=== PATIENT | female | born 2000 | race Caucasian/White ===

== ENCOUNTER 2020-07-29 02:04 | Emergency (ER) | payer SELFPAY ==
--- OUTSIDE RECORDS SUMMARY | 2020-07-29 02:06 | XMS REPORT ---
:2000 Author Organization [facility] Address [address] [place] [address] Care Team Providers Name Role Phone Martha Hooper Unavailable [phone] PROBLEMS Type Condition ICD9-CM [id number] Onset Condition SNOMED Code Notes Code Code Dates Status Problem Irregular N92.6 Active 26415709 menstrual cycle Problem Palpitations R00.2 Active 60628896 ALLERGIES No Known Allergies ENCOUNTERS from 2000 to 2020-07-05 Encounter Location Date Provider Diagnosis [facility] [address] Jun, Martha Hooper BCP ( control Family [facility] [place], [place] pills) i nitiation [id number] Z30.011 and Irregular menst rual cycle N92.6 IMMUNIZATIONS Vaccine Route Administration Date Status medroxyprogesterone ac IM Intramuscular January 05, 2018 Administ ered medroxyprogesterone ac Unknown December 30, 2017 Pending SOCIAL HISTORY Tobacco Use: Social History Observation Description Date Details (start date - stop date) Never Smoker Sex Assigned At : Social History Observation Description Sex Assigned At Unknown Tobacco Use/Smoking Question Answer Notes Are you a never smoker REASON FOR REFERRAL No Information VITAL SIGNS Height 66 in Jun, Weight 108 lbs Jun, Temperature 97.0 degrees Fahrenheit Jun, BMI 17.43 kg/m2 Jun, Oximetry 96 % Jun, Respiratory Rate 16 /min Jun, Blood pressure systolic 110 mm Hg Jun, Blood pressure diastolic 63 mm Hg Jun, MEDICATIONS Medication SIG (Take, Route, Notes Start Date End Date Status Frequency, Duration) Sprintec 28 0.25-35 MG-MCG 1 tablet Orally Once a Mar, Active day for 30 days Multivitamin Active PROCEDURES No Information RESULTS Component Value Reference Range Test, Urine Reviewed date:07/05/2020 18:05:33 Interpretation:Negative Performing Lab: Test, Urine Request Problem REASON FOR VISIT 2 week follow up [id number]) MEDICAL (GENERAL) HISTORY Type Description Date Surgical History No Surgical history information Goals Section No Information Health Concerns No Information MEDICAL EQUIPMENT No Information MENTAL STATUS No Information FUNCTIONAL STATUS No Information ASSESSMENTS Encounter Date Diagnosis Assessment Notes Treatment Notes Treatm ent Clinical Notes Jun, BCP ( control start as drie cted pills) initiation take daily (ICD-10 - Z30.011) continue to use condoms for sex BCP takes 2 weeks to get into system. Jun, Irregular menstrual cycle (ICD-10 - N92.6) PLAN OF TREATMENT Medication Medication Name Sig Start Date Stop Date Sprintec 28 0.25-35 MG-MCG 1 tablet Orally Once a day for 30 Mar, days Treatment Notes Assessment Notes Clinical Notes BCP ( control pills) start as driectedtake dailycontinu e initiation to use condoms for sex BCP takes 2 weeks to get into system. Next Appt Details 1 Year Reason: Provider Name:Martha Hooper, 2021-07-05 10 :20:00 AM, [address] [facility], [address], [place], [address],
--- OUTSIDE RECORDS SUMMARY | 2020-07-29 02:06 | XMS REPORT | Summary of Care ---
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 Palpitations; [address] [phone] Allergies No Known Allergiesdocumented as of this encounter (statuses as of 05/05/2020) Medications No known medicationsdocumented as of this encounter (statuses as of 05/05/2020) Active Problems No known active problemsdocumented as of this encounter (statuses as of 05/05/2020) Social History Tobacco Use Types Packs/Day Years Used Date Never Assessed Sex Assigned at Date Recorded Not on file COVID-19 Exposure Response Date Recorded In the last month, have you been in contact with No / Unsure 05/04/2020 11:18 PM CDT someone who was confirmed or suspected to have Coronavirus / COVID-19? documented as of this encounter Last Filed Vital Signs Vital Sign Reading Time Taken Comments Blood Pressure 113/71 05/05/2020 12:44 AM CDT Pulse 88 05/05/2020 12:44 AM CDT Temperature 37.2 C (99 F) 05/04/2020 11:21 PM CDT Respiratory Rate 22 05/05/2020 12:44 AM CDT Oxygen Saturation 98% 05/05/2020 12:44 AM CDT Inhaled Oxygen Concentration - - Weight 50.8 kg (112 lb) 05/04/2020 11:21 PM CDT Height 165.1 cm (5' 5") 05/04/2020 11:21 PM CDT Body Mass Index 18.64 05/04/2020 11:21 PM CDT documented in this encounter Discharge Instructions SisiWarren franceDREW - 05/05/2020DIAGNOSIS 1. Palpitations 2. Dehydration NO LIFE-THREATENING FINDINGS ON TODAY'S EXAM. RECOMMEND FOLLOW-UP WITH A PRIMARY CARE PROVIDER OR SPECIALIST IN 2-5 DAYS, ESPECIALLY IF NO IMPROVEMENT IN SYMPTOMS. MAY FOLLOW-UP WITH A PROVIDER OF YOUR CHOICE, SUCH : 1. A PHYSICIAN OF YOUR CHOICE 2. [address] [place] [address]; [phone] 3. [facility], [address] [place] [address]; [phone] OR, IF YOU WISH TO FOLLOW-UP WITHIN THE [facility], MAY TRY THESE OPTIONS (CLINIC APPOINTMENTS AVAILABLE ON [id number] BASIS): 1. SCHEDULE AN APPOINTMENT ONLINE AT [email or web address] 2. OR CALL THE [facility] AT OR 3. OR CALL YOUR [facility] PHYSICIAN'S OFFICE DIRECTLY IF YOU ARE ALREADY AN ESTABLISHED [facility] PATIENT. RETURN TO ER FOR WORSENING OF SYMPTOMS. AttachmentsThe following attachments cannot be sent through Care Everywhere. Palpitations (Mongolian)Dehydration (Adult) (Mongolian)documented in this encounter ED Notes Kaylee Alejandra RN - 05/04/2020 11:18 PM CDTCC: "My blood sugar and my heart rate has been up and down off and on all day." Pt denies diabetes and hasn't checked her heart rate." PMHx: none PSH:none MEDS: none daily; no OTC today; drank coffee in the morning for the first time in "a while" LMP: 03/01/20 Tetanus: Over 5 yrs Awake, alert, oriented, resp reg unlabored, skin warm, color appropriate for race, moves all ext without difficulty, amb with steady gait Appears in no distress documented in this encounter Miscellaneous Notes ED Nurse Note - Kaylee Alejandra RN - 05/04/2020 11:27 PM CDTDuring 1 min walk test, patient's HR went up to 130s and O2 sat remained upper 90s documented in this encounter Plan of Treatment Health Maintenance Due Date Last Done Comments VARICELLA VACCINES (1 of 2 - 2-dose 2001 childhood series) MENINGOCOCCAL B VACCINES (1 of 2 - 2010 Risk Bexsero 2-dose series) HPV VACCINES (1 - 2-dose series) 2011 Depression Screening 2012 WELL CARE VISIT: 12-21 YEARS 2012 (yearly) CHLAMYDIA SCREENING 2016 DTaP,Tdap,and Td Vaccines (1 - 2019 Tdap) INFLUENZA VACCINE (#1) 2020 MENINGOCOCCAL VACCINE Aged Out No longer eligible based on patient's age to complete this topic PNEUMOCOCCAL 0-64 YEARS COMBINED Aged Out No longer eligible based on SERIES patient's age to complete this topic documented as of this encounter Procedures Procedure Name Priority Date/Time Associated Diagnosis Comme nts CBC WITH DIFF STAT 05/05/2020 12:18 Tachycardia Results fo r this AM CDT procedure are i n the results section. COMP. METABOLIC STAT 05/05/2020 12:18 Tachycardia Results for this PANEL (47302) AM CDT procedure are in the results section. THYROID STIMULATING STAT 05/05/2020 12:18 Tachycardia Resu lts for this HORMONE AM CDT procedure are i n the results section. COVID-19 (ID NOW STAT 05/04/2020 11:43 Tachycardia Results for this RAPID TESTING) PM CDT procedure are in the results section. URINALYSIS STAT 05/04/2020 11:43 Tachycardia Results for this PM CDT procedure are i n the results section. POCT TEST ROLAND 05/04/2020 11:42 Tachycardia Resu lts for this PM CDT procedure are i n the results section. EKG-12 LEAD Routine 05/04/2020 11:26 PM CDT NOTICE OF PRIVACY Routine 05/04/2020 11:14 PRACTICES PM CDT CONSENT/REFUSAL FOR Routine 05/04/2020 11:13 DIAGNOSIS AND PM CDT TREATMENT documented in this encounter Results COMP. METABOLIC PANEL (30499) (05/05/2020 12:18 AM CDT) NA 138 135 - 145 [facility] mmol/L [facility] K 4.0 3.5 - 5.0 [facility] mmol/L [facility] CL 101 98 - 108 mmol/L [facility] CO2 TOTAL 26 23 - 31 mmol/L [facility] AGAP 11 2 - 16 [facility] BUN 15 7 - 23 mg/dL [facility] GLUCOSE 145 (H) 70 - 110 mg/dL [facility] CREATININE 1.40 (H) 0.50 - 1.04 [facility] mg/dL [facility] TOTAL BILI 0.6 0.1 - 1.1 mg/dL [facility] CALCIUM 9.9 8.6 - 10.6 [facility] mg/dL [facility] T PROTEIN 8.0 6.3 - 8.2 g/dL [facility] ALBUMIN 4.6 3.5 - 5.0 g/dL [facility] ALK PHOS 42 34 - 122 U/L [facility] ALTv 13 5 - 35 U/L [facility] AST(SGOT) 22 13 - 40 U/L [facility] eGFR Calculation 48.4 mL/min/1.73m2 [facility] [place]) eGFR Calculation 58.7 mL/min/1.73m2 [facility] () [facility] Specimen Blood - VENOUS Narrative Performed At Association of Glomerular Filtration Rate (GFR) [facility] and Staging of Kidney Disease* + + +- + | GFR (mL/min/1.73 m2) | With Kidney Damage | Without Kidney Damage + + +- + | >90 | Stage one | Normal + + +- + | 60-89 | Stage two | Decreased GFR + + +- + | 30-59 | Stage three | Stage three + + +- + | 15-29 | Stage four | Stage four + + +- + | <15 (or dialysis) | Stage five | Stage five + + +- + *Each stage assumes the associated GFR level has been in effect for at least three months. Stages 1 to 5, with or without kidney disease, indicate chronic kidney disease. Notes: Determination of stages one and two (with eGFR >59mL/min/1.73 m2) requires estimation of kidney damage for at least three months as defined by structural or functional abnormalities of the kidney, manifested by either: Pathological abnormalities or Markers of kidney damage (including abnormalities in the composition of the blood or urine or abnormalities in imaging tests). Performing Organization Address City/[facility] Phone Number [facility] CLIA: [id number] [place] [address] THYROID STIMULATING HORMONE (05/05/2020 12:18 AM CDT) Pathologist Sig [facility] TSH 2.30 0.45 - 4.70 mIU/L [facility] Specimen Blood - VENOUS Performing Organization Address [facility] Phone Number [facility] CLIA: [id number] [place] [address] LABORATORY [address] [facility] CBC with Differential (05/05/2020 12:18 AM CDT) Pathologist [facility] WBC 9.15 4.30 - 11.10 [facility] 10*3/L [facility] RBC 4.87 3.93 - 5.25 [facility] 10*6/L [facility] HGB 14.4 11.6 - 15.0 [facility] g/dL [facility] HCT 41.8 35.7 - 45.2 % [facility] MCV 85.8 80.6 - 95.5 fL [facility] MCH 29.6 25.9 - 32.8 pg [facility] MCHC 34.4 31.6 - 35.1 [facility] g/dL [facility] RDW-SD 38.2 (L) 39.0 - 49.9 fL [facility] RDW-CV 12.3 12.0 - 15.5 % [facility] PLT 271 166 - 358 [facility] 10*3/L [facility] MPV 10.1 9.5 - 12.9 fL [facility] NRBC/100 WBC 0.0 0.0 - 10.0 /100 [facility] WBCs [facility] NRBC x10^3 <0.01 10*3/L [facility] GRAN MAT (NEUT) % 57.8 % [facility] IMM GRAN % 0.30 % [facility] LYMPH % 31.5 % [facility] MONO % 9.7 % [facility] EOS % 0.3 % [facility] BASO % 0.4 % [facility] GRAN MAT x10^3(ANC) 5.28 1.88 - 7.09 [facility] 10*3/uL HOSPITAL LABORATORY IMM GRAN x10^3 0.03 0.00 - 0.06 [facility] 10*3/uL HOSPITAL LABORATORY LYMPH x10^3 2.88 1.32 - 3.29 [facility] 10*3/uL [facility] MONO x10^3 0.89 0.33 - 0.92 [facility] 10*3/uL [facility] EOS x10^3 0.03 0.03 - 0.39 [facility] 10*3/uL [facility] BASO x10^3 0.04 0.01 - 0.07 [facility] 10*3/uL [facility] Specimen Blood - VENOUS Performing Organization Address City/State/Zipcode Phone Number [facility] CLIA: [id number] [place] [address] COVID-19 (ID NOW RAPID TESTING) (05/04/2020 11:43 PM CDT) SARS-CoV-2 Rapid ID Not Detected Not Detected [facility] Specimen Swab - NASOPHARYNGEAL SWAB Narrative Performed At [facility] NOW COVID-19 Assay is an isothermal nucleic [facility] acid amplification test intended for the qualitative detection of nucleic acid from SARS-CoV-2 viral RNA in nasopharyngeal (RAILROAD CRANE OPERATOR) specimens. It is used under Emergency Use Authorization (EUA) by FDA. The limit of detection (LOD) of the assay is 125 Genome Equivalents/mL. A positive result is indicative of the presence of SARS-CoV-2 RNA. Clinical correlation with patient history and other diagnostic information is necessary to determine patient infection status. A negative (Not Detected) result does not preclude SARS-CoV-2 infection. In patients with clinical symptoms and other tests that are consistent with SARS-CoV-2 infection, negative results should be treated as presumptive negative and a new specimen should be tested with alternative PCR molecular test. Invalid: Please collect a new specimen for repeat patient testing if clinically indicated. Performing Organization Address [facility]code Phone Number [facility] CLIA: [id number] [place] [address] [place] [address] URINALYSIS (05/04/2020 11:43 PM CDT) Pathologist Sig nature APPEARANCE Cloudy (A) Clear [facility] COLOR Yellow Yellow [facility] PH 6.0 4.8 - 8.0 [facility] SP GRAVITY 1.003 1.003 - 1.030 [facility] GLU U QUAL Normal Normal [facility] BLOOD 1+ (A) Negative [facility] KETONES Negative Negative [facility] PROTEIN Negative Negative [facility] UROBILIN Normal Normal [facility] BILIRUBIN Negative Negative [facility] NITRITE Negative Negative [facility] LEUK ERROL 500/uL (A) Negative [facility] RBC/HPF 10 (H) 0 - 3 HPF [facility] WBC/HPF 20 (H) 0 - 5 HPF [facility] BACTERIA Few (A) Negative [facility] SQ EPITH 19 HPF [facility] Specimen Urine - URINE, CLEAN CATCH Performing Organization Address City/[facility] Phone Number [facility] CLIA: [id number] [place] [address] [place] [address] POCT TEST (05/04/2020 11:42 PM CDT) Pathologist Sig nature POCT PREG negative On board controls acceptable present with C Line POCT PREG LOT # [id number] POCT PREG TEST DATE 03/27/2021 Specimen Urine - URINE, CLEAN CATCH documented in this encounter Visit Diagnoses Diagnosis Tachycardia - Primary Tachycardia, unspecified Palpitations Dehydration documented in this encounter Administered Medications Medication Order MAR Action Action Date Dose Rate Site NaCl 0.9% (NS) bolus New Bag 05/05/2020 12:18 AM CDT 1,000 mL 99 9 mL/hr infusion 1,000 mL at 999 mL/hr, 1,000 mL, IV Infusion, ONCE, 1 dose, Edidre 05/04/20 at 2345, ROLAND documented in this encounter Additional Health Concerns Infection Onset Date Last Indicated Resolved Time COVID-19 Rule Out 05/04/2020 05/04/2020 05/05/2020 12: 43 AM CDT documented as of this encounter
--- OUTSIDE RECORDS SUMMARY | 2020-07-29 02:06 | XMS REPORT | Continuity of Care Document ---
:2000 Author Organization [facility] t Address [address] [place] [address] Care Team Providers Name Role Phone PotterSeun Santana Attending Clinician Problems This patient has no known problems. Allergies, Adverse Reactions, Alerts This patient has no known allergies or adverse reactions. Medications Ordered Filled Start Stop Current Ordering Indication Dosage Frequency Signature Comments Components Source Medication Medication Date Date Medication? Clinician (SIG) Name Name Sprintec 28 Sprintec 28 Yes Christina [address] [facility] 03-31 [facility] Procedures This patient has no known procedures. Encounters Start End Encounter Admission Attending Care Care Encounter Source Date/Time Date/Time Type Type Clinicians Facility Department ID 2020-07-05 2020-07-05 Outpatient [facility] [id number] [facility] 2020-06-21 2020-06-21 Outpatient [facility] [id number] [facility] 2020-05-04 2020-05-05 Emergency [facility] [id number] 23:28:00 02:26:00 Warren Viera [id number] [place] [id number] [place] [id number] 2018-03-31 2018-03-31 [facility] [id number] [facility] 10:30[facility]00 10:30:00 [facility] 2018-01-05 2018-01-05 [facility] [id number] 10:[facility]00 10:[facility]:00 [facility] 2017-12-30 2017-12-30 [facility] [id number] [facility] 09:30:00 09:30:00 [facility] 2017-12-04 2017-12-04 [facility] [id number] 14:37:00 14:37:00 [facility] 2017-10-23 2017-10-23 Out[facility] [id number] 10:15:00 10:15:00 [facility] Results This patient has no known results.
--- OUTSIDE RECORDS SUMMARY | 2020-07-29 02:06 | XMS REPORT ---
:2000 Author Organization [facility] Address [address] [facility] [place] [address] Care Team Providers Name Role Phone Martha Hooper Unavailable [phone] PROBLEMS Type Condition ICD9-CM [id number] Onset Condition SNOMED Code Notes Code Code Dates Status Problem Irregular N92.6 Active 35172285 menstrual cycle Problem Palpitations R00.2 Active 72729433 ALLERGIES No Known Allergies ENCOUNTERS from 2000 to 2020-06-26 Encounter Location Date Provider Diagnosis [facility] [address] [facility] [address] May, Martha Hooper Mayra gular menstrual Family Medicine [address], cycle N 92.6 ; [place] [phone] Palpitations R 00.2 and Dizziness R42 IMMUNIZATIONS Vaccine Route Administration Date Status medroxyprogesterone [...] No Information VITAL SIGNS Height 66 in May, Weight 107.4 lbs May, Temperature 97.1 degrees Fahrenheit May, BMI 17.33 kg/m2 May, Oximetry 98 % May, Respiratory Rate 16 /min May, Blood pressure systolic 108 mm Hg May, Blood pressure diastolic 61 mm Hg May, MEDICATIONS Medication SIG (Take, Route, Notes Start Date End Date Status Frequency, Duration) Multivitamin Active Sprintec 28 0.25-35 1 tablet Orally Once a 04 Mar, 2018 Not-Taking MG-MCG day for 28 day(s) PROCEDURES No Information RESULTS No Results 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 - To Establish Care/Possible Blood sugar issue MEDICAL (GENERAL) HISTORY Type Description Date Surgical History No know Surgical history Goals Section No Information Health Concerns No Information MEDICAL EQUIPMENT No Information MENTAL STATUS No Information FUNCTIONAL STATUS No Information ASSESSMENTS Encounter Date Diagnosis Assessment Notes Treatment Notes Treatm ent Clinical Notes May, Irregular menstrual will continue cycle (ICD-10 - condoms for now N92.6) May, Palpitations (ICD-10 monigtor if - R00.2) return will send to cardiology May, Dizziness (ICD-10 - monitor R42) PLAN OF TREATMENT Treatment Notes Assessment Notes Clinical Notes Irregular menstrual cycle will continue condoms for now Palpitations monigtor if return will send to cardiolo gy Dizziness monitor Treatment Notes Test Name Order Date Comp. Metabolic Panel (14) (CMP) 2020-06-26 TSH 2020-06-26 CBC With Differential/Platelet 2020-06-26 Next Appt Details 2 Weeks Reason:lab reviews Provider Name:Martha Hooper 2020-06-28 08 :30:00 AM, [address], [address], [place], [address], Provider Name:Martha Hooper 2020-07-05 11 :20:00 AM, [address], [address], [place], [address], Follow Up:2 Weekslab reviews
[2020-07-29] MEDS ORDERED: TRAMADOL HCL 50 MG TAB ONE (02:42)
[2020-07-29 02:51] LABS: Urine Blood TRACE (NEG); Urine Glucose NEGATIVE (NEG); Urine Protein NEGATIVE (NEG)
--- NOTE | 2020-07-29 03:34 | EDPHYS ---
Physician Documentation [facility] Name: Yasmin Velez Age: 20 yrs Sex: Female : 2000 Arrival Date: 07/29/2020 Time: 02:05 Bed 8 Private MD: ED Physician Sumeet Haines HPI: 07/29 02:24 This 20 yrs old Female presents to ER via Ambulatory with complaints of pkl Headache. 02:24 The patient complains of pain to the top of head and forehead. The patient describes pkl the headache as intermittent. Onset: The symptoms/episode began/occurred just prior to arrival, 2 month(s) ago, and became worse. Associated signs and symptoms: Pertinent positives: dizziness. 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 - Social history:: Smoking status: Patient denies any tobacco usage or history of. ROS: 02:24 Eyes: Negative for injury, pain, redness, and discharge, ENT: Negative for injury, pkl pain, and discharge, Neck: Negative for injury, pain, and swelling, Cardiovascular: Negative for chest pain, palpitations, and edema, Respiratory: Negative for shortness of breath, cough, wheezing, and pleuritic chest pain, Abdomen/GI: Negative for abdominal pain, nausea, vomiting, diarrhea, and constipation, Back: Negative for injury and pain, : Negative for injury, bleeding, discharge, and swelling, MS/Extremity: Negative for injury and deformity, Skin: Negative for injury, rash, and discoloration. 02:24 Neuro: Positive for dizziness, headache. Exam: 02:24 Head/Face: Normocephalic, atraumatic. Eyes: Pupils equal round and reactive to light, pkl extra-ocular motions intact. Lids and lashes normal. Conjunctiva and sclera are non-icteric and not injected. Cornea within normal limits. Periorbital areas with no swelling, redness, or edema. ENT: Nares patent. No nasal discharge, no septal abnormalities noted. Tympanic membranes are normal and external auditory canals are clear. Oropharynx with no redness, swelling, or masses, exudates, or evidence of obstruction, uvula midline. Mucous membranes moist. Neck: Trachea midline, no thyromegaly or masses palpated, and no cervical lymphadenopathy. Supple, full range of motion without nuchal rigidity, or vertebral point tenderness. No Meningismus. Chest/axilla: Normal chest wall appearance and motion. Nontender with no deformity. No lesions are appreciated. Cardiovascular: Regular rate and rhythm with a normal S1 and S2. No gallops, murmurs, or rubs. Normal PMI, no JVD. No pulse deficits. Respiratory: Lungs have equal breath sounds bilaterally, clear to auscultation and percussion. No rales, rhonchi or wheezes noted. No increased work of breathing, no retractions or nasal flaring. Abdomen/GI: Soft, non-tender, with normal bowel sounds. No distension or tympany. No guarding or rebound. No evidence of tenderness throughout. Back: No spinal tenderness. No costovertebral tenderness. Full range of motion. Skin: Warm, dry with normal turgor. Normal color with no rashes, no lesions, and no evidence of cellulitis. MS/ Extremity: Pulses equal, no cyanosis. Neurovascular intact. Full, normal range of motion. Neuro: Awake and alert, GCS 15, oriented to person, place, time, and situation. Cranial nerves II-XII grossly intact. Motor strength 5/5 in all extremities. Sensory grossly intact. Cerebellar exam normal. Normal gait. Vital Signs: 02:14 BP 119 / 93; Pulse 105; Resp 16; Temp 99(TE); Pulse Ox 100% on R/A; Weight 48.53 kg lp1 (R); Height 5 ft. 6 in. (167.64 cm); Pain 5/10; 03:26 BP 130 / 85; Pulse 75; Resp 19; Pulse Ox 99% ; rr5 02:14 Body Mass Index 17.27 (48.53 kg, 167.64 cm) lp1 MDM: 02:17 Patient medically screened. pk 03:31 Data reviewed: vital signs, nurses notes, radiologic studies, CT scan. ED course: pk Patient feeling better. Discussed CT Scan results with patient. Advised to follow up with PCP next week. Patient understood instructions. 07/29 02:43 Order name: Urine --Ancillary (enter results); Complete Time: 03:35 tt3 07/29 02:43 Order name: Urine Dipstick--Ancillary (enter results); Complete Time: 03:35 tt3 07/29 02:23 Order name: CT Head Brain wo Cont pkl 07/29 02:43 Order name: Urine Test (obtain specimen); Complete Time: 02:43 tt3 07/29 02:43 Order name: Urine Dipstick-Ancillary (obtain specimen); Complete Time: 02:43 tt3 Administered Medications: 02:31 Drug: UltRAM 50 mg {Note: rass 0.} Route: PO; rr5 03:35 Follow up: Response: No adverse reaction; Marked relief of symptoms mg2 Disposition: 07/29/20 03:33 Discharged to Home. Impression: Acute headache. - Condition is Stable. - Prescriptions for Ultram 50 mg Oral Tablet - take 1 tablet by ORAL route 2 times per day As needed; 12 tablet. - Medication Reconciliation Form, Thank You Letter, Antibiotic Education, Prescription Opioid Use form. - Follow up: Private Physician; When: 2 - 3 days; Reason: Re-evaluation by your physician. - Problem is new. - Symptoms have improved. Signatures: Dispatcher [employer] EDMS Sumeet Haines MD MD pkl Kristin Ortez RN RN lp1 Finn Soto RN RN rr5 Broderick Phan tt3 Ashish Coughlin RN mg2 Corrections: (The following items were deleted from the chart) 03:38 03:33 07/29/2020 03:33 Discharged to Home. Impression: Acute headache. Condition is rr5 Stable. Forms are Medication Reconciliation Form, Thank You Letter, Antibiotic Education, Prescription Opioid Use. Follow up: Private Physician; When: 2 - 3 days; Reason: Re-evaluation by your physician. Problem is new. Symptoms have improved. pkl
--- NOTE | 2020-07-29 03:34 | ER ---
Nurse's Notes [facility] Name: Yasmin Velez Age: 20 yrs Sex: Female : 2000 Arrival Date: 07/29/2020 Time: 02:05 Bed 8 Private MD: Diagnosis: Acute headache Presentation: 07/29 02:14 Chief complaint: Patient states: Reports hx of tension headaches for the last 2 months, lp1 states feeling a bump on her head tonight that concerned her; States some dizziness with tension headaches. Coronavirus screen: Client denies travel out of the [place] in the last 14 days. At this time, the client does not indicate any symptoms associated with coronavirus-19. Ebola Screen: No symptoms or risks identified at this time. Initial Sepsis Screen: Does the patient meet any 2 criteria? No. Patient's initial sepsis screen is negative. Does the patient have a suspected source of infection? No. Patient's initial sepsis screen is negative. Risk Assessment: Do you want to hurt yourself or someone else? Patient reports no desire to harm self or others. Onset of symptoms was July 29, 2020. 02:14 Method Of Arrival: Ambulatory lp1 02:14 Acuity: JIL 3 lp1 Triage Assessment: 02:20 Headache History: The patient has had previous headaches and this one is similar to rr5 previous episodes. Pain: Also complains of no other associated symptoms. 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 - Social history:: Smoking status: Patient denies any tobacco usage or history of. Screenin:17 Abuse screen: Denies threats or abuse. Denies injuries from another. Nutritional lp1 screening: No deficits noted. Tuberculosis screening: No symptoms or risk factors identified. Fall Risk None identified. Assessment: 02:15 General: Appears in no apparent distress. comfortable, Behavior is calm, cooperative, rr5 appropriate for age. Pain: Complains of pain in head Pain currently is 5 out of 10 on a pain scale. Quality of pain is described as aching, Pain began gradually, Is intermittent. Neuro: Level of Consciousness is awake, alert, obeys commands, Oriented to person, place, time, situation, Reports headache. Cardiovascular: Capillary refill < 3 seconds Patient's skin is warm and dry. Respiratory: Airway is patent Respiratory effort is even, unlabored, Respiratory pattern is regular, symmetrical. GI: No signs and/or symptoms were reported involving the gastrointestinal system. : No signs and/or symptoms were reported regarding the genitourinary system. EENT: No signs and/or symptoms were reported regarding the EENT system. Derm: Skin is intact, is healthy with good turgor, Skin temperature is warm. Musculoskeletal: Circulation, motion, and sensation intact. Capillary refill < 3 seconds. 03:24 Reassessment: Patient appears in no apparent distress at this time. Patient is alert, rr5 oriented x 3, equal unlabored respirations, skin warm/dry/pink. awaiting for results. 03:37 Reassessment: Patient appears in no apparent distress at this time. Patient is alert, rr5 oriented x 3, equal unlabored respirations, skin warm/dry/pink. discharge instruction given and explained without complaints made Patient denies pain at this time. Patient states feeling better. Patient states symptoms have improved. Vital Signs: 02:14 BP 119 / 93; Pulse 105; Resp 16; Temp 99(TE); Pulse Ox 100% on R/A; Weight 48.53 kg lp1 (R); Height 5 ft. 6 in. (167.64 cm); Pain 5/10; 03:26 BP 130 / 85; Pulse 75; Resp 19; Pulse Ox 99% ; rr5 02:14 Body Mass Index 17.27 (48.53 kg, 167.64 cm) lp1 ED Course: 02:05 Patient arrived in ED. ag3 02:12 Ashish Coughlin, ERICA is Primary Nurse. mg2 02:16 Triage completed. lp1 02:16 Arm band placed on. lp1 02:16 Patient has correct armband on for positive identification. Side rails up X 1. Pulse ox rr5 on. NIBP on. 02:16 No provider procedures requiring assistance completed. rr5 02:17 Sumeet Haines MD is Attending Physician. pkl 02:52 CT Head Brain wo Cont In Process Unspecified. EDMS 03:37 Patient did not have IV access during this emergency room visit. rr5 Administered Medications: 02:31 Drug: UltRAM 50 mg {Note: rass 0.} Route: PO; rr5 03:35 Follow up: Response: No adverse reaction; Marked relief of symptoms mg2 Outcome: 03:33 Discharge ordered by . alexsandra 03:37 Discharged to home ambulatory. rr5 03:37 Condition: stable 03:37 Discharge instructions given to patient, Instructed on discharge instructions, follow up and referral plans. medication usage, Demonstrated understanding of instructions, follow-up care, medications, Prescriptions given X 1. 03:38 Patient left the ED. rr5 Signatures: Dispatcher [employer] EDNC Sumeet Haines MD MD pkl Pena, Laura RN RN lp1 Ashish Coughlin RN RN mg2 Jodee Hallman Raymond RN RN rr5
[2020-07-29 03:42] VITALS: TEMP 99
[2020-07-29 03:44] VITALS: BP 130/85; O2SAT 99
--- NOTE | 2020-07-30 14:04 | RAD REPORT ---
EXAM DESCRIPTION: CT - Head Brain Wo Marly - 07/29/2020 6:43 am CLINICAL HISTORY: The patient is 20 years old and is Female; Dizziness;Headache TECHNIQUE: Axial computed tomography images of the head/brain without intravenous contrast. Sagitt al and coronal reformatted images were created and reviewed. This CT exam was performed using one o r more of the following dose reduction techniques: automated exposure control, adjustment of the mA and/or kV according to patient size, and/or use of iterative reconstruction technique. COMPARISON: No relevant prior studies available. FINDINGS: BRAIN: Unremarkable. The herr-white matter differentiation is preserved . No hemorrhag e. No significant white matter disease. No edema. No extra-axial fluid collections. VENTRICLES: Unremarkable. No ventriculomegaly. BONES/JOINTS: No acute fracture. SOFT TISSUES: Unremarkable. SINUSES: Unremarkable as visualized. No acute sinusitis. MASTOID AIR CELLS: Unremarkable as visualized. No mastoid effusion. ORBITS: Unremarkable as visualized. IMPRESSION: No acute intracranial findings. 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 The interpreting radiologist is fully responsible for the content of the report.
== END 2020-07-29 03:38 | disposition home or self-care (01) ==
LOC: ER 02:04
DX: R51.9 Headache, unspecified (principal)
CPT/HCPCS: 70450; 81003; 81025; 99284

== ENCOUNTER 2021-10-18 23:31 | Emergency (ER) | payer SELFPAY ==
--- OUTSIDE RECORDS SUMMARY | 2021-10-18 23:34 | XMS REPORT | Continuity of Care Document ---
:2000 Author Organization [facility] t Address [address] [place] [address] Care Team Providers Name Role Phone PCP, DOES NOT HAVE A Primary Care Physician Unavailable Rufus Attending Clinician Unavailable Jeremías LR Attending Clinician Unavailable Corey GUERRERO S Attending Clinician Izabella MALDONADO Attending Clinician Unavailable Seun Bloom Attending Clinician Seun SMITH Attending Clinician Unavailable Problems Condition Condition Condition Status Onset Resolution Last Treating Co mments Source Name Details Category Date Date Treatment Clinician Date No known No known Disease Unive rs active active ity of problems problems [facility] Allergies, Adverse Reactions, Alerts Allergy Allergy Status Severity Reaction(s) Onset Inactive Treating Comm ents Source Name Type Date Date Clinician NO KNOWN Drug Active Univers ALLERGIE Class ity of S [facility] Social History Social Habit Start Date Stop Date Quantity Comments Source Exposure to Not sure [facility] SARS-CoV-2 (event) Medica l Branch Sex Assigned At 2000 2000 [facility] 00:00:00 00:00:00 [facility] Smoking Status Start Date Stop Date Source Unknown if ever smoked [facility] Medications Ordered Filled Start Stop Current Ordering Indication Dosage Frequency Signature Comments Components Source Medication Medication Date Date Medication? Clinician (SIG) Name Name amoxicillin 2021- No 500mg 500 mg, U nivers (TRIMOX) 08-15 Oral, ity of capsule 500 09:00: 07:51 [place] 00 :00 dose, On Medical Wed Branch 08/15/21 at 0300, ROLAND
Re ason for Anti-Infec tive: Documented Infection< br>Documen iván Infection Site: HEENT
D uration of Therapy: Other (see Comments) amoxicillin Yes [id number] 500mg Take 1 Univers 500 mg 1-19 capsule by ity of capsule 00:00: mouth 3 [place] (three) Medical times Branch daily. ibuprofen Yes [id number] 800mg Take 1 U nivers 800 mg 1-19 tablet by ity of tablet 00:00: mouth [place] 00 every 8 Medical (eight) Branch hours as needed for Pain (scale 4-6) or Temp > 38.5 C. amoxicillin Yes [id number] 500mg Take 1 Univers 500 mg 1-19 capsule by ity of capsule 00:00: mouth 3 [place] (three) Medical times Branch daily. ibuprofen Yes [id number] 800mg Take 1 U nivers 800 mg 1-19 tablet by ity of tablet 00:00: mouth [place] 00 every 8 Medical (eight) Branch hours as needed for Pain (scale 4-6) or Temp > 38.5 C. NaCl 0.9% 2019-07 No 1000mL at 999 Uni vers (NS) bolus 0-09 10-09 mL/hr, ity of infusion 04:45: 06:50 1,000 mL, Ryne as 1,000 mL 00 :00 IV Medical Infusion, Branch ONCE, 1 dose, [facility] 05/04/20 at 2345, ROLAND Sprintec 28 Sprintec 28 2018-0 Yes Christina [address] [facility] 9-04 [facility] No known No [facility] Vital Signs Vital Name Observation Time Observation Value Comments Source Systolic blood 2021-08-15 06:21:00 116 mm[Hg] Univer sity [facility] Diastolic blood 2021-08-15 06:21:00 69 mm[Hg] [facility] 2021-08-15 06:21:00 99 /min Universi ty [facility] Body temperature 2021-08-15 06:21:00 37.33 Jigna [facility] [place] [facility] Respiratory rate 2021-08-15 06:21:00 18 /min [facility] [place] [facility] Body height 2021-08-15 06:21:00 167.6 cm [facility] [place] [facility] Body weight 2021-08-15 06:21:00 54.432 kg [facility] [place] [facility] BMI 2021-08-15 06:21:00 19.37 kg/m2 [facility] [place] [facility] Oxygen saturation in 2021-08-15 06:21:00 98 /min University of Arterial blood by [place] Medi calvin Pulse oximetry Branch Systolic blood 2020-05-05 05:44:00 113 mm[Hg] Univer sity of pressure [place] [facility] Diastolic blood 2020-05-05 05:44:00 71 mm[Hg] Unive rsity of pressure [place] [facility] Heart rate 2020-05-05 05:44:00 88 /min [facility] [place] [facility] Respiratory rate 2020-05-05 05:44:00 22 /min [facility] [place] [facility] Oxygen saturation in 2020-05-05 05:44:00 98 /min University of Arterial blood by [place] [employer] calvin Pulse oximetry Branch Body temperature 2020-05-05 04:21:00 37.22 Jigna [facility] [place] [facility] Body height 2020-05-05 04:21:00 165.1 cm [facility] [place] [facility] Body weight 2020-05-05 04:21:00 50.803 kg [facility] [place] [facility] BMI 2020-05-05 04:21:00 18.64 kg/m2 [facility] [place] [facility] Systolic blood 2020-05-05 05:44:00 113 mm[Hg] Univer sity of pressure [place] [facility] Diastolic blood 2020-05-05 05:44:00 71 mm[Hg] Unive rsity of pressure [place] [facility] Heart rate 2020-05-05 05:44:00 88 /min [facility] [place] [facility] Respiratory rate 2020-05-05 05:44:00 22 /min [facility] [place] [facility] Oxygen saturation in 2020-05-05 05:44:00 98 /min University of Arterial blood by [place] [employer] calvin Pulse oximetry Branch Body temperature 2020-05-05 04:21:00 37.22 Jigna [facility] Body height 2020-05-05 04:21:00 165.1 cm [facility] Body weight 2020-05-05 04:21:00 50.803 kg [facility] BMI 2020-05-05 04:21:00 18.64 kg/m2 [facility] Procedures Procedure Date / Time Performing Clinician Source Performed RAPID STREP SCREEN FOR 2021-08-15 06:27:00 Mega Lr [facility] GROUP A Medical Branch NOTICE OF PRIVACY 2021-08-15 06:12:48 Doctor Unassigned, No [facility] PRACTICES Name Medical Branch CONSENT/REFUSAL FOR 2021-08-15 06:11:53 Doctor Unassigned, No Un iversity [facility] DIAGNOSIS AND TREATMENT Name Medical Branch CONSENT/REFUSAL FOR 2021-08-15 06:11:52 [facility] THYROID STIMULATING 2020-05-05 05:18:00 Warren Smith [facility] HORMONE [facility] Branch COMP. METABOLIC PANEL 2020-05-05 05:18:00 Warren Smith [facility] ([id number]) Medical Branch CBC WITH DIFF 2020-05-05 05:18:00 Warren Smith [facility] URINALYSIS 2020-05-05 04:43:00 Lenard Hamlin [facility] COVID-19 (ID NOW RAPID 2020-05-05 04:43:00 Warren Smith [facility] TESTING) Medical Kimberly POCT TEST 2020-05-05 04:42:00 Lenard Hamlin [facility] EKG-12 LEAD 2020-05-05 04:26:59 Lenard Hamlin [facility] NOTICE OF PRIVACY 2020-05-05 04:14:09 Doctor Unassigned, No [facility] PRACTICES Name Medical Branch CONSENT/REFUSAL FOR 2020-05-05 04:13:39 Doctor Unassigned, No [facility] Name Medical Kimberly Encounters Start End Encounter Admission Attending Care Care Encounter Source Date/Time Date/Time Type Type Clinicians Facility Department ID 2021-08-22 Outpatient SJ Hooper [facility] [id number] 12:08:19 Martha [id number] [facility] 2021-08-22 Outpatient S[facility] Hooper [facility] [id number] 12:04:46 Martha [id number] [facility] 2021-08-15 2021-08-15 Emergency [facility] [id number] Univers 00:29:00 01:56:00 RANDYKILI ity [facility] 2021-08-15 2021-08-15 Emergency [facility] [id number] Univers 00:29:00 01:56:00 Mega Veronica [place] [id number] ity [facility] [id number] [facility] [place] [id number] [address] 2021-08-15 2021-08-15 Skylar Taveras [id number] Univers 00:00:00 00:00:00 (Out) KALLIE [id number] it [facility] [id number] [facility] [id number] [place] [address] Branch 2020-07-05 2020-07-05 Outpatient [facility] [id number] [facility] 00:[facility]00 [facility] 2020-06-21 2020-06-21 Outpatient [facility] [id number] [facility] 2020-05-04 2020-05-05 Emergency [facility] [id number] 23:28:00 02:26:00 Warren B [place] [id number] [place] 4.2.7.2.686 [place] [id number] [facility] 2020-05-04 2020-05-05 Emergency [facility] [id number] Univers 23:28:00 02:26:00 Warren B [place] [id number] i ty of [place] 4.2.7.2.686 [facility] [id number] [address] 2020-05-04 2020-05-04 Emergency X [facility] ERT [id number] Univers 23:28:00 23:28:00 WARREN ity [facility] 2018-03-31 2018-03-31 [facility] [id number] 10:30:00 10:30:00 [facility] 2018-01-05 2018-01-05 [facility] [id number] 10:00:00 10:00:00 [facility] Bryan juan david [facility] 2017-12-30 2017-12-30 [facility] [id number] 09:30:00 09:30:00 [facility] Bryan juan david [facility] 2017-12-04 2017-12-04 [facility] [id number] 14:37:00 14:37:00 [facility] Bryan juan david [facility] 2017-10-23 2017-10-23 [facility] [id number] 10:15:00 10:15:00 [facility] Bryan juan david [facility] Results Test Description Test Time Test Comments Results Result Comments Source THYROID STIMULATING HORMONE 2020-05-05 06:28:00 Test Item Value Reference Range Interpretation Comme nts TSH (test code = 7359465770) See_Comment [Automated message] The system which generated this result transmitted ref erence range: 0.45 - 4.70 mIU/L. T he reference range was not used to interpret this result as angelic l/abnormal. Lab Interpretation (test code = Normal 59581-2) [facility] ([id number])2020-05-05 06:00:00 Test Item Value Reference Range Interpretation Comments NA (test code = 138 mmol/L 135-145 0370593122) K (test code = 4.0 mmol/L 3.5-5 0016512914) CL (test code = 101 mmol/L 98-108 2226407548) CO2 TOTAL (test code = 26 mmol/L 23-31 3529953258) AGAP (test code = 2-16 7397206148) BUN (test code = 15 mg/dL 7-23 6476386277) GLUCOSE (test code = 145 mg/dL 70-110 H 9955895033) CREATININE (test code = 1.40 mg/dL 0.5-1.04 H 8554278296) TOTAL BILI (test code = 0.6 mg/dL 0.1-1.6 0297822588) CALCIUM (test code = 9.9 mg/dL 8.6-10.6 3062852588) T PROTEIN (test code = 8.0 g/dL 6.3-8.2 0617986133) ALBUMIN (test code = 4.6 g/dL 3.5-5 0917956281) ALK PHOS (test code = 42 U/L 34-122 7005165056) ALTv (test code = 13 U/L 5-35 1742-6) AST(SGOT) (test code = 22 U/L 13-40 0670786707) eGFR Calculation mL/min/1.73m2 (Non-) (test code = 3310058776) eGFR Calculation mL/min/1.73m2 () (test code = 4166063286) SAE (test code = SAE) Association of Glomerular Filtration Rate (GFR) and Staging of Kidney Disease* + --+ --+ ------+| GFR (mL/min/1.73 m2) ?| With Kidney Damage ?| ?Without Kidney Damage+ --------+ --------+ +| ?>90 ?| ?Stage one ?| ? Normal ?+ ---+ ---+ -------+| ?60-89 ?| ?Stage two ?| ? Decreased GFR ? + --+ --+ ------+| ?30-59 ?| ?Stage three ?| ? Stage three ? + --+ --+ ------+| ?15-29 ?| ?Stage four ? | ? Stage four ?+ ---+ ---+ -------+| ?<15 (or dialysis) ? ?| ?Stage five ? | ? Stage five ?+ ---+ ---+ -------+ *Each stage assumes the associated GFR level has been in effect for at least three months. ?Stages 1 to 5, with or without kidney disease, indicate chronic kidney disease. Notes: Determination of stages one and two (with eGFR >59mL/min/1.73 m2) requires estimation of kidney damage for at least three months as defined by structural or functional abnormalities of the kidney, manifested by either:Pathological abnormalities or Markers of kidney damage (including abnormalities in the composition of the blood or urine or abnormalities in imaging tests). 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 It is used under Emergency Use Authorization (EUA) by FDA. The limit of detection (LOD) of the assay is 125 Genome Equivalents/mL. A positive result is indicative of the presence of SARS-CoV-2 RNA. ?Clinical correlation with patient history and other diagnostic [...] for repeat patient testing if clinically indicated. Lab Interpretation Normal (test code = 67880-1) [facility]2020-10-09 05:36:00 Test Item Value Reference Range Interpretation Comments APPEARANCE (test code = Cloudy Clear A 3364396061) COLOR (test code = Yellow Yellow 5613339361) PH (test code = 4.8-8.0 9257651504) SP GRAVITY (test code = 1.003-1.030 6958911888) GLU U QUAL (test code = Normal Normal 0491731140) BLOOD (test code = 1+ Negative A 3871122994) KETONES (test code = Negative Negative 0064900398) PROTEIN (test code = Negative Negative 2887-8) UROBILIN (test code = Normal Normal 4893754266) BILIRUBIN (test code = Negative Negative 3075629045) NITRITE (test code = Negative Negative 3880429685) LEUK ERROL (test code = 500/uL Negative A 1460029064) RBC/HPF (test code = See_Comment H [Autom ated message] 2357258141) The system [employer] generated this result transmitted ref erence range: 0 - 3 HP F. The reference range was not used to int erpret this result as normal/abnormal . WBC/HPF (test code = See_Comment H [Autom ated message] 0485437096) The system [employer] generated this result transmitted ref erence range: 0 - 5 HP F. The reference range was not used to int erpret this result as normal/abnormal . BACTERIA (test code = Few Negative A 8598418948) SQ EPITH (test code = HPF 3480441103) Lab Interpretation (test Abnormal code = 02810-8) [facility] with [id number] 05:35:00 Test Item Value Reference Range Interpretation Comments WBC (test code = See_Comment [Automated 0690-2) message] The sy stem which generated this result transmitted reference range : 4.30 - 11.10 10*3/?L. The reference range was not used to interpret this result as normal/abnormal . RBC (test code = See_Comment [Automated 499-8) message] The sy stem which generated this result transmitted reference range : 3.93 - 5.25 10*6/?L. The reference range was not used to interpret this result as normal/abnormal . HGB (test code = 14.4 g/dL 11.6-15 718-7) HCT (test code = 41.8 % 35.7-45.2 4544-3) MCV (test code = 85.8 fL 80.6-95.5 787-2) MCH (test code = 29.6 pg 25.9-32.8 785-6) MCHC (test code = 34.4 g/dL 31.6-35.1 786-4) RDW-SD (test code = 38.2 fL 39-49.9 L 99799-8) RDW-CV (test code = 12.3 % 12-15.5 788-0) PLT (test code = See_Comment [Automated 777-3) message] The sy stem which generated this result transmitted reference range : 166 - 358 10*3/ ?L. The reference r joleen was not used to interpret this result as normal/abnormal . MPV (test code = 10.1 fL 9.5-12.9 57715-0) NRBC/100 WBC (test See_Comment [Automat ed code = 2108706001) message] The system which generated this result transmitted reference range : 0.0 - 10.0 /100 WBCs. The refer ence range was not u sed to interpret th is result as normal/abnormal . NRBC x10^3 (test code <0.01 See_Comment [Auto mated = 8312884417) message] The s ystem which generated this result transmitted reference range : 10*3/?L. The reference range was not used to interpret this result as normal/abnormal . GRAN MAT (NEUT) % 57.8 % (test code = 770-8) IMM GRAN % (test code 0.30 % = 5966278720) LYMPH % (test code = 31.5 % 736-9) MONO % (test code = 9.7 % 5905-5) EOS % (test code = 0.3 % 713-8) BASO % (test code = 0.4 % 706-2) GRAN MAT x10^3(ANC) 5.28 10*3/uL 1.88-7.09 (test code = 9168390431) IMM GRAN x10^3 (test 0.03 10*3/uL 0-0.06 code = 9572164593) LYMPH x10^3 (test code 2.88 10*3/uL 1.32-3.29 = 731-0) MONO x10^3 (test code 0.89 10*3/uL 0.33-0.92 = 742-7) EOS x10^3 (test code = 0.03 10*3/uL 0.03-0.39 711-2) BASO x10^3 (test code 0.04 10*3/uL 0.01-0.07 = 704-7) Lab Interpretation Abnormal (test code = 57444-3) [facility] [id number] 04:42:00 Test Item Value Reference Range Interpretation Comments POCT PREG (test code = 1605) negative On board controls acceptable with present C Line (test code = 3574) POCT PREG LOT # (test code = 3575) [id number] POCT PREG TEST DATE (test 03/27/2021 code = 3576) Lab Interpretation (test code = Normal 82531-2) [facility]"
[2021-10-19] MEDS ORDERED: NA CHLORIDE 0.9% 1,000 ML ONE (00:33)
[2021-10-19] MEDS ORDERED: ONDANSETRON 4 MG/2 ML VIAL ONE (00:33)
[2021-10-19 00:42] LABS: Absolute Lymphocytes (CBC) 1.3 K/uL (0.7-4.9); Hematocrit 44.2 % (36.0-45.0); Lymphocytes % 15.3 % (15.3-44.8); MPV 9.4 fL (7.6-11.3); RBC Red Blood Cell Count 4.98 M/uL (3.86-4.86)
[2021-10-19 00:50] LABS: Potassium 3.5 mmol/L (3.5-5.1)
--- NOTE | 2021-10-19 01:20 | ER ---
Nurse's Notes [facility] Name: aYsmin Velez Age: 21 yrs Sex: Female : 2000 Arrival Date: 10/18/2021 Time: 23:34 Bed 23 Private MD: Diagnosis: Acute gastroenteritis Presentation: 10/18 23:42 Chief complaint: Patient states: Vomiting that began at 0200 after eating Canes. + ss7 diarrhea with chills. Denies fever. Coronavirus screen: Vaccine status: Patient reports being unvaccinated. Ebola Screen: No symptoms or risks identified at this time. Initial Sepsis Screen: Does the patient meet any 2 criteria? No. Patient's initial sepsis screen is negative. Does the patient have a suspected source of infection? No. Patient's initial sepsis screen is negative. Risk Assessment: Do you want to hurt yourself or someone else? Patient reports no desire to harm self or others. Onset of symptoms was October 18, 2021 at 02:00. 23:42 Method Of Arrival: Ambulatory ss7 23:42 Acuity: JIL 3 ss7 Triage Assessment: 23:43 General: Appears in no apparent distress. Behavior is calm, cooperative, appropriate ss7 for age. Pain: Denies pain. 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 - Social history:: Smoking status: Patient denies any tobacco usage or history of. Screenin/25 00:13 Abuse screen: Denies threats or abuse. Denies injuries from another. Nutritional tk1 screening: No deficits noted. Tuberculosis screening: No symptoms or risk factors identified. Fall Risk None identified. Assessment: 00:13 General: Appears in no apparent distress. comfortable, slender, well groomed, well tk1 developed, well nourished, Behavior is calm, cooperative, appropriate for age. Pain: Complains of pain in abdomen. Neuro: Level of Consciousness is awake, alert, obeys commands, Oriented to place, time, situation, Gymnastics Coach are equal bilaterally Moves all extremities. Gait is steady, Speech is slurred, Facial symmetry appears normal. Cardiovascular: Capillary refill < 3 seconds is brisk in bilateral fingers. Respiratory: Airway is patent Respiratory effort is even, unlabored, Respiratory pattern is regular, symmetrical. GI: Abdomen is flat, non-distended, Bowel sounds present X 4 quads. Abd is soft X 4 quads Reports lower abdominal pain. : No deficits noted. No signs and/or symptoms were reported regarding the genitourinary system. EENT: No deficits noted. No signs and/or symptoms were reported regarding the EENT system. EENT: No deficits noted. No signs and/or symptoms were reported regarding the EENT system. Derm: No deficits noted. No signs and/or symptoms reported regarding the dermatologic system. Musculoskeletal: No deficits noted. No signs and/or symptoms reported regarding the musculoskeletal system. 01:00 Reassessment: Patient and/or family updated on plan of care and expected duration. Pain tk1 level reassessed. Patient is alert, oriented x 3, equal unlabored respirations, skin warm/dry/pink. Patient denies pain at this time. 01:45 Reassessment: D/C per MD order. Discharge/Prescription instructions given to patient tk1 and family member. Verbalized understanding. Vital Signs: 10/18 23:43 BP 116 / 78; Pulse 90; Resp 18; Temp 97.1(TE); Pulse Ox 100% ; Weight 51.71 kg; Height ss7 5 ft. 6 in. (167.64 cm); Pain 0/10; 10/19 00:30 BP 109 / 79 RA Supine (auto/reg); Pulse 82 MON; Resp 18 S; Temp 97.6(O); Pulse Ox 100% tk1 on R/A; Pain 0/10; 01:30 BP 103 / 72 RA Supine (auto/reg); Pulse 72 MON; Resp 16 S; Pulse Ox 100% on R/A; Pain tk1 0/10; 10/18 23:43 Body Mass Index 18.40 (51.71 kg, 167.64 cm) 7 ED Course: 10/18 23:34 Patient arrived in ED. ag3 23:43 Triage completed. ss7 23:43 Arm band placed on right wrist. ss7 23:56 Jesus Beatty PA is PHCP. jr8 23:56 Derrell Coronado MD is Attending Physician. jr8 10/19 00:13 Lalitha Collins is Primary Nurse. tk1 00:13 Placed in gown. Bed in low position. Call light in reach. Adult w/ patient. Pulse ox tk1 on. NIBP on. 00:13 No provider procedures requiring assistance completed. Inserted saline lock: 20 gauge tk1 in left antecubital area, using aseptic technique. Blood collected. 00:23 CBC with Diff Sent. tk1 00:23 Basic Metabolic Panel Sent. tk1 00:24 Flu Sent. tk1 01:48 IV discontinued, intact, bleeding controlled, No redness/swelling at site. Pressure tk1 dressing applied. Administered Medications: 00:37 Drug: NS 0.9% 1000 ml Route: IV; Rate: 1000 ml; Infused Over: 1 hrs; Site: left tk1 antecubital; Delivery: Primary tubing; 01:30 Follow up: Response: No adverse reaction; IV Status: Completed infusion; IV Intake: tk1 1000ml 00:37 Drug: Zofran (Ondansetron) 4 mg Route: IVP; Rate: 2 mg/min; Infused Over: 2 mins; Site: tk1 left antecubital; 01:00 Follow up: Response: Nausea is decreased tk1 Intake: 01:30 IV: 1000ml; Total: 1000ml. tk1 Outcome: 01:19 Discharge ordered by . jr8 01:48 Discharged to home ambulatory, with family. tk1 01:48 Condition: stable 01:48 Discharge instructions given to patient, family, Instructed on discharge instructions, follow up and referral plans. medication usage, Demonstrated understanding of instructions, follow-up care, medications, Prescriptions given X 2. 01:49 Patient left the ED. tk1 Signatures: Jesus Beatty PA PA jr8 Jodee Hallman ag3 Lalitha Collins tk1 Miriam Willson, RN RN ss7
--- NOTE | 2021-10-19 01:20 | EDPHYS ---
Physician Documentation [facility] Name: Yasmin Velez Age: 21 yrs Sex: Female : 2000 Arrival Date: 10/18/2021 Time: 23:34 Bed 23 Private MD: ED Physician Derrell Coronado HPI: 10/19 00:28 This 21 yrs old Female presents to ER via Ambulatory with complaints of Vomiting. jr8 00:28 The patient presents to the emergency department with nausea, vomiting, diarrhea. jr8 Onset: The symptoms/episode began/occurred acutely, yesterday. Possible causes: bad food exposure, chicken. The symptoms are aggravated by nothing. The symptoms are alleviated by nothing. Associated signs and symptoms: The patient has no apparent associated signs or symptoms. Severity of symptoms: At their worst the symptoms were moderate in the emergency department the symptoms are unchanged. The patient has not experienced similar symptoms in the past. The patient has not recently seen a physician. Patient stated that she had raisin canes last night for dinner. About 2:00 in the morning started to have vomiting followed by diarrhea. Since then has had several bouts of both has not been able to keep food or water down. 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 - Social history:: Smoking status: Patient denies any tobacco usage or history of. ROS: 10/19 00:28 Eyes: Negative for injury, pain, redness, and discharge, ENT: Negative for injury, jr8 pain, and discharge, Neck: Negative for injury, pain, and swelling, Cardiovascular: Negative for chest pain, palpitations, and edema, Respiratory: Negative for shortness of breath, cough, wheezing, and pleuritic chest pain, Back: Negative for injury and pain, MS/Extremity: Negative for injury and deformity, Skin: Negative for injury, rash, and discoloration, Neuro: Negative for headache, weakness, numbness, tingling, and seizure. Abdomen/GI: Positive for nausea, vomiting, and diarrhea, Negative for abdominal pain. Exam: 00:28 Constitutional: This is a well developed, well nourished patient who is awake, alert, jr8 and in no acute distress. ENT: Nares patent. No nasal discharge, no septal abnormalities noted. Tympanic membranes are normal and external auditory canals are clear. Oropharynx with no redness, swelling, or masses, exudates, or evidence of obstruction, uvula midline. Mucous membranes moist. Cardiovascular: Regular rate and rhythm with a normal S1 and S2. No gallops, murmurs, or rubs. Normal PMI, no JVD. No pulse deficits. Respiratory: Lungs have equal breath sounds bilaterally, clear to auscultation and percussion. No rales, rhonchi or wheezes noted. No increased work of breathing, no retractions or nasal flaring. Abdomen/GI: Soft, non-tender, with normal bowel sounds. No distension or tympany. No guarding or rebound. No evidence of tenderness throughout. Back: No spinal tenderness. No costovertebral tenderness. Full range of motion. Skin: Warm, dry with normal turgor. Normal color with no rashes, no lesions, and no evidence of cellulitis. MS/ Extremity: Pulses equal, no cyanosis. Neurovascular intact. Full, normal range of motion. Neuro: Awake and alert, GCS 15, oriented to person, place, time, and situation. Cranial nerves II-XII grossly intact. Motor strength 5/5 in all extremities. Sensory grossly intact. Vital Signs: 10/18 23:43 BP 116 / 78; Pulse 90; Resp 18; Temp 97.1(TE); Pulse Ox 100% ; Weight 51.71 kg; Height ss7 5 ft. 6 in. (167.64 cm); Pain 0/10; 10/19 00:30 BP 109 / 79 RA Supine (auto/reg); Pulse 82 MON; Resp 18 S; Temp 97.6(O); Pulse Ox 100% tk1 on R/A; Pain 0/10; 01:30 BP 103 / 72 RA Supine (auto/reg); Pulse 72 MON; Resp 16 S; Pulse Ox 100% on R/A; Pain tk1 0/10; 10/18 23:43 Body Mass Index 18.40 (51.71 kg, 167.64 cm) ss7 MDM: 10/18 23:56 Patient medically screened. [facility] 10/19 01:18 Data reviewed: vital signs, nurses notes, lab test result(s), and as a result, I will jr8 discharge patient. Data interpreted: Pulse oximetry: on room air is 100 %. Interpretation: normal. Counseling: I had a detailed discussion with the patient and/or guardian regarding: the historical points, exam findings, and any diagnostic results supporting the discharge/admit diagnosis, lab results, the need for outpatient follow up, a family practitioner, to return to the emergency department if symptoms worsen or persist or if there are any questions or concerns that arise at home. Response to treatment: the patient's symptoms have markedly improved after treatment, patient is well hydrated. ED course: Discussed with patient there was no acute findings on labs. Patient without vomiting at this time and hemodynamically stable. Will send patient home with antiemetics. He is to follow-up with primary care in the next few days if she were to worsen any point time to come back for further evaluation. Patient complaints time.. 10/19 00:21 Order name: CBC with Diff; Complete Time: 01: 10/19 00:21 Order name: Basic Metabolic Panel; Complete Time: 01: [facility] 10/19 00:21 Order name: IV; Complete Time: 00: [facility] 10/19 00:21 Order name: Flu; Complete Time: 01:18 10/19 00:21 Order name: Urine Test (obtain specimen) [facility] Administered Medications: 00:37 Drug: NS 0.9% 1000 ml Route: IV; Rate: 1000 ml; Infused Over: 1 hrs; Site: left tk1 antecubital; Delivery: Primary tubing; 01:30 Follow up: Response: No adverse reaction; IV Status: Completed infusion; IV Intake: tk1 1000ml 00:37 Drug: Zofran (Ondansetron) 4 mg Route: IVP; Rate: 2 mg/min; Infused Over: 2 mins; Site: tk1 left antecubital; 01:00 Follow up: Response: Nausea is decreased tk1 Disposition: 05:40 Co-signature as Attending Physician, Derrell Coronado MD I agree with the assessment and [facility] plan of care. Disposition Summary: 10/19/21 01:19 Discharge Ordered Location: Home [facility] Problem: new jr8 Symptoms: have improved jr8 Condition: Stable jr8 Diagnosis - Acute gastroenteritis jr8 Followup: jr8 - With: Private Physician - When: 5 - 6 days - Reason: Recheck today's complaints, Continuance of care, Re-evaluation by your physician Discharge Instructions: - Discharge Summary Sheet jr8 - Viral Gastroenteritis, Adult jr8 Forms: - Medication Reconciliation Form jr8 - Thank You Letter jr8 - Antibiotic Education jr8 - Prescription Opioid Use jr8 Prescriptions: - promethazine 25 mg Oral Tablet - take 1 tablet by ORAL route every 6 hours As needed; 20 tablet; Refills: 0, jr8 Product Selection Permitted - dicyclomine 20 mg Oral Tablet - take 1 tablet by ORAL route 3 times per day As needed; 21 tablet; Refills: 0, jr8 Product Selection Permitted Signatures: Dispatcher [employer] EDDerrell Gonzalez MD MD cha Roszak, Josh, PA PA jr8 Lalitha Collins tk1 Miriam Willson RN RN ss7 Corrections: (The following items were deleted from the chart) 01:44 00:21 Urine Dipstick-Ancillary ordered. jr8 tk1
[2021-10-19 02:13] VITALS: O2SAT 100
[2021-10-19 02:14] VITALS: TEMP 97.6
[2021-10-19 02:16] VITALS: BP 103/72
== END 2021-10-19 01:49 | disposition home or self-care (01) ==
LOC: ER 23:31
DX: R11.2 Nausea with vomiting, unspecified (principal); K52.9 Noninfective gastroenteritis and colitis, unspecified
CPT/HCPCS: 36415; 80048; 85025; 87804; 96361; 96374; 99284; J2405; J7030

== ENCOUNTER 2022-04-08 16:40 | Emergency (ER) | payer SELFPAY ==
--- OUTSIDE RECORDS SUMMARY | 2022-04-08 16:43 | XMS REPORT | Continuity of Care Document ---
:2000 Author Organization [facility] t Address [address] [place] [address] Care Team Providers Name Role Phone PCP, PATIENT DOES NOT HAVE A Primary Care Physician UnavailMartha Allen Attending Clinician Unavailable DEVANG LR Attending Clinician Unavailable Devang Lr MD Attending Clinician Skylar Parekh RN Attending Clinician Unavailable Warren Bloom Attending Clinician WARREN SMITH Attending Clinician Unavailable Problems Condition Condition Condition Status Onset Resolution Last Treating Co mments Source Name Details Category Date Date Treatment Clinician Date No known No known Disease Unive rs active active ity of problems problems [facility] Allergies, Adverse Reactions, Alerts Allergy Allergy Status Severity Reaction(s) Onset Inactive Treating Comm ents Source Name Type Date Date Clinician NO KNOWN Drug Active Univers ALLERGIE Class ity of S [facility] Social History Social Habit Start Date Stop Date Quantity Comments Source Exposure to Not sure [facility] SARS-CoV-2 (event) Medica l Branch Sex Assigned At 2000 2000 [facility] 00:00:00 00:00:00 [facility] Smoking Status Start Date Stop Date Source Unknown if ever smoked [facility] Medications Ordered Filled Start Stop Current Ordering Indication Dosage Frequency Signature Comments Components Source Medication Medication Date Date Medication? Clinician (SIG) Name Name amoxicillin No 500mg 500 mg, U nivers (TRIMOX) 08-15 Oral, ity of capsule 500 09:00: 07:51 [place]CE, 1 [place] mg 00 :00 dose, On Medical Wed Branch 08/15/21 at 0300, ROLAND
Re ason for Anti-Infec tive: Documented Infection< br>Documen iván Infection Site: HEENT
D uration of Therapy: Other (see Comments) amoxicillin Yes [id number] 500mg Take 1 Univers 500 mg -19 capsule by ity of capsule 00:00: mouth 3 00 (three) Medical times Branch daily. ibuprofen Yes [id number] 800mg Take 1 U nivers 800 mg -19 tablet by ity of tablet 00:00: mouth [place] 00 every 8 Medical (eight) Branch hours as needed for Pain (scale 4-6) or Temp > 38.5 C. amoxicillin Yes [id number] 500mg Take 1 Univers 500 mg -19 capsule by ity of capsule 00:00: mouth 3 (three) Medical times Branch daily. ibuprofen Yes [id number] 800mg Take 1 U nivers 800 mg -19 tablet by ity of tablet 00:00: mouth [place] 00 every 8 Medical (eight) Branch hours as needed for Pain (scale 4-6) or Temp > 38.5 C. NaCl 0.9% 2019-07 No 1000mL at 999 Uni vers (NS) bolus 0-09 10-09 mL/hr, ity of infusion 04:45: 06:50 1,000 mL, Ryne as 1,000 mL 00 :00 IV Medical Infusion, Branch ONCE, 1 dose, Deidre 05/04/20 at 2345, ROLAND Sprintec 28 Sprintec 28 2018-0 Yes Christina 1 tablet Common 03-31 [facility] 00:00: - [facility] 00 [facility] No known No [facility] Vital Sign[facility] Vital Name Observation Time Observation Value Comments Source Systolic blood 2021-08-15 06:21:00 116 mm[Hg] Univer sity of pressure [facility] Diastolic blood 2021-08-15 06:21:00 69 mm[facility]Hg] [facility] rate 2021-08-15 06:21:00 99 /min [facility] Body temperature 2021-08-15 06:21:00 37.33 Jigna [facility] Respiratory rate 2021-08-15 06:21:00 18 /min [facility] Body height 2021-08-15 06:21:00 167.6 cm [facility] Body weight 2021-08-15 06:21:00 54.432 kg [facility] BMI 2021-08-15 06:21:00 19.37 kg/m2 [facility] Oxygen saturation in 2021-08-15 06:21:00 98 /min University of Arterial blood by [place] [facility]vin Pulse oximetry Branch Systolic blood 2020-05-05 05:44:00 113 mm[Hg] Univer sity of pressure [facility] Diastolic blood 2020-05-05 05:44:00 71 mm[Hg] Unive rsity of pressure [facility] Heart rate 2020-05-05 05:44:00 88 /min [facility] Respiratory rate 2020-05-05 05:44:00 22 /min [facility] Oxygen saturation in 2020-05-05 05:44:00 98 /min University of Arterial blood by [facility] Pulse oximetry Branch Body temperature 2020-05-05 04:21:00 37.22 Jigna [facility] Body height 2020-05-05 04:21:00 165.1 cm [facility] Body weight 2020-05-05 04:21:00 50.803 kg [facility] BMI 2020-05-05 04:21:00 18.64 kg/m2 [facility] Systolic blood 2020-05-05 05:44:00 113 mm[Hg] Univer sity of pressure [facility] Diastolic blood 2020-05-05 05:44:00 71 mm[Hg] Unive rsity of pressure [facility] Heart rate 2020-05-05 05:44:00 88 /min [facility] Respiratory rate 2020-05-05 05:44:00 22 /min [facility] Oxygen saturation in 2020-05-05 05:44:00 98 /min [facility] of Arterial blood by [facility] [place] [facility] Pulse oximetry Branch Body temperature 2020-05-05 04:21:00 37.22 Jigna [facility] Body height 2020-05-05 04:21:00 165.1 cm [facility] Body weight 2020-05-05 04:21:00 50.803 kg [facility] BMI 2020-05-05 04:21:00 18.64 kg/m2 [facility] Procedures Procedure Date / Time Performing Clinician Source Performed RAPID STREP SCREEN FOR 2021-08-15 06:27:00 Devang Lr [facility] GROUP A [facility] [place] NOTICE OF PRIVACY 2021-08-15 06:12:48 Doctor Unassigned, No [facility] PRACTICES Name [facility] [place] CONSENT/REFUSAL FOR 2021-08-15 06:11:53 Doctor Unassigned, No Un iversity [facility] DIAGNOSIS AND TREATMENT Name Medical Branch CONSENT/REFUSAL FOR 2021-08-15 06:11:52 [facility]igned, No [facility] Name [facility] THYROID STIMULATING 2020-05-05 05:18:00 Warren Smith [facility] HORMONE [facility] Branch COMP. METABOLIC PANEL 2020-05-05 05:18:00 Warren Smith [facility] ([id number]) [facility] CBC WITH DIFF 2020-05-05 05:18:00 Warren Smith [facility] URINALYSIS 2020-05-05 04:43:00 Lenard Hamlin [facility] COVID-19 (ID NOW RAPID 2020-05-05 04:43:00 Warren Smith [facility] TESTING) [facility] POCT TEST 2020-05-05 04:42:00 Lenard Hamlin [facility] EKG-12 LEAD 2020-05-05 04:26:59 Lenard Hamlin [facility] NOTICE OF PRIVACY 2020-05-05 04:14:09 Doctor Unassigned, No [facility] PRACTICES Name Medical Branch CONSENT/REFUSAL FOR 2020-05-05 04:13:39 Doctor [facility]assigned, No [facility] [place] [facility] Name Medical Branch Encounters Start End Encounter Admission Attending Care Care Encounter Source Date/Time Date/Time Type Type Clinicians Facility Department ID 2021-08-22 [facility] [id number] Common 12:08:19 Martha [id number] [facility] 2021-08-22 [facility] [id number] Common 12:04:46 Martha [id number] [facility] 2021-08-15 2021-08-15 Emergency X [facility] [id number] Univers 00:29:00 01:56:00 UTYAIMA ity [facility] 2021-08-15 2021-08-15 Emergency [facility] [id number] Univers 00:29:00 01:56:00 Devang MESA [id number] ity [facility] [id number] [facility] [id number] [place] [id number] Branch 2021-08-15 2021-08-15 Skylar Taveras [id number] Univers 00:00:00 00:00:00 (Out) KALLIE [id number] it y [facility] [id number] [facility] [id number] [facility] 019 Branch 2020-07-05 2020-07-05 [facility] [id number] Common 00:00:00 00:00:00 [facility] 2020-06-21 2020-06-21 Outpatient [facility]LC [facility] [id number] Common 00:00:00 00:00:00 [facility] 2020-05-04 2020-05-05 Emergency [facility] [id number] 23:28:00 02:26:00 Warren B [place] [id number] [place] [id number] [place] [id number] 2020-05-04 2020-05-05 Emergency [facility] [id number] [facility] 23:28:00 02:26:00 Warren B [place] [id number] che[place]ly [place] [id number] [facility] [id number] [address] 2020-05-04 2020-05-04 Emergency X [facility] [id number] Univers 23:28:00 23:28:00 WARREN ity of [facility] 2018-03-31 2018-03-31 [facility] [id number] Common 10:30:00 10:30:00 [facility] 2018-01-05 2018-01-05 [facility] [id number] Common 10:00:00 10:00:00 [facility] 2017-12-30 2017-12-30 [facility] [id number] Common 09:30:00 09:30:00 [facility] 2017-12-04 2017-12-04 [facility] [id number] Common 14:37:00 14:37:00 [facility] 2017-10-23 2017-10-23 [facility] [id number] Common 10:15:00 10:15:00 [facility] Results Test Description Test Time Test Comments Results Result Comments Source THYROID STIMULATING HORMONE 2020-05-05 06:28:00 Test Item Value Reference Range Interpretation Comme nts TSH (test code = 8266708985) See_Comment [Automated message] The system which generated this result transmitted ref erence range: 0.45 - 4.70 mIU/L. T he reference range was not used to interpret this result as angelic l/abnormal. Lab Interpretation (test code = Normal 18989-3) [facility]14[facility]2020-05-05 06:00:00 Test Item Value Reference Range Interpretation Comments NA (test code = 138 mmol/L 135-145 8238471815) K (test code = 4.0 mmol/L 3.5-5 0485496653) CL (test code = 101 mmol/L 98-108 6339486747) CO2 TOTAL (test code = 26 mmol/L 23-31 9469982585) AGAP (test code = 2-16 5407541135) BUN (test code = 15 mg/dL 7-23 1119071906) GLUCOSE (test code = 145 mg/dL 70-110 H 1350166739) CREATININE (test code = 1.40 mg/dL 0.5-1.04 H 9633863139) TOTAL BILI (test code = 0.6 mg/dL 0.1-1.6 7871158480) CALCIUM (test code = 9.9 mg/dL 8.6-10.6 7303953135) T PROTEIN (test code = 8.0 g/dL 6.3-8.2 4582826355) ALBUMIN (test code = 4.6 g/dL 3.5-5 9522394866) ALK PHOS (test code = 42 U/L 34-122 4319230699) ALTv (test code = 13 U/L 5-35 1742-6) AST(SGOT) (test code = 22 U/L 13-40 6041167439) eGFR Calculation mL/min/1.73m2 (Non-) (test code = 8870763423) eGFR Calculation mL/min/1.73m2 () (test code = 3858666692) SAE (test code = SAE) Association of [...] tests). Lab Interpretation Abnormal (test code = 58202-0) [facility] (ID NOW RAPID TESTING)2020-05-05 05:43:00 Test Item Value Reference Range Interpretation Comments SARS-CoV-2 Rapid ID NOW Not Detected Not Detected (test code = 33170-4) SAE (test code = SAE) ID NOW COVID-19 Assay is an isothermal nucleic acid amplification test intended for the qualitative detection of nucleic acid from SARS-CoV-2 viral RNA in nasopharyngeal (TELESERVICES REPRESENTATIVE) specimens. It is used under Emergency Use [...] indicated. Lab Interpretation Normal (test code = 09865-5) [facility] 05:36:00 Test Item Value Reference Range Interpretation Comments APPEARANCE (test code = Cloudy Clear A 0865891286) COLOR (test code = Yellow Yellow 0513121309) PH (test code = 4.8-8.0 1477664569) SP GRAVITY (test code = 1.003-1.030 0548031703) GLU U QUAL (test code = Normal Normal 3024567491) BLOOD (test code = 1+ Negative A 5722951143) KETONES (test code = Negative Negative 1572939357) PROTEIN (test code = Negative Negative 2887-8) UROBILIN (test code = Normal Normal 9689837501) BILIRUBIN (test code = Negative Negative 0608136081) NITRITE (test code = Negative Negative 8358136114) LEUK ERROL (test code = 500/uL Negative A 8467539309) RBC/HPF (test code = See_Comment H [Autom ated message] 0137046822) The system [employer] generated this result transmitted ref erence range: 0 - 3 HP F. The reference range was not used to int erpret this result as normal/abnormal . WBC/HPF (test code = See_Comment H [Autom ated message] 0550460045) The system [employer] generated this result transmitted ref erence range: 0 - 5 HP F. The reference range was not used to int erpret this result as normal/abnormal . BACTERIA (test code = Few Negative A 9877789132) SQ EPITH (test code = HPF 2446146316) Lab Interpretation (test Abnormal code = 24487-0) [id number] 05:35:00 Test Item Value Reference Range Interpretation Comments WBC (test code = See_Comment [Automated 4790-2) message] The sy stem which generated this result transmitted reference range : 4.30 - 11.10 10*3/?L. The reference range was not used to interpret this result as normal/abnormal . RBC (test code = See_Comment [Automated 289-8) message] The sy stem which generated this [...] (test code = 38.2 fL 39-49.9 L 03750-5) RDW-CV (test code = 12.3 % 12-15.5 788-0) PLT (test code = See_Comment [Automated 777-3) message] The sy stem which generated this result transmitted reference range : 166 - 358 10*3/ ?L. The reference r joleen was not used to interpret this result as normal/abnormal . MPV (test code = 10.1 fL 9.5-12.9 70954-5) NRBC/100 WBC (test See_Comment [Automat ed code = 8496252314) message] The system which generated this result transmitted reference range : 0.0 - 10.0 /100 WBCs. The refer ence range was not u sed to interpret th is result as normal/abnormal . NRBC x10^3 (test code <0.01 See_Comment [Auto mated = 9541457713) message] The s ystem which generated this result transmitted reference range : 10*3/?L. The reference range was not used to interpret this result as normal/abnormal . GRAN MAT (NEUT) % 57.8 % (test code = 770-8) IMM GRAN % (test code 0.30 % = 8501344148) LYMPH % (test code = 31.5 % 736-9) MONO % (test code = 9.7 % 5905-5) EOS % (test code = 0.3 % 713-8) BASO % (test code = 0.4 % 706-2) GRAN MAT x10^3(ANC) 5.28 10*3/uL 1.88-7.09 (test code = 8399668335) IMM GRAN x10^3 (test 0.03 10*3/uL 0-0.06 code = 0004613682) LYMPH x10^3 (test code 2.88 10*3/uL 1.32-3.29 = 731-0) MONO x10^3 (test code 0.89 10*3/uL 0.33-0.92 = 742-7) EOS x10^3 (test code = 0.03 10*3/uL 0.03-0.39 711-2) BASO x10^3 (test code 0.04 10*3/uL 0.01-0.07 = 704-7) Lab Interpretation Abnormal (test code = 17676-2) [id number] 04:42:00 Test Item Value Reference Range Interpretation Comments POCT PREG (test code = 1605) negative On board controls acceptable with present C Line (test code = 3574) POCT PREG LOT # (test code = 3575) [id number] POCT PREG TEST DATE (test 03/27/2021 code = 3576) Lab Interpretation (test code = Normal 22962-8) [facility]"
--- NOTE | 2022-04-08 18:35 | EDPHYS ---
Physician Documentation [facility] Name: Yasmin Velez Age: 21 yrs Sex: Female : 2000 Arrival Date: 04/08/2022 Time: 16:41 Bed 23 Private MD: JAY Physician Derrell Coronado HPI: 04/08 17:05 This 21 yrs old Female presents to ER via Ambulatory with complaints of Sore Throat. cp 17:05 The patient presents with sore throat. The patient describes throat pain as constant. cp Onset: The symptoms/episode began/occurred this morning. Associated signs and symptoms: Pertinent positives: cough, fever, body aches, Pertinent negatives diarrhea, vomiting. 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 - Social history:: Smoking status: Patient denies any tobacco usage or history of. ROS: 17:10 Constitutional: Positive for body aches, Negative for fever, poor PO intake. cp 17:10 Eyes: Negative for injury, pain, redness, and discharge. cp 17:10 ENT: Positive for sore throat, Negative for drainage from ear(s), ear pain, difficulty swallowing, difficulty handling secretions. 17:10 Neck: Negative for pain with movement, pain at rest, stiffness. 17:10 Cardiovascular: Negative for chest pain. 17:10 Respiratory: Positive for cough, with no reported sputum, Negative for shortness of breath, wheezing. 17:10 Abdomen/GI: Negative for abdominal pain, vomiting, diarrhea, constipation. 17:10 Skin: Negative for rash. 17:10 Neuro: Negative for altered mental status, headache, weakness. 17:10 All other systems are negative. Exam: 17:15 Constitutional: The patient appears in no acute distress, alert, awake, comfortable, cp non-toxic, well developed, well nourished. 17:15 Head/Face: Normocephalic, atraumatic. cp 17:15 Eyes: Periorbital structures: appear normal, Conjunctiva: normal, no exudate, no injection, Sclera: no appreciated abnormality, Lids and lashes: appear normal, bilaterally. 17:15 ENT: External ear(s): are unremarkable, Ear canal(s): are normal, clear, TM's: dullness, bilaterally, Nose: is normal, Mouth: Lips: moist, Oral mucosa: moist, Posterior pharynx: Airway: no evidence of obstruction, patent, Tonsils: with erythema, no enlargement, no exudate, swelling, is not appreciated, erythema, that is mild, exudate, is not appreciated. 17:15 Neck: ROM/movement: is normal, is supple, no meningismus, no nuchal rigidity, Lymph nodes: lymphadenopathy is appreciated, anterior cervical nodes. 17:15 Chest/axilla: Inspection: normal. 17:15 Cardiovascular: Rate: normal. 17:15 Respiratory: the patient does not display signs of respiratory distress, Respirations: normal, no use of accessory muscles, no retractions, labored breathing, is not present, Breath sounds: are clear throughout, no decreased breath sounds, no stridor, no wheezing. 17:15 Abdomen/GI: Exam negative for discomfort, distension, guarding, Inspection: abdomen appears normal. Vital Signs: 16:57 BP 103 / 68; Pulse 80; Resp 16; Temp 98.2(O); Pulse Ox 100% on R/A; bm7 18:29 BP 122 / 74; Pulse 72; Resp 16; Pulse Ox 100% on R/A; bm7 MDM: 16:56 Patient medically screened. 18:35 Data reviewed: vital signs, nurses notes, lab test result(s). 04/08 17:01 Order name: Strep; Complete Time: 17:59 04/08 17:59 Interpretation: Reviewed. 04/08 17:01 Order name: COVID-19 SARS RT PCR (Document "Date of Onset" if Symptomatic); Complete cp Time: 18:33 04/08 18:33 Interpretation: Reviewed. 04/08 17:01 Order name: Influenza Screen (a \\T\\ B); Complete Time: 17:59 04/08 17:59 Interpretation: Reviewed. 04/08 17:35 Order name: Throat Culture EDMS Administered Medications: No medications were administered Disposition Summary: 09/12/22 18:35 Discharge Ordered Location: Home cp Problem: new cp Symptoms: are unchanged cp Condition: Stable cp Diagnosis - Acute pharyngitis, unspecified cp - SARS-associated coronavirus as the cause of diseases classified elsewhere cp Followup: cp - With: Private Physician - When: 2 - 3 days - Reason: Worsening of condition Discharge Instructions: - Discharge Summary Sheet cp - Sore Throat cp - COVID-19 cp - COVID-19: What Your Test Results Mean - [facility] cp - Things to Know about the COVID-19 Pandemic - [facility] cp - 10 Things You Can Do to Manage Your COVID-19 Symptoms at Home - [facility] cp - COVID-19: Quarantine vs. Isolation - [facility] cp - Prevent the Spread of COVID-19 if You Are Sick - [facility] cp Forms: - Medication Reconciliation Form cp - Thank You Letter cp - Antibiotic Education cp - Prescription Opioid Use cp Prescriptions: - Lidocaine Viscous - take 5 milliliter by ORAL route every 4-6 hours; 1 bottle; Refills: 0, Product cp Selection Permitted Signatures: Dispatcher [employer] EDMS Derrell Locke PA PA cp McCarthy, Brittany, RN RN bm7
--- NOTE | 2022-04-08 18:35 | ER ---
Nurse's Notes [facility] [place], [place] Name: Yasmin Velez Age: 21 yrs Sex: Female : 2000 Arrival Date: 04/08/2022 Time: 16:41 Bed 23 Private MD: Diagnosis: Acute pharyngitis, unspecified;SARS-associated coronavirus as the cause of diseases classified elsewhere Presentation: 04/08 16:57 Chief complaint: Patient states: On Friday I started having fever and body aches and bm7 this morning I woke up and felt like my throat was getting tight. Coronavirus screen: Client presents with at least one sign or symptom that may indicate coronavirus-19. Standard/surgical mask placed on the client. Ebola Screen: No symptoms or risks identified at this time. Initial Sepsis Screen: Does the patient meet any 2 criteria? No. Patient's initial sepsis screen is negative. Does the patient have a suspected source of infection? No. Patient's initial sepsis screen is negative. Risk Assessment: Do you want to hurt yourself or someone else? Patient reports no desire to harm self or others. Onset of symptoms was March 2022. Care prior to arrival: None. 16:57 Method Of Arrival: Ambulatory bm7 16:57 Acuity: JIL 4 bm7 Triage Assessment: 16:59 General: Appears in no apparent distress. comfortable, Behavior is calm, cooperative, bm7 appropriate for age. Pain: Complains of pain in throat. EENT: Throat is reddened. Neuro: No deficits noted. Cardiovascular: No deficits noted. Respiratory: No deficits noted. GI: No deficits noted. No signs and/or symptoms were reported involving the gastrointestinal system. : No deficits noted. No signs and/or symptoms were reported regarding the genitourinary system. Derm: No deficits noted. No signs and/or symptoms reported regarding the dermatologic system. Musculoskeletal: No deficits noted. No signs and/or symptoms reported regarding the musculoskeletal system. 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 - Social history:: Smoking status: Patient denies any tobacco usage or history of. Screenin:00 Abuse screen: Denies threats or abuse. Nutritional screening: No deficits noted. bm7 Tuberculosis screening: No symptoms or risk factors identified. Fall Risk None identified. Assessment: 17:00 Reassessment: No changes from previously documented assessment. bm7 17:34 Reassessment: No changes from previously documented assessment. Patient and/or family bm7 updated on plan of care and expected duration. Pain level reassessed. Patient is alert, oriented x 3, equal unlabored respirations, skin warm/dry/pink. 18:22 Respiratory: Airway is patent Respiratory effort is even, unlabored, Respiratory bm7 pattern is regular, symmetrical, Breath sounds are clear bilaterally. Vital Signs: 16:57 BP 103 / 68; Pulse 80; Resp 16; Temp 98.2(O); Pulse Ox 100% on R/A; bm7 18:29 BP 122 / 74; Pulse 72; Resp 16; Pulse Ox 100% on R/A; bm7 ED Course: 16:41 Patient arrived in ED. am2 16:43 Derrell Locke PA is PHCP. cp 16:43 Derrell Coronado MD is Attending Physician. cp 16:43 Kp Gustafson PA is PHCP. jmm 16:44 Derrell Locke PA is PHCP. [facility] 16:52 Johanny De La Cruz, RN is Primary Nurse. bm7 16:59 Triage completed. bm7 16:59 Arm band placed on right wrist. bm7 17:00 Patient has correct armband on for positive identification. Call light in reach. Side bm7 rails up X 1. Client placed on continuous cardiac and pulse oximetry monitoring. NIBP monitoring applied. 17:00 No provider procedures requiring assistance completed. Patient maintains SpO2 bm7 saturation greater than 95% on room air. 17:34 No apparent distress. Resting quietly. Awaiting lab results. bm7 18:29 Patient did not have IV access during this emergency room visit. bm7 Administered Medications: No medications were administered Medication: 17:00 VIS not applicable for this client. bm7 Outcome: 18:35 Discharge ordered by . cp 18:39 Discharged to home ambulatory. bm7 18:39 Condition: good 18:39 Discharge instructions given to patient, Instructed on discharge instructions, follow up and referral plans. medication usage, Demonstrated understanding of instructions, follow-up care, medications, Prescriptions given X 1. 18:40 Patient left the ED. bm7 Signatures: Kp Gustafson PA PA jmm Page, Corey, PA PA cp Moreno, Amanda am2 Johanny De La Cruz, RN RN bm7
[2022-04-08 20:10] VITALS: TEMP 98.2; O2SAT 100
[2022-04-08 20:13] VITALS: BP 122/74
== END 2022-04-08 18:40 | disposition home or self-care (01) ==
LOC: ER 16:40
DX: U07.1 COVID-19 (principal)
CPT/HCPCS: 87070; 87081; 87804; 99284; U0003

== ENCOUNTER 2024-04-13 10:31 | Emergency (ER) | payer SELFPAY ==
--- OUTSIDE RECORDS SUMMARY | 2024-04-13 10:35 | XMS REPORT | Continuity of Care Document ---
Author Name Unknown Address [address] [facility] [address] [place] [address] [facility] thconnect Address [address] [facility] [address] [place] [address] Care Team Providers Care Oil Well Directional Surveyor Name Role Phone PCP, PATIENT DOES NOT HAVE A Primary Care Physic radha Unavailable Martha Hooper Attending Clinician Unavailable DEVANG LR Attending Clinician Unavailable Devang Lr MD Attending Clinician [phone] Skylar Parekh RN Attending Clinician Unavailable Warren Bloom Attending Clinician WARREN SMITH Attending Clinician Unavailable Problems Condition Name Condition Details Condition Category Status Onset Date Resolution Date Last Treatment Date Treating Clinician Comments Source No known active problems No known active problems Disease [facility] [id number] Irregular menstrual cycle Problem Active [facility] [id number] Palpitatio ns Problem Active [facility] Allergies, Adverse Reactions, Alerts Allergy Name Allergy Type Status Severity Reaction(s) Onset Date Inactive Date Treating Clinician Comments Source NO KNOWN ALLERGIE S Drug Class Active [facility] Social History Social Habit Start Date Stop Date Quantity Comments Source Exposure to SARS-CoV-2 (event) Not sure [facility] History of Tobacco Use [facility] Sex Assigned At [facility] Smoking Status Start Date Stop Date Source Never Smoker [facility] Unknown if ever smoked [facility] Medications Ordered Medication Name Filled Medication Name Start Date Stop Date Current Medication? Ordering Clinician Indication Dosage Frequency Signature (SIG) Comments Components Source amoxicillin (TRIMOX) capsule 500 mg 08-15 09:00: 00 08-15 07:51 :00 No 500mg 500 mg, Oral, ONCE, 1 dose, On Fri08/15/21 at 0300, ROLAND
Re ason for Anti-Infec tive: Documented Infection< br>Documen iván Infection Site: HEENT
D uration of Therapy: Other (see Comments) [facility] amoxicillin 500 mg capsule 08-15 00:00: 00 Yes [id number] 500mg Take 1 capsule by mouth 3 (three) times daily. [facility] ibuprofen 800 mg tablet 08-15 00:00: 00 Yes [id number] 800mg Take 1 tablet by mouth every 8 (eight) hours as needed for Pain (scale 4-6) or Temp > 38.5 C. [facility] NaCl 0.9% (NS) bolus infusion 1,000 mL 2019-07 04:45: 00 05-05 06:50 :00 No 1000mL at 999 mL/hr, 1,000 mL, IV Infusion, ONCE, 1 dose, [facility] 05/04/20 at 2345, ROLAND [facility] Sprintec 28 Sprintec 28 03-31 00:00: 00 Yes Christina Mota 1 tablet [facility] Sprintec 28 0.25-35 MG-MCG Sprintec 28 0.25-35 MG-MCG 03-31 00:00: 00 No 1{table t} QD Sprintec 28 0.25-35 MG-MCG Sprintec 28 0.25-35 MG-MCG Sprintec 28 0.25-35 MG-MCG 03-31 00:00: 00 No 1{table t} QD Sprintec 28 0.25-35 MG-MCG medroxyprog esterone ac medroxyprog esterone ac 01-05 00:00: 00 No 150mg [facility] medroxyprog esterone ac medroxyprog esterone ac 12-30 00:00: 00 No 150mg [facility] Multivitami n Multivitami n No Multivitam in Multivitami n Multivitami n No Multivitam in No known medications No Un josefina [facility] Vital Signs Vital Name Observation Time Observation Value Comments S ource Heart rate 2021-08-15 06:21:00 99 /min [facility] Body temperature 2021-08-15 06:21:[address] [facility] Respiratory rate 2021-08-15 06:21:00 18 /min [facility] Body height 2021-08-15 06:21:00 167.6 cm [facility] Body weight 2021-08-15 06:21:00 54.432 kg [facility] BMI 2021-08-15 06:21:00 19.37 kg/m2 [facility] Oxygen saturation in Arterial blood by Pulse oximetry 2021-08-15 06:21:00 98 /min [facility] Systolic blood pressure 2021-08-15 06:21:00 116 mm[Hg] [facility] Diastolic blood pressure 2021-08-15 06:21:00 69 mm[Hg] [facility] height 2020-07-05 11:20:00 66 [in_i] Commo n [facility] weight 2020-07-05 11:20:00 108 [lb_av] Comm on [facility] temperature 2020-07-05 11:20:00 97.0 [degF] Com mon [facility] bmi 2020-07-05 11:20:00 17.43 kg/m2 Comm on [facility] oximetry 2020-07-05 11:20:00 96 % Commo n [facility] respiratory rate 2020-07-05 11:20:00 16 /min [facility] blood pressure systolic 2020-07-05 11:20:00 110 mm[Hg] [facility] blood pressure diastolic 2020-07-05 11:20:00 63 mm[Hg] [facility] height 2020-06-21 14:00:00 66 [in_i] Commo n [facility] weight 2020-06-21 14:00:00 107.4 [lb_av] Co mmon [facility] temperature 2020-06-21 14:00:00 97.1 [degF] Com mon [facility] bmi 2020-06-21 14:00:00 17.33 kg/m2 Comm on [facility] oximetry 2020-06-21 14:00:00 98 % Commo n [facility] respiratory rate 2020-06-21 14:00:00 16 /min [facility] blood pressure systolic 2020-06-21 14:00:00 108 mm[Hg] [facility] blood pressure diastolic 2020-06-21 14:00:00 61 mm[Hg] [facility] Systolic blood pressure 2020-05-05 05:44:00 113 mm[Hg] [facility] Diastolic blood pressure 2020-05-05 05:44:00 71 mm[Hg] [facility] Heart rate 2020-05-05 05:44:00 88 /min [facility] Respiratory rate 2020-05-05 05:44:00 22 /min [facility] Oxygen saturation in Arterial blood by Pulse oximetry 2020-05-05 05:44:00 98 /min [facility] Body temperature 2020-05-05 04:21:[address] [facility] Body height 2020-05-05 04:21:00 165.1 cm [facility] Body weight 2020-05-05 04:21:00 50.803 kg [facility] BMI 2020-05-05 04:21:00 18.64 kg/m2 [facility] Systolic blood pressure 2020-05-05 05:44:00 113 mm[Hg] [facility] Diastolic blood pressure 2020-05-05 05:44:00 71 mm[Hg] [facility] Heart rate 2020-05-05 05:44:00 88 /min [facility] Respiratory rate 2020-05-05 05:44:00 22 /min [facility] Oxygen saturation in Arterial blood by Pulse oximetry 2020-05-05 05:44:00 98 /min [facility] Body temperature 2020-05-05 04:21:[address] [facility] Body height 2020-05-05 04:21:00 165.1 cm [facility] Body weight 2020-05-05 04:21:00 50.803 kg [facility] BMI 2020-05-05 04:21:00 18.64 kg/m2 [facility] Procedures Procedure Date / Time Performed Performing Clinician Source RAPID STREP SCREEN FOR GROUP A 2021-08-15 06:27:[address] [facility] NOTICE OF PRIVACY PRACTICES 2021-08-15 06:12:48 Doctor Unassigned, [place] [facility] CONSENT/REFUSAL FOR DIAGNOSIS AND TREATMENT 2021-08-15 06:11:53 Doctor Unassigned, [place] [facility] CONSENT/REFUSAL FOR DIAGNOSIS AND TREATMENT 2021-08-15 06:11:52 Doctor Unassigned, [place] [facility] THYROID STIMULATING HORMONE 2020-05-05 05:18:[address] [facility] COMP. METABOLIC PANEL (28008) 2020-05-05 05:18:[address] [facility] CBC WITH DIFF 2020-05-05 05:18:00 Warren Smith [facility] URINALYSIS 2020-05-05 04:43:00 Lenard Hamlin [facility] COVID-19 (ID NOW RAPID TESTING) 2020-05-05 04:43:[address] [facility] POCT TEST 2020-05-05 04:42:[address] [facility] EKG-12 LEAD 2020-05-05 04:26:59 Lenard Hamlin [facility] NOTICE OF PRIVACY PRACTICES 2020-05-05 04:14:09 Doctor Unassigned, [place] [facility] CONSENT/REFUSAL FOR DIAGNOSIS AND TREATMENT 2020-05-05 04:13:39 Doctor Unassigned, [place] [facility] Encounters Start Date/Time End Date/Time Encounter Type Admission Type Attending [facility] Care Facility Care Department Encounter ID Source 2023-01-10 08:50:00 Outpatient Martha Hooper [facility] [id number] [facility] 2023-01-07 13:34:00 Outpatient Martha Hooper [facility] [id number] [facility] 2021-08-22 12:08:19 Outpatient Martha Hooper [facility] [id number] [facility] 2021-08-22 12:04:46 Outpatient Martha Hooper [facility] [id number] [facility] 2023-01-07 00:00:00 2023-01-07 00:00:00 (TEL) [facility] [id number] [facility] 2021-08-15 00:29:00 2021-08-15 01:56:00 Emergency X DEVANG LR [facility] ERT [id number] [facility] 2021-08-15 00:29:00 2021-08-15 01:56:00 Emergency Devang Lr [facility] [id number] [facility] 2021-08-15 00:00:00 2021-08-15 00:00:00 Letter (Out) Skylar Parekh [facility] [id number] [facility] 2020-07-05 00:00:00 2020-07-05 00:00:00 OFFICE VISIT EST PT LEVEL 3 [facility] [id number] [facility] 2020-06-21 00:00:00 2020-06-21 00:00:00 OFFICE VISIT NEW PT LEVEL 3 [facility] [id number] [facility] 2020-05-04 23:28:00 2020-05-05 02:26:00 Emergency Warren Smith B [facility] [id number] 2020-05-04 23:28:00 2020-05-05 02:26:00 Emergency LuisWarren sarabia B [facility] [id number] [facility] 2020-05-04 23:28:00 2020-05-04 23:28:00 Emergency X WARREN SMITH [facility] ERT [id number] [facility] 2018-03-31 10:30:00 2018-03-31 10:30:00 Outpatient [facility] [id number] [facility] 2018-01-05 10:00:00 2018-01-05 10:00:00 [facility]patient [facility] [id number] [facility] 2017-12-30 09:30:00 2017-12-30 09:30:00 Outpatient [facility] [id number] [facility] 2017-12-04 14:37:00 2017-12-04 14:37:00 Outpatient [facility] [id number] [facility] 2017-10-23 10:15:00 2017-10-23 10:15:00 Outpatient [facility] [id number] [facility] Results Test Description Test Time Test Comments Results Result Co mments Source [facility] (05098)2020-05-05 06:00:00* Test Item Value Reference Range Interpretation Comme nts NA (test code = 6855954176) 138 mmol/L 135-145 K (test code = 6239349175) 4.0 mmol/L 3.5-5 CL (test code = 9144621845) 101 mmol/L 98-108 CO2 TOTAL (test code = 4673430393) 26 mmol/L 23-31 AGAP (test code = 7858138369) 2-16 BUN (test code = 9760242145) 15 mg/dL 7-23 GLUCOSE (test code = 0976375225) 145 mg/dL 70-110 H CREATININE (test code = 8044559619) 1.40 mg/dL 0.5-1.04 H TOTAL BILI (test code = 1090457347) 0.6 mg/dL 0.1-1.1 CALCIUM (test code = 7998602030) 9.9 mg/dL 8.6-10.6 T PROTEIN (test code = 0555043443) 8.0 g/dL 6.3-8.2 ALBUMIN (test code = 2375684654) 4.6 g/dL 3.5-5 ALK PHOS (test code = 8629763328) 42 U/L 34-122 ALTv (test code = 1742-6) 13 U/L 5-35 AST(SGOT) (test code = 9757591196) 22 U/L 13-40 eGFR Calculation (Non-) (test code = 6052893748) mL/min/1.73m2 eGFR Calculation () (test code = 7246848135) mL/min/1.73m2 SAE (test code = SAE) Association of [...] or abnormalities in imaging tests). Lab Interpretation (test code = 40917-7) Abnormal [facility] (ID NOW RAPID TESTING)2020-05-05 05:43:00* Test Item Value Reference Range Interpretation Comme nts SARS-CoV-2 Rapid ID NOW (test code = 04693-9) Not Detected Not Detected SAE (test code = SAE) ID NOW COVID-19 As say is an isothermal nucleic acid amplification test intended for the qualitative detection of nucleic acid from SARS-CoV-2 viral RNA in nasopharyngeal (MARINE SERVICES TECHNICIAN) specimens. It is used under Emergency Use [...] patient testing if clinically indicated. Lab Interpretation (test code = 67784-3) Normal [facility]2020-10-09 05:36:00* Test Item Value Reference Range Interpretation Comme nts APPEARANCE (test code = 3640518243) Cloudy Clear A COLOR (test code = 1565277196) Yellow Yellow PH (test code = 9614342299) 4.8-8.0 SP GRAVITY (test code = 4529439223) 1.003-1.030 GLU U QUAL (test code = 2389217974) Normal Normal BLOOD (test code = 0092603699) 1+ Negative A KETONES (test code = 0499690240) Negative Negative PROTEIN (test code = 2887-8) Negative Negative UROBILIN (test code = 1514858337) Normal Normal BILIRUBIN (test code = 6187452971) Negative Negative NITRITE (test code = 3949849562) Negative Negative LEUK ERROL (test code = 0557779749) 500/uL Negative A RBC/HPF (test code = 3425961106) See_Comment H [Automated messa ge] The system which generated this result transmitted reference range: 0 - 3 HPF. The reference range was not used to interpret this result as normal/abnormal. WBC/HPF (test code = 9240680512) See_Comment H [Automated messa ge] The system which generated this result transmitted reference range: 0 - 5 HPF. The reference range was not used to interpret this result as normal/abnormal. BACTERIA (test code = 0485118447) Few Negative A SQ EPITH (test code = 7897232315) HPF Lab Interpretation (test code = 02398-2) Abnormal [facility] with [id number] 05:35:00* Test Item Value Reference Range Interpretation Comme nts WBC (test code = 6690-2) See_Comment [Automated messa ge] The system which generated this result transmitted reference range: 4.30 - 11.10 10*3/?L. The reference range was not used to interpret this result as normal/abnormal. RBC (test code = 789-8) See_Comment [Automated messa ge] The system which generated this result transmitted reference range: 3.93 - 5.25 10*6/?L. The reference range was not used to interpret this result as normal/abnormal. HGB (test code = 718-7) 14.4 g/dL 11.6-15 HCT (test code = 4544-3) 41.8 % 35.7-45.2 MCV (test code = 787-2) 85.8 fL 80.6-95.5 MCH (test code = 785-6) 29.6 pg 25.9-32.8 MCHC (test code = 786-4) 34.4 g/dL 31.6-35.1 RDW-SD (test code = 11538-3) 38.2 fL 39-49.9 L RDW-CV (test code = 788-0) 12.3 % 12-15.5 PLT (test code = 777-3) See_Comment [Automated CHOOMOGOa ge] The system which generated this result transmitted reference range: 166 - 358 10*3/?L. The reference range was not used to interpret this result as normal/abnormal. MPV (test code = 60365-5) 10.1 fL 9.5-12.9 NRBC/100 WBC (test code = 1137685713) See_Comment [Automated [employer] ssage] The system which generated this result transmitted reference range: 0.0 - 10.0 /100 WBCs. The reference range was not used to interpret this result as normal/abnormal. NRBC x10^3 (test code = 3351239029) <0.01 See_Comment [Automated CHOOMOGOa ge] The system which generated this result transmitted reference range: 10*3/?L. The reference range was not used to interpret this result as normal/abnormal. GRAN MAT (NEUT) % (test code = 770-8) 57.8 % IMM GRAN % (test code = 7910486107) 0.30 % LYMPH % (test code = 736-9) 31.5 % MONO % (test code = 5905-5) 9.7 % EOS % (test code = 713-8) 0.3 % BASO % (test code = 706-2) 0.4 % GRAN MAT x10^3(ANC) (test code = 8195463098) 5.28 10*3/uL 1.88-7.09 IMM GRAN x10^3 (test code = 9075077709) 0.03 10*3/uL 0-0.06 LYMPH x10^3 (test code = 731-0) 2.88 10*3/uL 1.32-3.29 MONO x10^3 (test code = 742-7) 0.89 10*3/uL 0.33-0.92 EOS x10^3 (test code = 711-2) 0.03 10*3/uL 0.03-0.39 BASO x10^3 (test code = 704-7) 0.04 10*3/uL 0.01-0.07 Lab Interpretation (test code = 28685-3) [facility]normal [facility] [id number] 04:42:00* Test Item Value Reference Range Interpretation Comme nts POCT PREG (test code = 1605) negative On board controls acceptable with C Line (test code = 3574) present POCT PREG LOT # (test code = 3575) [id number] POCT PREG TEST DATE ( test code = 3576) 03/27/2021 Lab Interpretation (test cod e = 06993-0) Normal [facility]regnancy [facility], UrinePregnancy Test, UrineRequest Problem"
[2024-04-13 11:30] LABS: Specific Gravity < 1.005 (1.005-1.030); Urine Bacteria >50 /HPF (<20); Urine Bilirubin NEGATIVE (Negative); Urine Blood 1+ (Negative); Urine Clarity Extremely Turbid (Clear); Urine Color Colorless (Yellow); Urine Culture Reflex Order REFLEXED; Urine Glucose NEGATIVE (Negative); Urine Ketones NEGATIVE (Negative); Urine Micro Reflex YN NO BILL MICROSCOPIC; Urine Nitrite NEGATIVE (Negative); Urine Protein NEGATIVE (Negative); Urine Urobilinogen Normal (Normal); Urine WBC 20-50 /HPF (<5); Urine pH 6.5 (5.0-7.0)
--- NOTE | 2024-04-13 11:50 | ER ---
Nurse's Notes [facility] Name: Yasmin Velez Age: 23 yrs Sex: Female : 2000 Arrival Date: 04/13/2024 Time: 10:31 Bed 19 Private MD: Diagnosis: UTI/ Urinary tract infection, site not specified Presentation: 04/13 10:42 Chief complaint: Patient states: Dysuria for 2 days. Had a positive test 4 ll1 days ago. G1, P0. Coronavirus screen: Client denies travel out of the [place] in the last 14 days. At this time, the client does not indicate any symptoms associated with coronavirus-19. Ebola Screen: Patient denies travel to an Ebola-affected area in the 21 days before illness onset. Initial Sepsis Screen: Does the patient meet any 2 criteria? No. Patient's initial sepsis screen is negative. Does the patient have a suspected source of infection? No. Patient's initial sepsis screen is negative. Risk Assessment: Do you want to hurt yourself or someone else? Patient reports no desire to harm self or others. Onset of symptoms was April 12, 2024. 10:42 Method Of Arrival: Ambulatory ll1 10:42 Acuity: JIL 4 ll1 Triage Assessment: 10:44 General: Appears in no apparent distress. Behavior is calm, cooperative, appropriate ll1 for age. General: Reports positive test 4 days ago. G1, P0. Pain: Denies pain. : Reports pain with urination. 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 - Infectious Disease History:: Denies. - Social history:: Smoking status: Patient denies any tobacco usage or history of. Screenin:29 [facility] ED Fall Risk Assessment (Adult) History of falling in the last 3 months, ph including since admission No falls in past 3 months (0 pts) Confusion or Disorientation No (0 pts) Intoxicated or Sedated No (0 pts) Impaired Gait No (0 pts) Mobility Assist Device Used No (0 pt) Altered Elimination No (0 pt) Score/Fall Risk Level 0 - 2 = Low Risk Oriented to surroundings, Maintained a safe environment, Hourly rounding (assess needs \T\ fall precautionary measures) done. Abuse screen: Denies threats or abuse. Denies injuries from another. Nutritional screening: No deficits noted. Tuberculosis screening: No symptoms or risk factors identified. Assessment: 11:28 General: Appears in no apparent distress. Behavior is calm, cooperative. Pain: Denies ph pain. Neuro: Level of Consciousness is awake, alert, obeys commands, Oriented to person, place, time, situation. Respiratory: Airway is patent Respiratory effort is even, unlabored. GI: No signs and/or symptoms were reported involving the gastrointestinal system. : Reports burning with urination, urinary frequency. Vital Signs: 10:42 BP 107 / 71; Pulse 76; Resp 17; Temp 97.5; Pulse Ox 99% on R/A; Weight 50.8 kg; Height ll1 5 ft. 6 in. ; Pain 0/10; 12:08 BP 102 / 72; Pulse 74; Resp 16; Temp 98.1; Pulse Ox 100% ; ph 10:42 Body Mass Index 18.08 (50.80 kg, 167.64 cm) ll1 10:42 Pain Scale: Adult ll1 ED Course: 10:34 Patient arrived in ED. mr 10:35 Silas Younger MD is Attending Physician. rt 10:35 Arm band placed on Patient placed in an exam room, on a stretcher. ll1 10:43 Raquel Santana, ERICA is Primary Nurse. ph 10:43 Triage completed. ll1 11:29 Patient has correct armband on for positive identification. Bed in low position. Call ph light in reach. Pulse ox on. NIBP on. Door closed. Noise minimized. Warm blanket given. 11:29 No provider procedures requiring assistance completed. Urine collected: clean catch ph specimen. Patient did not have IV access during this emergency room visit. 12:08 Provided Education on: POC. Verbalized understanding. . ph Administered Medications: No medications were administered Medication: 11:29 VIS not applicable for this client. ph Outcome: 11:50 Discharge ordered by . rt 12:08 Discharged to home ambulatory, ph 12:08 Condition: stable 12:08 Discharge instructions given to patient, Instructed on discharge instructions, follow up and referral plans. medication usage, Demonstrated understanding of instructions, follow-up care, medications, Prescriptions given X 1, 12:09 Patient left the ED. ph Signatures: Cintia Amezcua, Reg Reg mr Raquel Santana, RN RN ph Miguel A Koch RN RN ll1 Silas Younger MD MD rt
--- NOTE | 2024-04-13 11:50 | EDPHYS ---
Physician Documentation [facility] Name: Yasmin Velez Age: 23 yrs Sex: Female : 2000 Arrival Date: 04/13/2024 Time: 10:31 Bed 19 Private MD: ED Physician Silas Younger HPI: 04/13 10:47 This 23 yrs old Female presents to ER via Ambulatory with complaints of , rt Urinary Problem. 10:47 Patient states that she took a positive home test about 4 days ago, has an rt appointment on for checkup. She reports having dysuria starting today. Denies hematuria, vaginal bleeding. Reports some nausea but denies abdominal pain. Symptoms are mild in severity, no other aggravating or alleviating factors.. 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 - Infectious Disease History:: Denies. - Social history:: Smoking status: Patient denies any tobacco usage or history of. ROS: 10:47 Constitutional: Negative for fever, chills, and weight loss, Cardiovascular: Negative rt for chest pain, palpitations, and edema, Respiratory: Negative for shortness of breath, cough, wheezing, and pleuritic chest pain, MS/Extremity: Negative for injury and deformity, Skin: Negative for injury, rash, and discoloration, 10:47 Abdomen/GI: Positive for nausea, Negative for abdominal pain, 10:47 : Positive for burning with urination, Negative for vaginal bleeding, Exam: 10:47 Constitutional: This is a well developed, well nourished patient who is awake, alert, rt and in no acute distress. Head/Face: Normocephalic, atraumatic. Chest/axilla: Normal chest wall appearance and motion. Nontender with no deformity. No lesions are appreciated. Cardiovascular: Regular rate and rhythm with a normal S1 and S2. No gallops, murmurs, or rubs. Normal PMI, no JVD. No pulse deficits. Respiratory: Lungs have equal breath sounds bilaterally, clear to auscultation and percussion. No rales, rhonchi or wheezes noted. No increased work of breathing, no retractions or nasal flaring. Abdomen/GI: Soft, non-tender, with normal bowel sounds. No distension or tympany. No guarding or rebound. No evidence of tenderness throughout. Skin: Warm, dry with normal turgor. Normal color with no rashes, no lesions, and no evidence of cellulitis. MS/ Extremity: Pulses equal, no cyanosis. Neurovascular intact. Full, normal range of motion. Vital Signs: 10:42 BP 107 / 71; Pulse 76; Resp 17; Temp 97.5; Pulse Ox 99% on R/A; Weight 50.8 kg; Height ll1 5 ft. 6 in. ; Pain 0/10; 12:08 BP 102 / 72; Pulse 74; Resp 16; Temp 98.1; Pulse Ox 100% ; ph 10:42 Body Mass Index 18.08 (50.80 kg, 167.64 cm) ll1 10:42 Pain Scale: Adult ll1 MDM: 10:41 Patient medically screened. rt 12:10 Differential Diagnosis UTI, first trimester UTI, first trimester . rt Data reviewed: vital signs, nurses notes, lab test result(s). Test considered but Not performed: Ultrasound No vaginal bleeding, ultrasound not emergently indicated. Counseling: I had a detailed discussion with the patient and/or guardian regarding the historical points, exam findings, and any diagnostic results supporting the discharge/admit diagnosis, lab results, the need for outpatient follow up. Response to treatment: the patient's symptoms have markedly improved after treatment. 04/13 10:45 Order name: UAM; Complete Time: 11:40 rt 04/13 11:33 Order name: Urine Culture EDMS Administered Medications: No medications were administered Disposition Summary: 04/13/24 11:50 Discharge Ordered Notes: Location: Home rt Problem: new rt Symptoms: are unchanged rt Condition: Stable rt Diagnosis - UTI/ Urinary tract infection, site not specified rt Followup: rt - With: Private Physician - When: 2 - 3 days - Reason: Discharge Instructions: - Discharge Summary Sheet rt - Urinary Tract Infection, Adult rt Forms: - School release form ph - Medication Reconciliation Form rt - Antibiotic Education rt - Prescription Opioid Use rt - Patient Portal Instructions rt - Leadership Thank You Letter rt Prescriptions: - cefpodoxime 200 mg Oral tablet - take 1 tablet ORAL route every 12 hours with food; 14 tablet; Refills: 0, rt Product Selection Permitted Signatures: Dispatcher [employer] Raquel Castellanos RN RN [facility] A RN RN ll1 Silas Younger MD MD rt
[2024-04-13 12:14] VITALS: BP 102/72; TEMP 98.1; O2SAT 100
== END 2024-04-13 12:09 | disposition home or self-care (01) ==
LOC: ER 10:31
DX: N39.0 Urinary tract infection, site not specified (principal)
CPT/HCPCS: 81001; 87086; 87088; 99284

== ENCOUNTER 2024-05-04 12:03 | Emergency (ER) | payer OTHER ==
--- OUTSIDE RECORDS SUMMARY | 2024-05-04 12:05 | XMS REPORT | Continuity of Care Document ---
Author Name Unknown Address [address] [place] [address] [facility] thconnect Address [address] [place] [address] Care Team Providers Care Director Of Land Acquisition Name Role Phone Kelly Townsend Primary Care Physician Martha Hooper Attending Clinician Unavailable DEVANG LR Attending Clinician Unavailable Devang Lr MD Attending Clinician Skylar Parekh RN Attending Clinician Unavailable Warren Bloom Attending Clinician [phone] WARREN SMITH Attending Clinician Unavailable Problems Condition Name Condition Details Condition Category Status Onset Date Resolution Date Last Treatment Date Treating Clinician Comments Source No known active problems No known active problems Disease [facility] [id number] Irregular menstrual cycle Problem Active [facility] [id number] Palpitatio ns Problem Active [facility] Allergies, Adverse Reactions, Alerts Allergy Name Allergy Type Status Severity Reaction(s) Onset Date Inactive Date Treating Clinician Comments Source NO KNOWN ALLERGIE S Drug Class Active [facility] Social History Social Habit Start Date Stop Date Quantity Comments Source Exposure to SARS-CoV-2 (event) Not sure [facility] History of Tobacco Use [facility] Sex Assigned At [facility] Smoking Status Start Date Stop Date Source Never Smoker [facility] Unknown if ever smoked Unive [facility] Medications Ordered Medication Name Filled Medication Name Start Date Stop Date Current Medication? Ordering Clinician Indication Dosage Frequency Signature (SIG) Comments Components Source promethazin e 12.5 mg tablet 04-15 00:00: 00 Yes 1mg Ruben Avitia TAKE 2 TABLETS BY MOUTH ONE TIME 04-08 00:00: 00 Yes Ruben Avitia TAKE 1 CAPSULE BY MOUTH EVERY 12 HOURS FOR 5 DAYS 02-25 00:00: 00 Yes Ruben Avitia TAKE 2 TABLETS ONCE BY MOUTH 2021-07 00:00: 00 Yes Ruben Avitia TAKE 1 TABLET BY MOUTH THREE TIMES DAILY 2021-07 00:00: 00 Yes Ruben Avitia TAKE 1 CAPSULE BY MOUTH TWICE DAILY 2021-07 00:00: 00 Yes Ruben Avitia amoxicillin (TRIMOX) capsule 500 mg 08-15 09:00: 00 08-15 07:51 :00 No 500mg 500 mg, Oral, ONCE, 1 dose, On Fri08/15/21 at 0300, ROLAND
Re ason for Anti-Infec tive: Documented Infection< br>Documen iván Infection Site: HEENT
D uration of Therapy: Other (see Comments) [facility] amoxicillin 500 mg capsule 08-15 00:00: 00 Yes [id number] 500mg Take 1 capsule by mouth 3 (three) times daily. [facility] ibuprofen 800 mg tablet 08-15 00:00: 00 Yes [id number] 800mg Take 1 tablet by mouth every 8 (eight) hours as needed for Pain (scale 4-6) or Temp > 38.5 C. [facility] NaCl 0.9% (NS) bolus infusion 1,000 mL 2019-07 04:45: 00 05-05 06:50 :00 No 1000mL at 999 mL/hr, 1,000 mL, IV Infusion, ONCE, 1 dose, [facility] 05/04/20 at 2345, ROLAND [facility] Sprintec 28 Sprintec 28 03-31 00:00: 00 Yes Christina Mota 1 tablet [facility] Sprintec 28 0.25-35 MG-MCG Sprintec 28 0.25-35 MG-MCG 2017-03-31 00:00: 00 No 1{table t} QD Sprintec 28 0.25-35 MG-MCG Sprintec 28 0.25-35 MG-MCG Sprintec 28 0.25-35 MG-MCG 03-31 00:00: 00 No 1{table t} QD Sprintec 28 0.25-35 MG-MCG medroxyprog esterone ac medroxyprog esterone ac 01-05 00:00: 00 No 150mg [facility] medroxyprog esterone ac medroxyprog esterone ac 12-30 00:00: 00 No 150mg [facility] No known medications No Un josefina [facility] Multivitami n Multivitami n No Multivitam in Multivitami n Multivitami n No Multivitam in Vital Signs Vital Name Observation Time Observation Value Comments S ource Systolic blood pressure 2021-08-15 06:21:00 116 mm[Hg] [facility] Diastolic blood pressure 2021-08-15 06:21:00 69 mm[Hg] [facility] Heart rate 2021-08-15 06:21:00 99 /min [facility] Body temperature 2021-08-15 06:21:00 37.33 Jigna [facility] Respiratory rate 2021-08-15 06:21:00 18 /min [facility] Body height 2021-08-15 06:21:00 167.6 cm [facility] Body weight 2021-08-15 06:21:00 54.432 kg [facility] BMI 2021-08-15 06:21:00 19.37 kg/m2 [facility] Oxygen saturation in Arterial blood by Pulse oximetry 2021-08-15 06:21:00 98 /min [facility] height 2020-07-05 11:20:00 66 [in_i] [facility]mo [facility] weight 2020-07-05 11:20:00 108 [lb_av] [facility] on [facility] temperature 2020-07-05 11:20:00 97.0 [degF] Com mon [facility] bmi 2020-07-05 11:20:00 17.43 kg/m2 [facility] oximetry 2020-07-05 11:20:00 96 % [facility] respiratory rate 2020-07-05 11:20:00 16 /min Common [facility] blood pressure systolic 2020-07-05 11:20:00 110 mm[Hg] Common [facility] blood pressure diastolic 2020-07-05 11:20:00 63 mm[Hg] [facility] height 2020-06-21 14:00:00 66 [in_i] [facility]mo n [facility] weight 2020-06-21 14:00:00 107.4 [lb_av] Co mmon [facility] temperature 2020-06-21 14:00:00 97.1 [degF] Com mon [facility] bmi 2020-06-21 14:00:00 17.33 kg/m2 Comm [facility] oximetry 2020-06-21 14:00:00 98 % [facility] respiratory rate 2020-06-21 14:00:00 16 /min Common [facility] blood pressure systolic 2020-06-21 14:00:00 108 mm[Hg] Common [facility] blood pressure diastolic 2020-06-21 14:00:00 61 mm[Hg] Common Spiri t [facility] Systolic blood pressure 2020-05-05 05:44:00 113 mm[Hg] [facility] Diastolic blood pressure 2020-05-05 05:44:00 71 mm[Hg] [facility] Heart rate 2020-05-05 05:44:00 88 /min [facility] Respiratory rate 2020-05-05 05:44:00 22 /min [facility] Oxygen saturation in Arterial blood by Pulse oximetry 2020-05-05 05:44:00 98 /min [facility] Body temperature 2020-05-05 04:21:00 37.22 Jigna [facility] Body height 2020-05-05 04:21:00 165.1 cm [facility] Body weight 2020-05-05 04:21:00 50.803 kg [facility] BMI 2020-05-05 04:21:00 18.64 kg/m2 [facility] Systolic blood pressure 2020-05-05 05:44:00 113 mm[Hg] [facility] Diastolic blood pressure 2020-05-05 05:44:00 71 mm[Hg] [facility] Heart rate 2020-05-05 05:44:00 88 /min [facility] Respiratory rate 2020-05-05 05:44:00 22 /min [facility] Oxygen saturation in Arterial blood by Pulse oximetry 2020-05-05 05:44:00 98 /min [facility] Body temperature 2020-05-05 04:21:00 37.22 Jigna [facility] Body height 2020-05-05 04:21:00 165.1 cm [facility] Body weight 2020-05-05 04:21:00 50.803 kg [facility] BMI 2020-05-05 04:21:00 18.64 kg/m2 [facility] Respiratory Rate 2024-04-29 11:08:00 19.00 /min Ruben Avitia BP Systolic 2024-04-29 11:08:00 110 mm[Hg] Step stephen Avitia BP Diastolic 2024-04-29 11:08:00 65 mm[Hg] Rosalino phen Gurwinder Avitia Weight Measured 2024-04-29 11:08:00 107.60 pounds Ruben Avitia Height Measured 2024-04-29 11:08:00 66.00 inches Ruben Avitia Body Temperature 2024-04-29 11:08:00 97.80 degrees Ruben Avitia Heart Rate 2024-04-29 11:08:00 103.00 /min Step stephen Avitia BP Systolic 2024-04-15 10:24:00 121 mm[Hg] Step hen Gurwinder Avitia BP Diastolic 2024-04-15 10:24:00 76 mm[Hg] Rosalino Avitia Weight Measured 2024-04-15 10:24:00 109.00 pounds Ruben Avitia Height Measured 2024-04-15 10:24:00 66.00 inches Ruben Avitia Body Temperature 2024-04-15 10:24:00 98.30 degrees Ruben Avitia Heart Rate 2024-04-15 10:24:00 89.00 /min Kindra en Gurwinder Avitia Respiratory Rate 2024-04-15 10:24:00 Ruben Avitia Procedures Procedure Date / Time Performed Performing Clinician Source RAPID STREP SCREEN FOR GROUP A 2021-08-15 06:27:00 Devang Lr [facility] NOTICE OF PRIVACY PRACTICES 2021-08-15 06:12:48 Doctor Unassigned, [place] [facility] CONSENT/REFUSAL FOR DIAGNOSIS AND TREATMENT 2021-08-15 06:11:53 Doctor Unassigned, [place] [facility] CONSENT/REFUSAL FOR DIAGNOSIS AND TREATMENT 2021-08-15 06:11:52 Doctor Unassigned, [place] [facility] THYROID STIMULATING HORMONE 2020-05-05 05:18:00 Warren Smith [facility] COMP. METABOLIC PANEL (31002) 2020-05-05 05:18:00 Warren Smith [facility] CBC WITH DIFF 2020-05-05 05:18:00 Warren Smith [facility] URINALYSIS 2020-05-05 04:43:00 Lenard Hamlin [facility] COVID-19 (ID NOW RAPID TESTING) 2020-05-05 04:43:00 Warren Smith [facility] POCT TEST 2020-05-05 04:42:00 Lenard Hamlin [facility] EKG-12 LEAD 2020-05-05 04:26:59 Lenard Hamlin [facility] NOTICE OF PRIVACY PRACTICES 2020-05-05 04:14:09 Doctor Unassigned, [place] [facility] CONSENT/REFUSAL FOR DIAGNOSIS AND TREATMENT 2020-05-05 04:13:39 Doctor Unassigned, [place] [facility] Encounters Start Date/Time End Date/Time Encounter Type Admission Type Attending [facility] Care Facility Care Department Encounter ID Source 2023-01-10 08:50:00 Outpatient Martha Hooper [facility] [id number] [facility] 2023-01-07 13:34:00 Outpatient Martha Hooper [facility] [id number] [facility] 2021-08-22 12:08:19 Outpatient Martha Hooper [facility] [id number] [facility] 2021-08-22 12:04:46 Outpatient Martha Hooper [facility] [id number] [facility] 2024-04-29 10:59:49 2024-04-29 10:59:49 Outpatient SFA [facility] [id number] Ruben Avitia 2024-04-29 00:00:00 2024-04-29 00:00:00 Outpatient Visit S[facility] [id number] Ruben Avitia 2023-01-07 00:00:00 2023-01-07 00:00:00 (TEL) STSHE [facility] [id number] [facility] 2021-08-15 00:29:00 2021-08-15 01:56:00 Emergency X RABIAMADAIRAMANDEVANG [facility] ERT [id number] [facility] 2021-08-15 00:29:00 2021-08-15 01:56:00 Emergency Demetrio Lrbuffy Veronica [facility] [id number] [facility] 2021-08-15 00:00:00 2021-08-15 00:00:00 Letter (Out) Izabella, Skylar [facility] [id number] [facility] 2020-07-05 00:00:00 2020-07-05 00:00:00 OFFICE VISIT EST PT LEVEL 3 STLMLC STLMLC [id number] [facility] 2020-06-21 00:00:00 2020-06-21 00:00:00 OFFICE VISIT NEW PT LEVEL 3 STLMLC STLMLC [id number] [facility] 2020-05-04 23:28:00 2020-05-05 02:26:00 Emergency Warren Smith [facility] [id number] 2020-05-04 23:28:00 2020-05-05 02:26:00 Emergency Warren Smith [facility] [id number] [facility] 2020-05-04 23:28:00 2020-05-04 23:28:00 Emergency X WARREN SMITH [facility] ERT [id number] [facility] 2018-03-31 10:30:00 2018-03-31 10:30:00 Outpatient [facility] [id number] [facility] 2018-01-05 10:00:00 2018-01-05 10:00:00 Outpatient [facility] [id number] [facility] 2017-12-30 09:30:00 2017-12-30 09:30:00 Outpatient [facility] [id number] [facility] 2017-12-04 14:37:00 2017-12-04 14:37:00 Outpatient [facility] [id number] [facility] 2017-10-23 10:15:00 2017-10-23 10:15:00 Outpatient [facility] [id number] [facility] Results Test Description Test Time Test Comments Results Result Co mments Source Ruben AvitiaHCG, [id number] 00:00:00* Test Item Value Reference Range Interpretation Comme nts HCG, QUANTITATIVE (test code = 2506) 2319 MIU/ML Ruben AvitiaTHYROID STIMULATING [id number] 06:28:00* Test Item Value Reference Range Interpretation Comme nts TSH (test code = 7061184326) See_Comment [Automated [employer]] The system which generated this result transmitted reference range: 0.45 - 4.70 mIU/L. The reference range was not used to interpret this result as normal/abnormal. Lab Interpretation (test code = 67390-2) Normal [facility]. METABOLIC PANEL (16870)2020-05-05 06:00:00* Test Item Value Reference Range Interpretation Comme nts NA (test code = 3896933860) 138 mmol/L 135-145 K (test code = 6382866141) 4.0 mmol/L 3.5-5 CL (test code = 3531438007) 101 mmol/L 98-108 CO2 TOTAL (test code = 8038434000) 26 mmol/L 23-31 AGAP (test code = 6254404227) 2-16 BUN (test code = 3735725171) 15 mg/dL 7-23 GLUCOSE (test code = 8004406632) 145 mg/dL 70-110 H CREATININE (test code = 7505858159) 1.40 mg/dL 0.5-1.04 H TOTAL BILI (test code = 2740190440) 0.6 mg/dL 0.1-1.1 CALCIUM (test code = 1926216061) 9.9 mg/dL 8.6-10.6 T PROTEIN (test code = 7947230465) 8.0 g/dL 6.3-8.2 ALBUMIN (test code = 2470713182) 4.6 g/dL 3.5-5 ALK PHOS (test code = 2895906054) 42 U/L 34-122 ALTv (test code = 1742-6) 13 U/L 5-35 AST(SGOT) (test code = 0748873747) 22 U/L 13-40 eGFR Calculation (Non-) (test code = 3119220434) mL/min/1.73m2 eGFR Calculation () (test code = 1600221401) mL/min/1.73m2 SAE (test code = SAE) Association [...] imaging tests). Lab Interpretation (test code = 19456-8) [facility]2020-05-05 05:43:00* Test Item Value Reference Range Interpretation Comme nts SARS-CoV-2 Rapid ID NOW (test code = 08538-2) Not Detected Not Detected SAE (test code = SAE) ID NOW COVID-19 As say is an isothermal nucleic acid amplification test intended for the qualitative detection of nucleic acid from SARS-CoV-2 viral RNA in nasopharyngeal ([employer]) specimens. It is used under Emergency Use [...] clinically indicated. Lab Interpretation (test code = 31137-8) Normal [facility] 05:36:00* Test Item Value Reference Range Interpretation Comme nts APPEARANCE (test code = 7671637898) Cloudy Clear A COLOR (test code = 7114017855) Yellow Yellow PH (test code = 3721555071) 4.8-8.0 SP GRAVITY (test code = 3162785467) 1.003-1.030 GLU U QUAL (test code = 3149031879) Normal Normal BLOOD (test code = 7631116943) 1+ Negative A KETONES (test code = 5648913394) Negative Negative PROTEIN (test code = 2887-8) Negative Negative UROBILIN (test code = 9069559023) Normal Normal BILIRUBIN (test code = 9758541887) Negative Negative NITRITE (test code = 1438003802) Negative Negative LEUK ERROL (test code = 7515408412) 500/uL Negative A RBC/HPF (test code = 1659009496) See_Comment H [Automated [employer]] The system which generated this result transmitted reference range: 0 - 3 HPF. The reference range was not used to interpret this result as normal/abnormal. WBC/HPF (test code = 8634720868) See_Comment H [Automated [employer]] The system which generated this result transmitted reference range: 0 - 5 HPF. The reference range was not used to interpret this result as normal/abnormal. BACTERIA (test code = 5629927783) Few Negative A SQ EPITH (test code = 3724011996) HPF Lab Interpretation (test code = 41583-3) Abnormal [facility] with [id number] 05:35:00* Test Item Value Reference Range Interpretation [...] 34.4 g/dL 31.6-35.1 RDW-SD (test code = 68418-0) 38.2 fL 39-49.9 L RDW-CV (test code = 788-0) 12.3 % 12-15.5 PLT (test code = 777-3) See_Comment [Automated messa ge] The system which generated this result transmitted reference range: 166 - 358 10*3/?L. The reference range was not used to interpret this result as normal/abnormal. MPV (test code = 11413-4) 10.1 fL 9.5-12.9 NRBC/100 WBC (test code = 1260158001) See_Comment [Automated [employer]] The system which generated this result transmitted reference range: 0.0 - 10.0 /100 WBCs. The reference range was not used to interpret this result as normal/abnormal. NRBC x10^3 (test code = 6800478329) <0.01 See_Comment [Automated messa ge] The system which generated this result transmitted reference range: 10*3/?L. The reference range was not used to interpret this result as normal/abnormal. GRAN MAT (NEUT) % (test code = 770-8) 57.8 % IMM GRAN % (test code = 9832115758) 0.30 % LYMPH % (test code = 736-9) 31.5 % MONO % (test code = 5905-5) 9.7 % EOS % (test code = 713-8) 0.3 % BASO % (test code = 706-2) 0.4 % GRAN MAT x10^3(ANC) (test code = 1759519306) 5.28 10*3/uL 1.88-7.09 IMM GRAN x10^3 (test code = 9728147460) 0.03 10*3/uL 0-0.06 LYMPH x10^3 (test code = 731-0) 2.88 10*3/uL 1.32-3.29 MONO x10^3 (test code = 742-7) 0.89 10*3/uL 0.33-0.92 EOS x10^3 (test code = 711-2) 0.03 10*3/uL 0.03-0.39 BASO x10^3 (test code = 704-7) 0.04 10*3/uL 0.01-0.07 Lab Interpretation (test code = 03705-2) [facility] [id number] 04:42:00* Test Item Value Reference Range Interpretation Comme nts POCT PREG (test code = 1605) negative On board controls acceptable with C Line (test code = 3574) present POCT PREG LOT # (test code = 3575) [id number] POCT PREG TEST DATE ( test code = 3576) 03/27/2021 Lab Interpretation (test cod e = 51639-5) [facility], UrinePregnancy Test, UrineRequest Problem Notes Date/Time Note Provider Source Ruben Avitia [facility]"
--- NOTE | 2024-05-04 12:30 | EDPHYS ---
Physician Documentation [facility] Name: Yasmin Velez Age: 23 yrs Sex: Female : 2000 Arrival Date: 05/04/2024 Time: 12:03 Bed 20 Private MD: ED Physician Sonam Rodriguez HPI: 05/04 12:26 This 23 yrs old Female presents to ER via Ambulatory with complaints of Jaw Pain. sp3 12:26 23-year-old female with anxiety now 7 weeks presents with left jaw and TMJ sp3 type pain. Patient does endorse that she clenches her teeth at night and potentially grinds them. No fever, sore throat, URI symptoms or dental pain per se. She also denies neck pain, chest pain, shortness of breath, rash, syncope, or any other signs or symptoms on ROS at this time.. Historical: - Allergies: 12:17 No Known Allergies; hb - Home Meds: 12:17 Lexapro 5 mg Oral tab 1 tab once daily [Active]; hb - PMHx: 12:17 Anxiety; depressive disorder; tension MOONEY; hb - PSHx: 12:17 None; hb - Immunization history:: Adult Immunizations up to date. - Infectious Disease History:: Denies. - Social history:: Smoking status: Patient/guardian denies using tobacco. ROS: 12:28 Constitutional: Negative for fever, chills, and weight loss, Eyes: Negative for injury, sp3 pain, redness, and discharge, Neck: Negative for injury, pain, and swelling, Cardiovascular: Negative for chest pain, palpitations, and edema, Respiratory: Negative for shortness of breath, cough, wheezing, and pleuritic chest pain, Abdomen/GI: Negative for abdominal pain, nausea, vomiting, diarrhea, and constipation, Back: Negative for injury and pain, MS/Extremity: Negative for injury and deformity, Skin: Negative for injury, rash, and discoloration, Neuro: Negative for headache, weakness, numbness, tingling, and seizure, Psych: Negative for depression, anxiety, suicide ideation, homicidal ideation, and hallucinations, Allergy/Immunology: Negative for hives, rash, and allergies, Endocrine: Negative for neck swelling, polydipsia, polyuria, polyphagia, and marked weight changes, 12:28 All other systems are negative, Exam: 12:28 Constitutional: This is a well developed, well nourished patient who is awake, alert, sp3 and in no acute distress. Head/Face: Normocephalic, atraumatic. Neck: Trachea midline, no thyromegaly or masses palpated, and no cervical lymphadenopathy. Supple, full range of motion without nuchal rigidity, or vertebral point tenderness. No Meningismus. Chest/axilla: Normal chest wall appearance and motion. Nontender with no deformity. No lesions are appreciated. Cardiovascular: Regular rate and rhythm with a normal S1 and S2. No gallops, murmurs, or rubs. Normal PMI, no JVD. No pulse deficits. Respiratory: Lungs have equal breath sounds bilaterally, clear to auscultation and percussion. No rales, rhonchi or wheezes noted. No increased work of breathing, no retractions or nasal flaring. Abdomen/GI: Soft, non-tender, with normal bowel sounds. No distension or tympany. No guarding or rebound. No evidence of tenderness throughout. Back: No spinal tenderness. No costovertebral tenderness. Full range of motion. Skin: Warm, dry with normal turgor. Normal color with no rashes, no lesions, and no evidence of cellulitis. MS/ Extremity: Pulses equal, no cyanosis. Neurovascular intact. Full, normal range of motion. Neuro: Awake and alert, GCS 15, oriented to person, place, time, and situation. Cranial nerves II-XII grossly intact. Motor strength 5/5 in all extremities. Sensory grossly intact. Cerebellar exam normal. Normal gait. Psych: Awake, alert, with orientation to person, place and time. Behavior, mood, and affect are within normal limits. 12:28 ENT: Positive click on TMJ opening and closing. Pain on the left TMJ area. No pain on the parotid gland and there is saliva being produced intraorally. No otalgia or dental findings. Uvula is midline and there is no peritonsillar swelling or erythema. Airway is intact and patient has no difficulty breathing. Vital signs are normal.. Vital Signs: 12:16 BP 116 / 75; Pulse 88; Resp 16; Temp 98(O); Pulse Ox 100% on R/A; Weight 49.9 kg; hb Height 5 ft. 6 in. ; Pain 8/10; 12:30 BP 112 / 67; Pulse 75; Resp 18; Pulse Ox 100% on R/A; db 12:16 Body Mass Index 17.75 (49.90 kg, 167.64 cm) hb 12:16 Pain Scale: Adult hb MDM: 12:18 Patient medically screened. sp3 12:29 Data reviewed: vital signs, nurses notes. 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 sp3 Clinically have ruled out parotiditis, dental infection, or any other localized infection in that area. Patient cannot take NSAIDs given her status. We will put her on OTC acetaminophen and a bite guard has been recommended.. Administered Medications: No medications were administered Disposition Summary: 05/04/24 12:30 Discharge Ordered Notes: Location: Home sp3 Condition: Stable sp3 Diagnosis - Bruxism, TMJ sp3 Followup: sp3 - With: Private Physician - When: Upon discharge from the Emergency Department - Reason: Continuance of care Discharge Instructions: - Discharge Summary Sheet sp3 - Temporomandibular Joint Syndrome sp3 Forms: - Medication Reconciliation Form sp3 - Antibiotic Education sp3 - Prescription Opioid Use sp3 - Patient Portal Instructions sp3 - Leadership Thank You Letter sp3 Signatures: Naomi Leonardo RN RN hb Patel, Setul, MD MD sp3
--- NOTE | 2024-05-04 12:30 | ER ---
Nurse's Notes [facility] Name: Yasmin Velez Age: 23 yrs Sex: Female : 2000 Arrival Date: 05/04/2024 Time: 12:03 Bed 20 Private MD: Diagnosis: Bruxism, TMJ Presentation: 05/04 12:16 Chief complaint: Left upper molar pain x 1 week, is approx 7 weeks , unable to hb make appt with dentist without medical clearance. Coronavirus screen: At this time, the client does not indicate any symptoms associated with coronavirus-19. Ebola Screen: No symptoms or risks identified at this time. Initial Sepsis Screen: Does the patient meet any 2 criteria? No. Patient's initial sepsis screen is negative. Does the patient have a suspected source of infection? No. Patient's initial sepsis screen is negative. Risk Assessment: Do you want to hurt yourself or someone else? Patient reports no desire to harm self or others. Onset of symptoms was April 28, 2024. 12:16 Method Of Arrival: Ambulatory hb 12:16 Acuity: JIL 4 hb Historical: - Allergies: 12:17 No Known Allergies; hb - Home Meds: 12:17 Lexapro 5 mg Oral tab 1 tab once daily [Active]; hb - PMHx: 12:17 Anxiety; depressive disorder; tension MOONEY; hb - PSHx: 12:17 None; hb - Immunization history:: Adult Immunizations up to date. - Infectious Disease History:: Denies. - Social history:: Smoking status: Patient/guardian denies using tobacco. Screenin:42 [facility] ED Fall Risk Assessment (Adult) History of falling in the last 3 months, db including since admission No falls in past 3 months (0 pts) Confusion or Disorientation No (0 pts) Intoxicated or Sedated No (0 pts) Impaired Gait No (0 pts) Mobility Assist Device Used No (0 pt) Altered Elimination No (0 pt) Score/Fall Risk Level 0 - 2 = Low Risk Oriented to surroundings, Maintained a safe environment. Abuse screen: Denies threats or abuse. Denies injuries from another. Nutritional screening: No deficits noted. Tuberculosis screening: No symptoms or risk factors identified. Assessment: 12:42 Reassessment: Patient appears in no apparent distress at this time. Patient and/or db family updated on plan of care and expected duration. Pain level reassessed. Patient is alert, oriented x 3, equal unlabored respirations, skin warm/dry/pink. General: Appears in no apparent distress. comfortable, Behavior is calm, cooperative. Pain: Complains of pain in JAW. Neuro: Level of Consciousness is awake, alert, obeys commands, Oriented to person, place, time, situation. Respiratory: Airway is patent Respiratory effort is even, unlabored, Respiratory pattern is regular, symmetrical. EENT: Reports pain in JAW. Vital Signs: 12:16 BP 116 / 75; Pulse 88; Resp 16; Temp 98(O); Pulse Ox 100% on R/A; Weight 49.9 kg; hb Height 5 ft. 6 in. ; Pain 8/10; 12:30 BP 112 / 67; Pulse 75; Resp 18; Pulse Ox 100% on R/A; db 12:16 Body Mass Index 17.75 (49.90 kg, 167.64 cm) hb 12:16 Pain Scale: Adult ED Course: 12:05 Patient arrived in ED. mg5 12:06 Sonam Rodriguez MD is Attending Physician. sp3 12:17 Triage completed. 12:17 Arm band placed on. 12:37 Catalina Pappas, RN is Primary Nurse. db 12:42 Patient has correct armband on for positive identification. Call light in reach. Side db rails up X 1. Provided Education on: DISCHARGE AND FOLLOWUP. Pulse ox on. NIBP on. Pillow given. 12:42 No provider procedures requiring assistance completed. Patient did not have IV access db during this emergency room visit. Administered Medications: No medications were administered Medication: 12:42 VIS not applicable for this client. db Outcome: 12:30 Discharge ordered by . sp3 12:42 Discharged to home ambulatory, db 12:42 Condition: stable 12:42 Discharge instructions given to patient, Instructed on discharge instructions, follow up and referral plans. 12:45 Patient left the ED. db Signatures: Naomi Leonardo, RN RN Sonam Rodriguez MD MD sp3 Catalina Pappas, RN RN Jeannette Vail mg5
[2024-05-04 12:50] VITALS: TEMP 98; O2SAT 100
[2024-05-04 12:51] VITALS: BP 112/67
== END 2024-05-04 12:45 | disposition home or self-care (01) ==
LOC: ER 12:03
DX: O99.891 Other specified diseases and conditions complicating pregnancy (principal); M26.602 Left temporomandibular joint disorder, unspecified; F45.8 Other somatoform disorders; Z3A.01 Less than 8 weeks gestation of pregnancy
CPT/HCPCS: 99283

== ENCOUNTER 2024-05-14 20:53 | Emergency (ER) | payer OTHER ==
--- OUTSIDE RECORDS SUMMARY | 2024-05-14 20:55 | XMS REPORT | Continuity of Care Document ---
Author Name Unknown Address [address] [facility] [address]. [address] [place] [address] [facility] Address [address] [facility]. [address] [place] [address] Care Team Providers Care Emergency Generator Mechanic Name Role Phone Kelly Townsend Primary Care Physician [phone] Martha Hooper Attending Clinician Unavailable DEVANG LR Attending Clinician Unavailable Devang Lr MD Attending Clinician [phone] Skylar Parekh RN Attending Clinician Unavailable Warren Bloom Attending Clinician [phone] WARREN SMITH Attending Clinician Unavailable Problems Condition Name Condition Details Condition Category Status Onset Date Resolution Date Last Treatment Date Treating Clinician Comments Source No known active problems No known active problems Disease [facility] [id number] Irregular menstrual cycle Problem Active [facility] [id number] Palpitatio ns Problem Active [facility] Allergies, Adverse Reactions, Alerts Allergy Name Allergy Type Status Severity Reaction(s) Onset Date Inactive Date Treating Clinician Comments Source NO KNOWN ALLERGIE S Drug Class Active [facility] Social History Social Habit Start Date Stop Date Quantity Comments Source Exposure to SARS-CoV-2 (event) Not sure [facility] History of Tobacco Use [facility] Sex Assigned At [facility] Smoking Status Start Date Stop Date Source Never Smoker [facility] Unknown if ever smoked [facility] Medications Ordered Medication Name Filled [...]
D uration of Therapy: Other (see Comments) [facility] amoxicillin 500 mg capsule 08-15 00:00: 00 Yes [id number] 500mg Take 1 capsule by mouth 3 (three) times daily. [facility] ibuprofen 800 mg tablet 08-15 00:00: 00 Yes [id number] 800mg Take 1 tablet by mouth every 8 (eight) hours as needed for Pain (scale 4-6) or Temp > 38.5 C. [facility] NaCl 0.9% (NS) bolus infusion 1,000 mL 2019-07 04:45: 00 05-05 06:50 :00 No 1000mL at 999 mL/hr, 1,000 mL, IV Infusion, ONCE, 1 dose, [facility] 05/04/20 at 2345, ROLAND [facility] Sprintec 28 Sprintec 28 03-31 00:00: 00 Yes Christina Mota 1 tablet [facility] Sprintec 28 0.25-35 MG-MCG Sprintec 28 0.25-35 MG-MCG 03-31 00:00: 00 No 1{table t} QD Sprintec 28 0.25-35 MG-MCG Sprintec 28 0.25-35 MG-MCG Sprintec 28 0.25-35 MG-MCG 03-31 00:00: 00 No 1{table t} QD Sprintec 28 0.25-35 MG-MCG medroxyprog esterone ac medroxyprog esterone ac 01-05 00:00: 00 No 150mg [facility] medroxyprog esterone ac medroxyprog esterone ac 12-30 00:00: 00 No 150mg [facility] No known medications No Un josefina [facility] Multivitami n Multivitami n No Multivitam in Multivitami n Multivitami n No Multivitam in Vital Signs Vital Name Observation Time Observation Value Comments S ource Systolic blood pressure 2021-08-15 06:21:00 116 mm[Hg] [facility] Diastolic blood pressure 2021-08-15 06:21:00 69 mm[Hg] [facility] Heart rate 2021-08-15 06:21:00 99 /min [facility] Body temperature 2021-08-15 06:21:00 37.33 Jigna [facility] Respiratory rate 2021-08-15 06:21:00 18 /min [facility] Body height 2021-08-15 06:21:00 167.6 cm [facility] Body weight 2021-08-15 06:21:00 54.432 kg [facility] BMI 2021-08-15 06:21:00 19.37 kg/m2 [facility] Oxygen saturation in Arterial blood by Pulse oximetry 2021-08-15 06:21:00 98 /min [facility] height 2020-07-05 11:20:00 66 [in_i] [facility] weight 2020-07-05 11:20:00 108 [lb_av] [facility] temperature 2020-07-05 11:20:00 97.0 [degF] [facility] bmi 2020-07-05 11:20:00 17.43 kg/m2 [facility] oximetry 2020-07-05 11:20:00 96 % [facility] respiratory rate 2020-07-05 11:20:00 16 /min [facility] blood pressure systolic 2020-07-05 11:20:00 110 mm[Hg] Common [facility] blood pressure diastolic 2020-07-05 11:20:00 63 mm[Hg] Common [facility] height 2020-06-21 14:00:00 66 [in_i] [facility] weight 2020-06-21 14:00:00 107.4 [lb_av] Co mmon [facility] temperature 2020-06-21 14:00:00 97.1 [degF] Com [facility] bmi 2020-06-21 14:00:00 17.33 kg/m2 [facility] oximetry 2020-06-21 14:00:00 98 % [facility] respiratory rate 2020-06-21 14:00:00 16 /min [facility] blood pressure systolic 2020-06-21 14:00:00 108 mm[Hg] Common [facility] blood pressure diastolic 2020-06-21 14:00:00 61 mm[Hg] Common Spiri [facility] Systolic blood pressure 2020-05-05 05:44:00 113 mm[Hg] [facility] Diastolic blood pressure 2020-05-05 05:44:00 71 mm[Hg] [facility] Heart rate 2020-05-05 05:44:00 88 /min [facility] Respiratory rate 2020-05-05 05:44:00 22 /min [facility] Oxygen saturation in Arterial blood by Pulse oximetry 2020-05-05 05:44:00 98 /min [facility] Body temperature 2020-05-05 04:21:00 37.22 Jigna [facility] Body height 2020-05-05 04:21:00 165.1 cm [facility] Body weight 2020-05-05 04:21:00 50.803 kg [facility] BMI 2020-05-05 04:21:00 18.64 kg/m2 [facility] Systolic blood pressure 2020-05-05 05:44:00 113 mm[Hg] [facility] Diastolic blood pressure 2020-05-05 05:44:00 71 mm[Hg] [facility] Heart rate 2020-05-05 05:44:00 88 /min [facility] Respiratory rate 2020-05-05 05:44:00 22 /min [facility] Oxygen saturation in Arterial blood by Pulse oximetry 2020-05-05 05:44:00 98 /min [facility] Body temperature 2020-05-05 04:21:00 37.22 Jigna [facility] Body height 2020-05-05 04:21:00 165.1 cm [facility] Body weight 2020-05-05 04:21:00 50.803 kg [facility] BMI 2020-05-05 04:21:00 18.64 kg/m2 [facility] Respiratory Rate 2024-04-29 11:08:00 19.00 /min Rubenstephen Avitia BP Systolic 2024-04-29 11:08:00 110 mm[Hg] Step hen Gurwinder Avitia BP Diastolic 2024-04-29 11:08:00 65 mm[Hg] Rosalino phen F Sadi Weight Measured 2024-04-29 11:08:00 107.60 pounds Ruben Avitia Height Measured 2024-04-29 11:08:00 66.00 inches Ruben [facility]it[facility] Body Temperature 2024-04-29 11:08:00 97.80 degrees Ruben Gurwinder Sadi Heart Rate 2024-04-29 11:08:00 103.00 /min Step hen F Sadi BP Systolic 2024-04-15 10:24:00 121 mm[Hg] Step [...] FOR GROUP A 2021-08-15 06:27:00 Devang Lr [facility] NOTICE OF PRIVACY PRACTICES 2021-08-15 06:12:48 Doctor Unassigned, [place] [facility] CONSENT/REFUSAL FOR DIAGNOSIS AND TREATMENT 2021-08-15 06:11:53 Doctor Unassigned, [place] [facility] CONSENT/REFUSAL FOR DIAGNOSIS AND TREATMENT 2021-08-15 06:11:52 Doctor Unassigned, [place] [facility] THYROID STIMULATING HORMONE 2020-05-05 05:18:00 Warren Smith [facility] COMP. METABOLIC PANEL (62772) 2020-05-05 05:18:00 Warren Smith [facility] CBC WITH DIFF 2020-05-05 05:18:[address] [facility] URINALYSIS 2020-05-05 04:43:00 Lenard Hamlin [facility] COVID-19 (ID NOW RAPID TESTING) 2020-05-05 04:43:00 Warren Smith [facility] POCT TEST 2020-05-05 04:42:00 Lenard Hamlin [facility] EKG-12 LEAD 2020-05-05 04:26:59 Lenard Hamlin [facility] NOTICE OF PRIVACY PRACTICES 2020-05-05 04:14:09 Doctor Unassigned, [place] [facility] CONSENT/REFUSAL FOR DIAGNOSIS AND TREATMENT 2020-05-05 04:13:39 Doctor Unassigned, [place] [facility] Encounters Start Date/Time End Date/Time Encounter Type Admission Type Attending [facility] Care Facility Care Department Encounter ID Source 2023-01-10 08:50:00 Outpatient [facility] [id number] [facility] 2023-01-07 13:34:00 Outpatient Martha Hooper [facility] [id number] [facility] 2021-08-22 12:08:19 Outpatient Martha Hooper [facility] [id number] [facility] 2021-08-22 12:04:46 Outpatient Martha Hooper [facility] [id number] [facility] 2024-05-13 08:42:08 2024-05-13 08:42:08 Outpatient SFA S[facility] [id number] Ruben Avitia 2024-04-29 10:59:49 2024-04-29 10:59:49 Outpatient SFA SFA [id number] Ruben Avitia 2024-04-29 00:00:00 2024-04-29 00:00:00 Outpatient Visit SFA [id number] Ruben Avitia 2023-01-07 00:00:00 2023-01-07 00:00:00 ([facility]EL[facility] [id number] [facility] 2021-08-15 00:29:00 2021-08-15 01:56:00 Emergency X DEVANG LR [facility] ERT [id number] [facility] 2021-08-15 00:29:00 2021-08-15 01:56:00 Emergency Corey Devang Veronica [facility] [id number] [facility] 2021-08-15 00:00:00 2021-08-15 00:00:00 Letter (Out) Skylar Parekh [facility] [id number] [facility] 2020-07-05 00:00:00 2020-07-05 00:00:00 OFFICE VISIT EST PT LEVEL 3 STLMLC STLMLC [id number] [facility] 2020-06-21 00:00:00 2020-06-21 00:00:00 OFFICE VISIT NEW PT LEVEL 3 STLMLC STLMLC [id number] [facility] 2020-05-04 23:28:00 2020-05-05 02:26:00 Emergency Warren Smith [facility] [id number] 2020-05-04 23:28:00 2020-05-05 02:26:00 Emergency Warren Smith [facility] [id number] [facility] 2020-05-04 23:28:00 2020-05-04 23:28:00 Emergency X WARREN SMITH [facility] ERT [id number] [facility] 2018-03-31 10:30:00 2018-03-31 10:30:00 Outpatient [facility] [id number] [facility] 2018-01-05 10:00:00 2018-01-05 10:00:00 [facility]patient [facility] [id number] [facility] 2017-12-30 09:30:00 2017-12-30 09:30:00 Outpatient [facility] [id number] [facility] 2017-12-04 14:37:00 2017-12-04 14:37:00 Outpatient [facility] [id number] [facility] 2017-10-23 10:15:00 2017-10-23 10:15:00 Outpatient [facility] [id number] [facility] Results Test Description Test Time Test Comments Results Result Co mments Source Ruben AvitiaHCG, [id number] 00:00:00* Test Item Value Reference Range Interpretation Comme nts HCG, QUANTITATIVE (test code = 2506) 2319 MIU/ML Ruben AvitiaTHYROID STIMULATING [id number] 06:28:00* Test Item Value Reference Range Interpretation Comme nts TSH (test code = 6929749323) See_Comment [Automated [employer]] The system which generated this result transmitted reference range: 0.45 - 4.70 mIU/L. The reference range was not used to interpret this result as normal/abnormal. Lab Interpretation (test code = 02304-2) Normal [facility]. METABOLIC PANEL (73790)2020-05-05 06:00:00* Test Item Value Reference Range Interpretation Comme nts NA (test code = 4626737543) 138 mmol/L 135-145 K (test code = 0665979331) 4.0 mmol/L 3.5-5 CL (test code = 5014871686) 101 mmol/L 98-108 CO2 TOTAL (test code = 4102492088) 26 mmol/L 23-31 AGAP (test code = 2784042809) 2-16 BUN (test code = 7523107411) 15 mg/dL 7-23 GLUCOSE (test code = 0239488694) 145 mg/dL 70-110 H CREATININE (test code = 6225809179) 1.40 mg/dL 0.5-1.04 H TOTAL BILI (test code = 6957135913) 0.6 mg/dL 0.1-1.1 CALCIUM (test code = 8071846520) 9.9 mg/dL 8.6-10.6 T PROTEIN (test code = 8497391814) 8.0 g/dL 6.3-8.2 ALBUMIN (test code = 4363356937) 4.6 g/dL 3.5-5 ALK PHOS (test code = 3629599821) 42 U/L 34-122 ALTv (test code = 1742-6) 13 U/L 5-35 AST(SGOT) (test code = 0431296149) 22 U/L 13-40 eGFR Calculation (Non-) (test code = 3745006911) mL/min/1.73m2 eGFR Calculation () (test code = 7274654683) mL/min/1.73m2 SAE (test code = SAE) Association [...] imaging tests). Lab Interpretation (test code = 98207-6) [facility]ID NOW RAPID TESTING)2020-05-05 05:43:00* Test Item Value Reference Range Interpretation Comme zoila SARS-CoV-2 Rapid ID NOW (test code = 58876-7) Not Detected Not Detected SAE (test code = SAE) ID NOW COVID-19 As say is an isothermal nucleic acid amplification test intended for the qualitative detection of nucleic acid from SARS-CoV-2 viral RNA in nasopharyngeal (EXTRUSION DIE CORRECTOR) specimens. It is used under Emergency Use [...] clinically indicated. Lab Interpretation (test code = 32103-2) [facility]* Test Item Value Reference Range Interpretation Comme nts APPEARANCE (test code = 6749204128) Cloudy Clear A COLOR (test code = 0682961053) Yellow Yellow PH (test code = 4810810419) 4.8-8.0 SP GRAVITY (test code = 4318303044) 1.003-1.030 GLU U QUAL (test code = 4769929283) Normal Normal BLOOD (test code = 7046000832) 1+ Negative A KETONES (test code = 3147264878) Negative Negative PROTEIN (test code = 2887-8) Negative Negative UROBILIN (test code = 8194468941) Normal Normal BILIRUBIN (test code = 6500194022) Negative Negative NITRITE (test code = 5943663917) Negative Negative LEUK ERROL (test code = 0374546525) 500/uL Negative A RBC/HPF (test code = 6034515890) See_Comment H [Automated [employer]] The system which generated this result transmitted reference range: 0 - 3 HPF. The reference range was not used to interpret this result as normal/abnormal. WBC/HPF (test code = 5048116516) See_Comment H [[employer]ated [employer]] The system which generated this result transmitted reference range: 0 - 5 HPF. The reference range was not used to interpret this result as normal/abnormal. BACTERIA (test code = 9813545400) Few Negative A SQ EPITH (test code = 7679498726) HPF Lab Interpretation (test code = 82723-0) Abnormal [facility] with [id number] 05:35:00* Test Item Value Reference Range Interpretation Comme nts WBC (test code = 6690-2) See_Comment [[employer]] The system which generated this result transmitted reference range: 4.30 - 11.10 10*3/?L. The reference range was not used to interpret this result as normal/abnormal. RBC (test code = 789-8) See_Comment [[employer]ated [employer]] The system which generated this result [...] 34.4 g/dL 31.6-35.1 RDW-SD (test code = 95028-6) 38.2 fL 39-49.9 L RDW-CV (test code = 788-0) 12.3 % 12-15.5 PLT (test code = 777-3) See_Comment [[employer]ated [employer]] The system which generated this result transmitted reference range: 166 - 358 10*3/?L. The reference range was not used to interpret this result as normal/abnormal. MPV (test code = 82774-4) 10.1 fL 9.5-12.9 NRBC/100 WBC (test code = 3546737803) See_Comment [Automated [employer]] The system which generated this result transmitted reference range: 0.0 - 10.0 /100 WBCs. The reference range was not used to interpret this result as normal/abnormal. NRBC x10^3 (test code = 5478831626) <0.01 See_Comment [Automated messa ge] The system which generated this result transmitted reference range: 10*3/?L. The reference range was not used to interpret this result as normal/abnormal. GRAN MAT (NEUT) % (test code = 770-8) 57.8 % IMM GRAN % (test code = 1844577027) 0.30 % LYMPH % (test code = 736-9) 31.5 % MONO % (test code = 5905-5) 9.7 % EOS % (test code = 713-8) 0.3 % BASO % (test code = 706-2) 0.4 % GRAN MAT x10^3(ANC) (test code = 9398874913) 5.28 10*3/uL 1.88-7.09 IMM GRAN x10^3 (test code = 7146895622) 0.03 10*3/uL 0-0.06 LYMPH x10^3 (test code = 731-0) 2.88 10*3/uL 1.32-3.29 MONO x10^3 (test code = 742-7) 0.89 10*3/uL 0.33-0.92 EOS x10^3 (test code = 711-2) 0.03 10*3/uL 0.03-0.39 BASO x10^3 (test code = 704-7) 0.04 10*3/uL 0.01-0.07 Lab Interpretation (test code = 95908-6) [id number] 04:42:00* Test Item Value Reference Range Interpretation Comme nts POCT PREG (test code = 1605) negative On board controls acceptable with C Line (test code = 3574) present POCT PREG LOT # (test code = 3575) [id number] POCT PREG TEST DATE ( test code = 3576) 03/27/2021 Lab Interpretation (test cod e = 42769-0) Normal [facility], UrinePregnancy Test, UrineRequest Problem Notes Date/Time Note Provider Source Ruben Rangel [facility]"
[2024-05-14 21:37] LABS: Absolute Basophils 0.1 K/uL (0-0.5); Absolute Eosinophils 0.1 K/uL (0-0.5); Absolute Monocytes 0.8 K/uL (0.1-1.3); Absolute Neutrophil 9.9 K/uL (1.8-8.0); Basophils % 0.6 % (0-1.3); Eosinophils % 0.6 % (0-4.4); Hematocrit 36.1 % (36.0-45.0); Hemoglobin 12.7 g/dL (12.0-15.0); Lymphocytes % 21.7 % (15.3-44.8); MCH 30.4 pg (27.0-35.0); MCHC 35.2 g/dL (32.0-36.0); MCV 86.3 fL (80-100); Monocytes % 5.9 % (3.3-12.3); Neutrophils % 71.2 % (41.7-73.7); Platelets 242 thou/uL (152-406); RBC Red Blood Cell Count 4.18 M/uL (3.86-4.86); Red Cell Distribution Width 12.7 % (12.1-15.2)
[2024-05-14 21:45] LABS: Specific Gravity < 1.005 (1.005-1.030); Sqamous Epithelial <5 /HPF (None Seen); Urine Bacteria <20 /HPF (<20); Urine Bilirubin NEGATIVE (Negative); Urine Blood Negative (Negative); Urine Clarity Turbid (Clear); Urine Color Colorless (Yellow); Urine Crystals Unidentified Few /HPF (None Seen); Urine Culture Reflex Order NOT NEEDED; Urine Glucose NEGATIVE (Negative); Urine Ketones TRACE (Negative); Urine Micro Reflex YN NO BILL MICROSCOPIC; Urine Nitrite NEGATIVE (Negative); Urine Protein NEGATIVE (Negative); Urine RBC None Seen /HPF (None Seen); Urine Urobilinogen Normal (Normal); Urine WBC <5 /HPF (<5); Urine Yeast (Budding) Trace /HPF (None Seen)
[2024-05-14] MEDS ORDERED: metroNIDAZOLE 500 MG TABLET ONE (21:45)
[2024-05-14] MEDS ORDERED: CEFTRIAXONE 1000 MG/VIAL ONE (21:45)
[2024-05-14] MEDS ORDERED: ONDANSETRON 4 MG (ODT) TAB ONE (21:45)
[2024-05-14] MEDS ORDERED: AZITHROMYCIN 1 GM PACKET ONE (21:46)
[2024-05-14] MEDS ORDERED: NA CHLORIDE 0.9% 500 ML ONE (21:46)
[2024-05-14] MEDS ORDERED: NA CHLORIDE 0.9% 50 ML ONE (21:46)
[2024-05-14 21:55] LABS: ALT/SGPT 16 U/L (13-56); Albumin 3.8 g/dL (3.4-5.0); Albumin/Globulin Ratio 1.1 (1.1-1.8); Alkaline Phosphatase 36 U/L (45-117); Anion Gap 9.3 mEq/L (5.0-15.0); BUN Blood Urea Nitrogen 7 mg/dL (7-18); Bicarbonate 24 mEq/L (21-32); Bilirubin Total 0.4 mg/dL (0.2-1.0); Globulin 3.4 g/dL (2.3-3.5); Glomerular Filtration Rate 126 ml/min (=/>90); Glucose Level 87 mg/dL (74-106); Potassium 3.3 mEq/L (3.5-5.1); Protein, Total 7.2 g/dL (6.4-8.2); Sodium Level 136 mEq/L (136-145)
[2024-05-14 21:56] LABS: AST/SGOT < 10 U/L (15-37)
--- NOTE | 2024-05-15 00:45 | RAD REPORT ---
EXAM: US , Limited CLINICAL HISTORY: Pelvic pain. TECHNIQUE: Real-time limited ultrasound of the maternal uterus with image documentation. COMPARISON: No relevant prior studies available. FINDINGS: Fetus: Single intrauterine gestational sac. Mean sac diameter measures 32.9 mm corresponding to an estimated gestational age of 8 weeks 3 days. The crown-rump length measures 22.3 mm corresponding to an estimated gestational age of 8 weeks 6 days. A small yolk sac is present. cardiac activit y measures 184 BPM. Small crescentic hypoechoic area adjacent to the gestational sac measuring 6 x 5 x 7 mm. Uterus: The uterus is anteverted and measures 11.2 x 5.7 x 8.5 cm. Adnexa: Right and left ovarian measurements are 3.6 x 1.6 x 1.6 cm and 3.1 x 2.2 x 1.2 cm, respecti vely. IMPRESSION: 1. Single live intrauterine gestation. Small subchorionic hemorrhage. 2. Estimated gestational age by ultrasound is 8 weeks 5 days. 3. Estimated due date by ultrasound is 12/19/2024. Electronically signed by: Madelaine Santoyo MD 05/15/2024 12:41 AM CDT Due to temporary technical issues with the PACS/Power scribe reporting system, reports are being sign ed by the in-house radiologist without review as a courtesy to ensure prompt reporting the interpreting rad iologist is fully responsible for the content of the report. Transcribed Date/Time: 05/15/2024 12:45 AM
--- NOTE | 2024-05-15 00:56 | ER ---
Nurse's Notes [facility] Name: Yasmin Velez Age: 23 yrs Sex: Female : 2000 Arrival Date: 05/14/2024 Time: 20:53 Bed 7 Private MD: Diagnosis: at 8 weeks 5 days EGA, Acute cervicitis, vaginal discharge in Presentation: 05/14 21:00 Chief complaint: Patient states: BODY CHILLS, YELLOW VAGINAL DISCHARGE, PELVIC ha1 CRAMPING. 9 WEEK . 21:00 Coronavirus screen: Vaccine status: Patient reports being unvaccinated. Ebola Screen: ha1 No symptoms or risks identified at this time. Initial Sepsis Screen: Does the patient meet any 2 criteria? No. Patient's initial sepsis screen is negative. Does the patient have a suspected source of infection? No. Patient's initial sepsis screen is negative. Risk Assessment: Do you want to hurt yourself or someone else? Patient reports no desire to harm self or others. Onset of symptoms was May 14, 2024. 21:00 Method Of Arrival: Ambulatory ha1 21:00 Acuity: JIL 3 ha1 Triage Assessment: 21:00 General: Appears comfortable, Behavior is calm, cooperative. Pain: Complains of pain in ha1 pelvis Pain does not radiate. Pain currently is 5 out of 10 on a pain scale. Quality of pain is described as crampy. Neuro: Level of Consciousness is awake, alert, obeys commands, Oriented to person, place, time, situation. Cardiovascular: Patient's skin is warm and dry. Respiratory: Airway is patent Respiratory effort is even, unlabored, Respiratory pattern is regular, symmetrical. Historical: - Allergies: 21:00 No Known Allergies; ha1 - Home Meds: 21:00 Lexapro 5 mg Oral tab 1 tab once daily [Active]; ha1 - PMHx: 21:00 Anxiety; depressive disorder; tension MOONEY; ha1 - Immunization history:: Adult Immunizations up to date. - Infectious Disease History:: Denies. - Social history:: Smoking status: Patient denies any tobacco usage or history of. - Family history:: not pertinent. Screenin:17 [facility] ED Fall Risk Assessment (Adult) History of falling in the last 3 months, br2 including since admission No falls in past 3 months (0 pts) Confusion or Disorientation No (0 pts) Intoxicated or Sedated No (0 pts) Impaired Gait No (0 pts) Mobility Assist Device Used No (0 pt) Altered Elimination No (0 pt) Score/Fall Risk Level 0 - 2 = Low Risk Oriented to surroundings. Abuse screen: Denies threats or abuse. Denies injuries from another. Nutritional screening: No deficits noted. Tuberculosis screening: No symptoms or risk factors identified. Assessment: 21:13 Reassessment: Patient and/or family updated on plan of care and expected duration. Pain br2 level reassessed. Patient is alert, oriented x 3, equal unlabored respirations, skin warm/dry/pink. General: Appears in no apparent distress. comfortable, Behavior is calm, cooperative. Pain: Complains of pain in groin Pain does not radiate. Pain currently is 2 out of 10 on a pain scale. Pain began 1 day ago. Neuro: [place] Agitation-Sedation Scale (RASS): 0 - Alert and Calm Level of Consciousness is awake, alert, obeys commands, Oriented to person, place, time, situation. Cardiovascular: Capillary refill < 3 seconds. Respiratory: Airway is patent Respiratory effort is even, unlabored. GI: Abd is soft Abdomen is tender to palpation in suprapubic area. : No signs and/or symptoms were reported regarding the genitourinary system. EENT: No signs and/or symptoms were reported regarding the EENT system. Derm: No signs and/or symptoms reported regarding the dermatologic system. Musculoskeletal: No signs and/or symptoms reported regarding the musculoskeletal system. Capillary refill < 3 seconds, Range of motion: intact in all extremities. 22:30 Reassessment: No changes from previously documented assessment. Patient and/or family br2 updated on plan of care and expected duration. Pain level reassessed. Patient is alert, oriented x 3, equal unlabored respirations, skin warm/dry/pink. Patient states feeling better. 23:30 Reassessment: No changes from previously documented assessment. Patient and/or family br2 updated on plan of care and expected duration. Pain level reassessed. Patient is alert, oriented x 3, equal unlabored respirations, skin warm/dry/pink. Patient states feeling better. 05/15 00:01 Reassessment: Patient appears in no apparent distress at this time. No changes from vc1 previously documented assessment. Patient and/or family updated on plan of care and expected duration. Pain level reassessed. Patient is alert, oriented x 3, equal unlabored respirations, skin warm/dry/pink. Vital Signs: 05/14 21:00 BP 121 / 91; Pulse 83; Resp 17 S; Temp 98.9(O); Pulse Ox 100% on R/A; Weight 49.9 kg; ha1 Height 5 ft. 6 in. ; 21:17 BP 127 / 82; Pulse 90; Resp 18 S; Temp 97.7(TE); Pulse Ox 100% on R/A; Pain 2/10; br2 22:00 BP 105 / 70; Pulse 79; Resp 14; Pulse Ox 100% ; vc1 05/15 00:00 BP 109 / 73; Pulse 69; Resp 16; Pulse Ox 100% ; vc1 01:02 BP 114 / 72; Pulse 83; Resp 16; Pulse Ox 100% ; vc1 05/14 21:00 Body Mass Index 17.75 (49.90 kg, 167.64 cm) ha1 21:17 Pain Scale: Adult br2 [place] Coma Score: 19:15 Eye Response: spontaneous(4). Motor Response: obeys commands(6). Verbal Response: sp4 oriented(5). Total: 15. ED Course: 05/14 20:55 Patient arrived in ED. [id number] 20:56 Jacky Dow MD is Attending Physician. sp4 21:09 Catherine Moran, RN is Primary Nurse. br2 21:10 Triage completed. ha1 21:17 Patient has correct armband on for positive identification. Placed in gown. Bed in low br2 position. Call light in reach. Side rails up X 1. Provided Education on: PLAN OF CARE. 21:28 CBC with Diff Sent. br2 21:28 CMP Sent. br2 21:28 Urinalysis W/Microscopic Sent. br2 21:28 HCG-Quantitative Sent. br2 21:28 Inserted saline lock: 20 gauge in left antecubital area, using aseptic technique. Blood br2 collected. Flushed with 10 mL NS. 21:33 Assist provider with pelvic exam: Set up pelvic tray. Performed by Jacky Dow MD br2 Patient tolerated well. 23:07 US OB Limited In Process Unspecified. EDMS 05/15 01:17 IV discontinued, intact, bleeding controlled, No redness/swelling at site. br2 Administered Medications: 05/14 21:56 Drug: Rocephin - Rocephin (cefTRIAXone) IVPB 1 grams IVPB once over 30 mins; (mix in 50 br2 mL NS) Route: IVPB; Infused Over: 30 mins; Site: left antecubital; 22:30 Follow up: Response: No adverse reaction; IV Status: Completed infusion; IV Intake: [id number] 21:56 Drug: NS 0.9% IV 500 ml IV at bolus continuous Route: IV; Rate: bolus; Site: left br2 antecubital; 22:30 Follow up: Response: No adverse reaction; IV Status: Completed infusion; IV Intake: br2 500ml 21:56 Drug: metroNIDAZOLE PO 500 mg PO once Route: PO; br2 22:30 Follow up: Response: No adverse reaction br2 21:56 Drug: AZITHromycin PO 1 grams PO once Route: PO; br2 22:30 Follow up: Response: No adverse reaction br2 21:56 Drug: Ondansetron PO 4 mg PO once Route: PO; br2 22:30 Follow up: Response: No adverse reaction br2 Medication: 21:15 VIS not applicable for this client. br2 Intake: 22:30 IV: 500ml; Total: 500ml. br2 22:30 IV: 50ml; Total: 550ml. br2 Outcome: 05/15 00:55 Discharge ordered by . sp4 01:15 Discharged to home ambulatory, br2 01:15 Condition: good 01:15 Discharge instructions given to patient, Instructed on discharge instructions, follow up and referral plans. Demonstrated understanding of instructions, follow-up care, medications, Prescriptions given X 2, 01:21 Patient left the ED. br2 Signatures: Dispatcher [employer] EDMS Kya aCrballo [email or web address] Noemi Stokes RN RN vc1 Marcelina Foy RN RN Jacky Reese MD MD sp4 Catherine Moran RN RN br2
--- NOTE | 2024-05-15 00:57 | EDPHYS ---
Physician Documentation [facility] Name: Yasmin Velez Age: 23 yrs Sex: Female : 2000 Arrival Date: 05/14/2024 Time: 20:53 Bed 7 Private MD: ED Physician Jacky Dow HPI: 05/14 20:56 This 23 yrs old Other Race Female presents to ER via Unassigned with complaints of 9 sp4 WKS GESTATION, Vaginal Discharge, Pelvic Pain. 05/15 19:15 23-year-old female at 9 weeks 0 days EGA by LMP presents with complaint of sp4 acute yellowish vaginal discharge and pelvic discomfort. . Historical: - Allergies: 05/14 21:00 No Known Allergies; ha1 - Home Meds: 21:00 Lexapro 5 mg Oral tab 1 tab once daily [Active]; ha1 - PMHx: 21:00 Anxiety; depressive disorder; tension MOONEY; ha1 - Immunization history:: Adult Immunizations up to date. - Infectious Disease History:: Denies. - Social history:: Smoking status: Patient denies any tobacco usage or history of. - Family history:: not pertinent. ROS: 05/15 19:15 Constitutional: Negative for fever, chills, and weight loss, positive vaginal discharge sp4 and pelvic discomfort All other systems are negative, Exam: 19:15 Constitutional: This is a well developed, well nourished patient who is awake, alert, sp4 and in no acute distress. Head/Face: Normocephalic, atraumatic. Eyes: Pupils equal round and reactive to light, extra-ocular motions intact. Lids and lashes normal. Conjunctiva and sclera are not injected. Cornea within normal limits. Periorbital areas with no swelling, redness, or edema. ENT: Nares patent. No nasal discharge, no septal abnormalities noted. Tympanic membranes are normal and external auditory canals are clear. Oropharynx with no redness, swelling, or masses, exudates, or evidence of obstruction, uvula midline. Mucous membranes moist. Neck: Trachea midline, no thyromegaly or masses palpated, and no cervical lymphadenopathy. Supple, full range of motion without nuchal rigidity, or vertebral point tenderness. Chest/axilla: Normal chest wall appearance and motion. Nontender with no deformity. No lesions are appreciated. Cardiovascular: Regular rate and rhythm with a normal S1 and S2. No gallops, murmurs, or rubs. Normal PMI, no JVD. No pulse deficits. Respiratory: Lungs have equal breath sounds bilaterally, clear to auscultation and percussion. No rales, rhonchi or wheezes noted. No increased work of breathing, no retractions or nasal flaring. Abdomen/GI: Soft, with normal bowel sounds. No distension or tympany. No guarding or rebound. No evidence of tenderness throughout. Back: No spinal tenderness. No costovertebral tenderness. Pelvic Exam: Normal external genitalia. Speculum exam with closed cervical os, positive for cervical discharge which appears to be purulent. Small amount of yellow purulent vaginal discharge. Exam consistent with acute cervicitis Skin: Warm, dry with normal turgor. Normal color with no rashes, no lesions, and no evidence of cellulitis. MS/ Extremity: Pulses equal, no cyanosis. Neurovascular intact. Full, normal range of motion. Neuro: Awake and alert, GCS 15, oriented to person, place, time, and situation. Cranial nerves II-XII grossly intact. Motor strength 5/5 in all extremities. Sensory grossly intact. Psych: Awake, alert, with orientation to person, place and time. Behavior, mood, and affect are within normal limits Vital Signs: 05/14 21:00 BP 121 / 91; Pulse 83; Resp 17 S; Temp 98.9(O); Pulse Ox 100% on R/A; Weight 49.9 kg; ha1 Height 5 ft. 6 in. ; 21:17 BP 127 / 82; Pulse 90; Resp 18 S; Temp 97.7(TE); Pulse Ox 100% on R/A; Pain 2/10; br2 22:00 BP 105 / 70; Pulse 79; Resp 14; Pulse Ox 100% ; vc1 05/15 00:00 BP 109 / 73; Pulse 69; Resp 16; Pulse Ox 100% ; vc1 01:02 BP 114 / 72; Pulse 83; Resp 16; Pulse Ox 100% ; vc1 05/14 21:00 Body Mass Index 17.75 (49.90 kg, 167.64 cm) ha1 21:17 Pain Scale: Adult br2 [place] Coma Score: 19:15 Eye Response: spontaneous(4). Motor Response: obeys commands(6). Verbal Response: sp4 oriented(5). Total: 15. MDM: 05/14 20:56 Medical Screening Exam initiated sp4 05/15 00:52 ED course: EXAM: US , Limited CLINICAL HISTORY: Pelvic pain. TECHNIQUE: sp4 Real-time limited ultrasound of the maternal uterus with image documentation. COMPARISON: No relevant prior studies available. FINDINGS: Fetus: Single intrauterine gestational sac. Mean sac diameter measures 32.9 mm corresponding to an estimated gestational age of 8 weeks 3 days. The crown-rump length measures 22.3 mm corresponding to an estimated gestational age of 8 weeks 6 days. A small yolk sac is present. cardiac activity measures 184 BPM. Small crescentic hypoechoic area adjacent to the gestational sac measuring 6 x 5 x 7 mm. Uterus: The uterus is anteverted and measures 11.2 x 5.7 x 8.5 cm. Adnexa: Right and left ovarian measurements are 3.6 x 1.6 x 1.6 cm and 3.1 x 2.2 x 1.2 cm, respectively. IMPRESSION: 1. Single live intrauterine gestation. Small subchorionic hemorrhage. 2. Estimated gestational age by ultrasound is 8 weeks 5 days. 3. Estimated due date by ultrasound is 12/19/2024. . 19:18 Differential diagnosis: lo infection, cervicitis, dysfunctional uterine bleeding, sp4 postcoital bleeding. Data reviewed: vital signs, nurses notes, lab test result(s), radiologic studies, ultrasound. Consideration of Admission/Observation Escalation of care including admission/observation considered. ED course: Will for discharge home with p.o. cephalexin and Flagyl. . 05/14 20:56 Order name: HCG-Quantitative; Complete Time: 22:25 sp4 05/14 20:56 Order name: Urinalysis W/Microscopic; Complete Time: 22:25 sp4 05/14 21:14 Order name: CBC with Diff; Complete Time: 22:25 sp4 05/14 21:14 Order name: CMP; Complete Time: 22:25 sp4 05/14 22:26 Order name: US OB Limited sp4 05/14 20:56 Order name: Pelvic Exam Setup; Complete Time: 21:15 sp4 05/14 21:14 Order name: IV Saline Lock; Complete Time: 21:28 sp4 05/14 21:14 Order name: Labs collected and sent; Complete Time: 21:28 sp4 Administered Medications: 05/14 21:56 Drug: Rocephin - Rocephin (cefTRIAXone) IVPB 1 grams IVPB once over 30 mins; (mix in 50 br2 mL NS) Route: IVPB; Infused Over: 30 mins; Site: left antecubital; 22:30 Follow up: Response: No adverse reaction; IV Status: Completed infusion; IV Intake: [id number] 21:56 Drug: NS 0.9% IV 500 ml IV at bolus continuous Route: IV; Rate: bolus; Site: left br2 antecubital; 22:30 Follow up: Response: No adverse reaction; IV Status: Completed infusion; IV Intake: br2 500ml 21:56 Drug: metroNIDAZOLE PO 500 mg PO once Route: PO; br2 22:30 Follow up: Response: No adverse reaction br2 21:56 Drug: AZITHromycin PO 1 grams PO once Route: PO; br2 22:30 Follow up: Response: No adverse reaction br2 21:56 Drug: Ondansetron PO 4 mg PO once Route: PO; br2 22:30 Follow up: Response: No adverse reaction br2 Disposition: 05/15 19:18 Chart complete. sp4 Disposition Summary: 05/15/24 00:55 Discharge Ordered Notes: Location: Home sp4 Problem: new sp4 Symptoms: have improved sp4 Condition: Stable sp4 Diagnosis - at 8 weeks 5 days EGA, Acute cervicitis, vaginal discharge in sp4 Followup: sp4 - With: Private Physician - When: 7 - 10 days - Reason: Recheck today's complaints Discharge Instructions: - Discharge Summary Sheet sp4 - Cervicitis, [id number] sp4 Forms: - Patient Portal Instructions sp4 Prescriptions: - Cephalexin 500 mg Oral Capsule - take 1 capsule ORAL route every 12 hours for 10 days; 20 capsule; Refills: 0, sp4 Product Selection Permitted - Flagyl 500 mg Oral tablet - take 1 tablet ORAL route every 12 hours for 3 days; 6 tablet; Refills: 0, sp4 Product Selection Permitted Signatures: Dispatcher [facility] Marcelina Darby RN RN ha1 Jacky Dow MD MD sp4 Catherine Moran RN RN br2
[2024-05-15 07:34] VITALS: O2SAT 100
[2024-05-15 07:40] VITALS: TEMP 97.7
[2024-05-15 07:55] VITALS: BP 114/72
== END 2024-05-15 01:21 | disposition home or self-care (01) ==
LOC: ER 20:53
DX: O23.511 Infections of cervix in pregnancy, first trimester (principal); O99.341 Other mental disorders complicating pregnancy, first trimester; F32.A Depression, unspecified; Z3A.08 8 weeks gestation of pregnancy
CPT/HCPCS: 96365; 85025; 81001; 36415; 84702; 80053; 76815; 99284; Q0162; J7040; J0696

== ENCOUNTER 2024-09-09 14:36 | Emergency (ER) | payer OTHER ==
--- OUTSIDE RECORDS SUMMARY | 2024-09-09 14:42 | XMS REPORT | Continuity of Care Document ---
Author Name Unknown Address [address] [facility] [address] [place] [address] [facility] thconnect Address [address] [facility] [address] [place] [address] Care Team Providers [facility] Nurse Practitioner Name Role Phone [place] ELIO, Mary Primary Care Physician Martha Hooper Attending Clinician Unavailable Isa De La Cruz MD Attending Clinician [phone] Ade Trammell Attending Clinician 1, [facility] Attending Clinician UnavailGloria Valadez MD Attending Clinician [phone] Doctor Unassigned, [place] Attending Clinician U navailable CRISTINE JORDAN Attending Clinician Unavailable CRISTINE JORDAN Attending Clinician Unavailable Cristine Melendrez Attending Clinician [phone] DEVANG NICOLE Attending Clinician Unavailable Devang Nicole MD Attending Clinician [phone] Skylar Parekh RN Attending Clinician Unavailable Warren Bloom Attending Clinician [phone] WARREN JOY Attending Clinician Unavailable CRISTINE JORDAN Admitting Clinician Unavailable Payers Payer Name Policy Type Policy Number Effective Date Expirati on Date Source Problems Condition Name Condition Details Condition Category Status Onset Date Resolution Date Last Treatment Date Treating Clinician Comments Source Irregular menstrual cycle Irregular menstrual cycle Disease Active 08-20 00:00: 00 [facility] Palpitatio ns Palpitatio ns Disease Active 08-20 00:00: 00 [facility] No known active problems No known active problems Disease [facility] Allergies, Adverse Reactions, Alerts Allergy Name Allergy Type Status Severity Reaction(s) Onset Date Inactive Date Treating Clinician Comments Source NO KNOWN ALLERGIE S Drug Class Active [facility] Social History Social Habit Start Date Stop Date Quantity Comments Source ASSERTION 2024-03-26 00:00:00 [facility] History of Tobacco Use [facility] Sex Assigned At [facility] Exposure to SARS-CoV-2 (event) Not sure [facility] Alcoholic beverage intake 2024-09-01 00:00:00 2024-09-01 00:00:00 Ex-drinker (finding) [facility] Tobacco use and exposure 2024-08-20 00:00:00 2024-08-20 00:00:00 Smokeless tobacco non-user [facility] History of Social function 2024-06-10 00:00:00 2024-06-10 00:00:00 [facility] Smoking Status Start Date Stop Date Source Never smoked tobacco [facility] Tobacco smoking consumption unknown [facility] Medications Ordered Medication Name Filled Medication Name Start Date Stop Date Current Medication? Ordering Clinician Indication Dosage Frequency Signature (SIG) Comments Components Source Nitrofurant oin&Nit. Macrocryst 100 mg capsule 08-20 00:00: 00 08-28 05:59 :00 Yes [id number] 100mg Take 1 capsule by mouth in the morning and 1 capsule in the evening. Do all this for 7 days. [facility] famotidine 40 mg tablet 08-04 00:00: 00 11-03 04:59 :00 Yes [id number] 40mg Take 1 tablet by mouth in the morning for 90 days. [facility] metoclopram rikki HCl 10 mg tablet 07-29 00:00: 00 Yes [id number] 10mg Take 1 tablet by mouth every 8 (eight) hours as needed for Nausea and Vomiting (N/V). [facility] ondansetron 4 mg disintegrat ing tablet 07-29 00:00: 08-29 05:59 :00 Yes [id number] 4mg Take 1 tablet by mouth every 8 (eight) hours as needed for Nausea and Vomiting (N/V) for up to 30 days. [facility] metoclopram rikki HCl 10 mg tablet 2023-07 00:00: 00 07-11 05:59 :00 No [id number] 10mg Take 1 tablet by mouth every 8 (eight) hours as needed for Nausea and Vomiting (N/V) for up to 30 days. [facility] promethazin e 25 mg tablet 2023-07 00:00: 00 Yes 1mg Ruben Gurwinder [facility] ondansetron 8 mg disintegrat ing tablet 2023-07 0-10 00:00: 00 Yes 1mg Ruben Gurwinder [facility] ondansetron 8 mg disintegrat ing tablet 2023-0710 00:00: 00 Yes 8mg Take 1 tablet by mouth every 8 (eight) hours. [facility] 28 mg iron- 800 mcg Tab 2023-07 0-04 00:00: 00 Yes 1{tbl} Take 1 tablet by mouth in the morning. [facility] promethazin e 12.5 mg tablet 04-15 00:00: 00 Yes 1mg Ruben Gurwinder [facility] proMETHazin e 12.5 mg tablet 04-15 00:00: 00 06-10 00:00 :00 No 12.5mg Take 1 tablet by mouth every 6 (six) hours. [facility] cefpodoxime 200 mg tablet 04-13 00:00: 00 08-04 00:00 :00 No TAKE 1 TABLET BY MOUTH EVERY 12 HOURS WITH FOOD [facility] TAKE 2 TABLETS BY MOUTH ONE TIME [...]
D uration of Therapy: Other (see Comments) [facility] amoxicillin 500 mg capsule 08-15 00:00: 00 Yes [id number] 500mg Take 1 capsule by mouth 3 (three) times daily. [facility] ibuprofen 800 mg tablet 08-15 00:00: 00 06-10 00:00 :00 No [id number] 800mg Take 1 tablet by mouth every 8 (eight) hours as needed for Pain (scale 4-6) or Temp > 38.5 C. [facility] NaCl 0.9% (NS) bolus infusion 1,000 mL 2019-07 04:45: 00 05-05 06:50 :00 No 1000mL at 999 mL/hr, 1,000 mL, IV Infusion, ONCE, 1 dose, [facility] 05/04/20 at 2345, [facility] Sprintec 28 Sprintec 28 03-31 00:00: 00 Yes Christina Jalloha 1 tablet [facility] Sprintec 28 0.25-35 MG-MCG Sprintec 28 0.25-35 MG-MCG 03-31 00:00: 00 No 1{table t} QD Sprintec 28 0.25-35 MG-MCG Sprintec 28 0.25-35 MG-MCG Sprintec 28 0.25-35 MG-MCG 03-31 00:00: 00 No 1{table t} QD Sprintec 28 0.25-35 MG-MCG medroxyprog esterone ac medroxyprog esterone ac 01-05 00:00: 00 No 150mg [facility] medroxyprog esterone ac medroxyprog esterone ac 12-30 00:00: 00 No 150mg [facility] No known medications No Un josefina [facility] Multivitami n Multivitami n No Multivitam in Multivitami n Multivitami n No Multivitam in Vital Signs Vital Name Observation Time Observation Value Comments S ource Systolic blood pressure 2024-09-01 17:31:00 104 mm[Hg] [facility] Diastolic blood pressure 2024-09-01 17:31:00 70 mm[Hg] [facility] Heart rate 2024-09-01 17:31:00 72 /min [facility] Body temperature 2024-09-01 17:31:00 36.11 Jigna [facility] Body height 2024-09-01 17:31:00 167.6 cm [facility] Body weight 2024-09-01 17:31:00 54.84 kg [facility] BMI 2024-09-01 17:31:00 19.51 kg/m2 [facility] Systolic blood pressure 2024-08-20 15:09:00 122 mm[Hg] [facility] Diastolic blood pressure 2024-08-20 15:09:00 83 mm[Hg] [facility] Heart rate 2024-08-20 15:09:00 102 /min [facility] Body height 2024-08-20 15:09:00 167.6 cm [facility] Body weight 2024-08-20 15:09:00 53.887 kg [facility] BMI 2024-08-20 15:09:00 19.17 kg/m2 [facility] Systolic blood pressure 2024-08-04 16:32:00 107 mm[Hg] [facility] Diastolic blood pressure 2024-08-04 16:32:00 67 mm[Hg] [facility] Heart rate 2024-08-04 16:32:00 65 /min [facility] Body temperature 2024-08-04 16:32:00 36.39 Jigna [facility] Body height 2024-08-04 16:32:00 167.6 cm [facility] Body weight 2024-08-04 16:32:00 52.254 kg [facility] BMI 2024-08-04 16:32:00 18.59 kg/m2 [facility] Systolic blood pressure 2024-07-07 15:36:00 125 mm[Hg] [place] [facility] Diastolic blood pressure 2024-07-07 15:36:00 73 mm[Hg] [facility] Heart rate 2024-07-07 15:36:00 65 /min Unive [facility] Body temperature 2024-07-07 15:36:00 36.5 Jigna [facility] Body height 2024-07-07 15:36:00 167.6 cm [facility] Body weight 2024-07-07 15:36:00 48.127 kg [facility] BMI 2024-07-07 15:36:00 17.12 kg/m2 Univ [facility] Systolic blood pressure 2024-06-18 03:37:00 115 mm[Hg] [facility] Diastolic blood pressure 2024-06-18 03:37:00 80 mm[Hg] [facility] Heart rate 2024-06-18 03:37:00 103 /min Unive [facility] Body temperature 2024-06-18 03:37:00 36.78 Jigna [facility] Respiratory rate 2024-06-18 03:37:00 18 /min [facility] Body height 2024-06-18 03:37:00 167.6 cm Univ [facility] Body weight 2024-06-18 03:37:00 46.72 kg [facility] BMI 2024-06-18 03:37:00 16.62 kg/m2 [facility] Oxygen saturation in Arterial blood by Pulse oximetry 2024-06-18 03:37:00 98 /min [facility] Systolic blood pressure 2024-06-10 15:05:00 106 mm[Hg] [facility] Diastolic blood pressure 2024-06-10 15:05:00 73 mm[Hg] [facility] Heart rate 2024-06-10 15:05:00 106 /min [facility] Body temperature 2024-06-10 15:05:00 36.72 Jigna [facility] Body height 2024-06-10 15:05:00 167.6 cm [facility] Body weight 2024-06-10 15:05:00 54.432 kg [facility] BMI 2024-06-10 15:05:00 19.37 kg/m2 [facility] Systolic blood pressure 2021-08-15 06:21:00 116 mm[Hg] [facility] Diastolic blood pressure 2021-08-15 06:21:00 69 mm[Hg] [facility] Heart rate 2021-08-15 06:21:00 99 /min [facility] Body temperature 2021-08-15 06:21:00 37.33 Jigna [facility] Respiratory rate 2021-08-15 06:21:00 18 /min [facility] Body height 2021-08-15 06:21:00 167.6 cm [facility] Body weight 2021-08-15 06:21:00 54.432 kg [facility] BMI 2021-08-15 06:21:00 19.37 kg/m2 [facility] Oxygen saturation in Arterial blood by Pulse oximetry 2021-08-15 06:21:00 98 /min [facility] height 2020-07-05 11:20:00 66 [in_i] Commo n [facility] weight 2020-07-05 11:20:00 108 [lb_av] Comm on [facility] temperature 2020-07-05 11:20:00 97.0 [degF] Com mon [facility] bmi 2020-07-05 11:20:00 17.43 kg/m2 Comm on [facility] oximetry 2020-07-05 11:20:00 96 % Commo n [facility] respiratory rate 2020-07-05 11:20:00 16 /min Common [facility] blood pressure systolic 2020-07-05 11:20:00 110 mm[Hg] [facility] blood pressure diastolic 2020-07-05 11:20:00 63 mm[Hg] Common [facility] height 2020-06-21 14:00:00 66 [in_i] Commo n [facility] weight 2020-06-21 14:00:00 107.4 [lb_av] Co mmon [facility] temperature 2020-06-21 14:00:00 97.1 [degF] Com mon [facility] bmi 2020-06-21 14:00:00 17.33 kg/m2 Comm on [facility] oximetry 2020-06-21 14:00:00 98 % Commo n [facility] respiratory rate 2020-06-21 14:00:00 16 /min [facility] blood pressure systolic 2020-06-21 14:00:00 108 mm[Hg] [facility] blood pressure diastolic 2020-06-21 14:00:00 61 mm[Hg] [facility] Systolic blood pressure 2020-05-05 05:44:00 113 mm[Hg] [facility] Diastolic blood pressure 2020-05-05 05:44:00 71 mm[Hg] [facility] Heart rate 2020-05-05 05:44:00 88 /min [facility] Respiratory rate 2020-05-05 05:44:00 22 /min [facility] Oxygen saturation in Arterial blood by Pulse oximetry 2020-05-05 05:44:00 98 /min [facility] Body temperature 2020-05-05 04:21:00 37.22 Jigna [facility] Body height 2020-05-05 04:21:00 165.1 cm [facility] Body weight 2020-05-05 04:21:00 50.803 kg [facility] BMI 2020-05-05 04:21:00 18.64 kg/m2 [facility] Systolic blood pressure 2020-05-05 05:44:00 113 mm[Hg] [facility] Diastolic blood pressure 2020-05-05 05:44:00 71 mm[Hg] [facility] Heart rate 2020-05-05 05:44:00 88 /min [facility] Respiratory rate 2020-05-05 05:44:00 22 /min [facility] Oxygen saturation in Arterial blood by Pulse oximetry 2020-05-05 05:44:00 98 /min [facility] Body temperature 2020-05-05 04:21:00 37.22 [facility] Body height 2020-05-05 04:21:00 165.1 cm [facility] Body weight 2020-05-05 04:21:00 50.803 kg [facility] BMI 2020-05-05 04:21:00 18.64 kg/m2 [facility] BP Systolic 2024-05-29 12:27:00 109 mm[Hg] Step hen F Sadi BP Diastolic 2024-05-29 12:27:00 72 mm[Hg] [place] phen F Sadi Weight Measured 2024-05-29 12:27:00 103.40 pounds Ruben F Sadi Height Measured 2024-05-29 12:27:00 66.00 inches Ruben F Sadi Body Temperature 2024-05-29 12:27:00 97.80 degrees Ruben F Sadi Heart Rate 2024-05-29 12:27:00 113.00 /min Step hen F Sadi Respiratory Rate 2024-05-29 12:27:00 18.00 /min Ruben F Sadi Respiratory Rate 2024-04-29 11:08:00 19.00 /min Ruben F Sadi BP Systolic 2024-04-29 11:08:00 110 mm[Hg] Step hen F Sadi BP Diastolic 2024-04-29 11:08:00 65 mm[Hg] [place] phen F Sadi Weight Measured 2024-04-29 11:08:00 107.60 pounds Ruben F Sadi Height Measured 2024-04-29 11:08:00 66.00 inches Ruben F Sadi Body Temperature 2024-04-29 11:08:00 97.80 degrees Ruben F Sadi Heart Rate 2024-04-29 11:08:00 103.00 /min Step hen F Sadi BP Systolic 2024-04-15 10:24:00 121 mm[Hg] Step hen F Sadi BP Diastolic 2024-04-15 10:24:00 76 mm[Hg] [place] phen F Sadi Weight Measured 2024-04-15 10:24:00 109.00 pounds Ruben F Sadi Height Measured 2024-04-15 10:24:00 66.00 inches Ruben [facility] Body Temperature 2024-04-15 10:24:00 98.30 degrees Ruben [facility] Heart Rate 2024-04-15 10:24:00 89.00 /min Kindra en F Sadi Respiratory Rate 2024-04-15 10:24:00 Ruben [facility] Procedures Procedure Date / Time Performed Performing Clinician Source POCT URINALYSIS AUTO 2024-09-01 00:00:00 Daron De La Cruz [facility] POCT URINALYSIS AUTO 2024-08-20 15:57:00 Daron De La Cruz [facility] SECOND AND THIRD TRIMESTER ULTRASOUND 2024-08-06 14:29:00 Isa De La Cruz [facility] POCT URINALYSIS AUTO 2024-07-07 17:20:00 Daron De La Cruz [facility] <14 WEEKS US LIMITED 2024-06-10 17:02:57 Isa De La Cruz [facility] POCT URINALYSIS AUTO 2024-06-10 00:00:00 Daron De La Cruz [facility] RAPID STREP SCREEN FOR GROUP A 2021-08-15 06:27:00 Devang Nicole [facility] NOTICE OF PRIVACY PRACTICES 2021-08-15 06:12:48 Doctor Unassigned, [place] [facility] CONSENT/REFUSAL FOR DIAGNOSIS AND TREATMENT 2021-08-15 06:11:53 Doctor Unassigned, [place] [facility] CONSENT/REFUSAL FOR DIAGNOSIS AND TREATMENT 2021-08-15 06:11:52 Doctor Unassigned, [place] [facility] THYROID STIMULATING HORMONE 2020-05-05 05:18:00 Warren Joy [facility] COMP. METABOLIC PANEL ([id number]) 2020-05-05 05:18:00 Warren Joy [facility] CBC WITH DIFF 2020-05-05 05:18:00 [facility] 2020-05-05 04:43:00 Lenard Hamlin [facility] COVID-19 (ID NOW RAPID TESTING) 2020-05-05 04:43:00 Warren Joy [facility] POCT TEST 2020-05-05 04:42:00 Lenard Hamlin [facility] EKG-12 LEAD 2020-05-05 04:26:59 Lenard Hamlin [facility] NOTICE OF PRIVACY PRACTICES 2020-05-05 04:14:09 Doctor Unassigned, [place] [facility] CONSENT/REFUSAL FOR DIAGNOSIS AND TREATMENT 2020-05-05 04:13:39 Doctor Unassigned, [place] [facility] Encounters Start Date/Time End Date/Time Encounter Type Admission Type Attending [facility] Care Facility Care Department Encounter ID Source 2023-01-10 08:50:[address] [facility] [id number] [facility] 2023-01-07 13:34:[address] [facility] [id number] [facility] 2021-08-22 12:08:19 Outpatient Martha Hooper [facility] [id number] [facility] 2021-08-22 12:04:[address] [facility] [id number] [facility] 2024-09-01 11:30:00 2024-09-01 11:46:07 Routine Visit Isa De La Cruz [facility] 1.2.840.114 350.1.13.10 4.2.7.2.686 [id number] [facility] 2024-08-19 00:00:00 2024-08-26 11:30:38 Patient Secure Msg Isa De La Cruz [facility] OD 1.2.840.114 350.1.13.10 4.2.7.2.686 [id number] [facility] 2024-08-20 09:00:00 2024-08-20 09:52:08 Routine Visit Ade Glover [facility] BU[facility] 1.2.840.114 350.1.13.10 4.2.7.2.686 [id number] [facility] 2024-08-20 00:00:00 2024-08-20 08:26:29 Telephone Isa De La Cruz [facility] OD 1.2.840.114 350.1.13.10 4.2.7.2.686 [id number] [facility] 2024-08-06 08:00:00 2024-08-06 08:36:43 Medical Record Librarians [facility] 1[facility] Gloria Davis [facility] HEALTH PROGRAM MANAGER [facility] 1.2.840.114 350.1.13.10 4.2.7.2.686 [id number] [facility] 2024-08-04 10:30:00 2024-08-04 10:55:52 Routine Visit Isa De La Cruz [facility] OD 1.2.840.114 350.1.13.10 4.2.7.2.686 [id number] [facility] 2024-07-27 00:00:00 2024-07-29 15:18:06 Patient Secure Msg Isa De La Cruz [facility] OD 1.2.840.114 350.1.13.10 4.2.7.2.686 [id number] [facility] 2024-06-18 00:00:00 2024-07-24 18:19:08 Patient Secure Msg Isa De La Cruz [facility] OD 1.2.840.114 350.1.13.10 4.2.7.2.686 [id number] [facility] 2024-07-07 09:30:00 2024-07-07 10:14:24 Routine Visit Isa De La Cruz [facility] OD 1.2.840.114 350.1.13.10 4.2.7.2.686 [id number] [facility] 2024-05-31 00:00:00 2024-07-03 18:22:09 Patient Secure Msg Doctor Unassigned, [place] Doctor Unassigned, [place] [facility] OD 1.2.840.114 350.1.13.10 4.2.7.2.686 [id number] [facility] 2024-06-21 00:00:00 2024-06-21 07:59:10 Telephone Isa De La Cruz [facility] OD 1.2.840.114 350.1.13.10 4.2.7.2.686 [id number] [facility] 2024-06-18 00:00:00 2024-06-18 08:41:05 Telephone Isa De La Cruz [facility] OD 1.2.840.114 350.1.13.10 4.2.7.2.686 [id number] [facility] 2024-06-17 21:40:00 2024-06-17 22:34:00 Emergency X CRISTINE JORDAN SALMIN [facility] ERT [id number] [facility] 2024-06-17 21:40:00 2024-06-17 22:34:00 Emergency Cristine Jordan [facility] 1.2.840.114 350.1.13.10 4.2.7.2.686 [id number] [facility] 2024-06-10 00:00:00 2024-06-10 14:09:43 Telephone Isa De La Cruz [facility] 1.2.840.114 350.1.13.10 4.2.7.2.686 [id number] [facility] 2024-06-10 09:00:00 2024-06-10 10:05:38 Office Visit Isa De La Cruz [facility] 1.2.840.114 350.1.13.10 4.2.7.2.686 [id number] [facility] 2024-06-06 11:15:03 2024-06-06 11:15:03 Outpatient SFA ROSARIO [id number] Ruben F Sadi 2024-05-31 00:00:00 2024-05-31 10:49:05 Telephone Isa De La Cruz [facility] OD 1.2.840.114 350.1.13.10 4.2.7.2.686 [id number] [facility] 2024-05-29 12:21:56 2024-05-29 12:21:56 Outpatient SFA ROSARIO [id number] Ruben Gurwinder Sadi 2024-05-29 00:00:00 2024-05-29 00:00:00 Outpatient Visit SFA [id number] Ruben Avit[facility] 2024-05-29 00:00:00 2024-05-29 00:00:00 Outpatient Visit [facility] [id number] Ruben [facility] 2024-04-19 00:00:00 2024-05-22 18:24:32 Patient Secure Msg Doctor Unassigned, [place] Doctor Unassigned, [place] [facility] [place] 1..840.114 350.1.13.10 4.2.7.2.686 [id number] [facility] 2024-05-13 08:42:08 2024-05-13 08:42:08 Outpatient SFA [facility] [id number] Ruben Avitia 2024-04-29 10:59:49 2024-04-29 10:59:49 Outpatient SFA [facility] [id number] Ruben [facility]itia 2024-04-29 00:00:00 2024-04-29 00:00:00 Outpatient Visit [facility] [id number] Ruben [facility] 2023-01-07 00:00:00 2023-01-07 00:00:00 (TEL) STLMLC STLMLC [id number] [facility] 2021-08-15 00:29:00 2021-08-15 01:56:00 Emergency X DEVANG NICOLE [facility] ERT [id number] [facility] 2021-08-15 00:29:00 2021-08-15 01:56:00 Emergency Devang Nicole [facility] 1.2.840.114 350.1.13.10 4.2.7.2.686 [id number] [facility] 2021-08-15 00:00:00 2021-08-15 00:00:00 Letter (Out) Lanny Parekhh [facility] 1.2.840.114 350.1.13.10 4.2.7.2.686 [id number] [facility] 2020-07-05 00:00:00 2020-07-05 00:00:00 OFFICE VISIT EST PT LEVEL 3 STLMLC STLMLC [id number] [facility] 2020-06-21 00:00:00 2020-06-21 00:00:00 OFFICE VISIT NEW PT LEVEL 3 STLMLC STLMLC [id number] [facility] 2020-05-04 23:28:00 2020-05-05 02:26:00 Emergency Warren Joy [facility] 1.2.840.114 350.1.13.10 4.2.7.2.686 [id number] [facility] 2020-05-04 23:28:00 2020-05-05 02:26:00 Emergency [place], Warren [facility] 1.2.840.114 350.1.13.10 4.2.7.2.686 [id number] 2020-05-04 23:28:00 2020-05-04 23:28:00 Emergency X BENITA WARREN [facility] ERT [id number] [facility] 2018-03-31 10:30:00 2018-03-31 10:30:00 [facility] [id number] [facility] 2018-01-05 10:00:00 2018-01-05 10:00:00 [facility]patient [facility] [id number] [facility] 2017-12-30 09:30:00 2017-12-30 09:30:00 Outpatient [facility] [id number] [facility] 2017-12-04 14:37:00 2017-12-04 14:37:00 Outpatient [facility] [place], [place] [id number] [facility] 2017-10-23 10:15:00 2017-10-23 10:15:00 Outpatient [facility] [id number] [facility] Results Test Description Test Time Test Comments Results Result Co mments Source [facility] Urinalysis, [id number] 15:58:00 * Test Item Value Reference Range Interpretation Comme nts POCT U SP GRAV (test code = 3255) POCT PH U (test code = 3254) 6.5 mg/dl 5-8 POCT U LEUK EST (test code = 3263) neg Negative - Negative POCT U NIT (test code = 3262) neg Negative - Negati ve POCT U PROT (test code = 3259) neg Negative - Negat tyree POCT U GLU (test code = 3256) neg Negative - Negati ve POCT U KETONE (test code = 3258) neg Negative - Negative POCT U UROBILI (test code = 3260) POCT U BILI (test code = 3261) neg Negative - Negat tyree POCT U BLD (test code = 3257) neg Negative - Negati ve POCT U COLOR (test code = 3266) POCT U APPEAR (test code = 3267) [facility] Urinalysis, [id number] 17:20:00 * Test Item Value Reference Range Interpretation Comme nts POCT U SP GRAV (test code = 3255) POCT PH U (test code = 3254) 6.5 mg/dl 5-8 POCT U LEUK EST (test code = 3263) Negative Negative - Negative POCT U NIT (test code = 3262) Negative Negative - Negati ve POCT U PROT (test code = 3259) Negative Negative - Negat tyree POCT U GLU (test code = 3256) Negative Negative - Negati ve POCT U KETONE (test code = 3258) Negative Negative - Negative POCT U UROBILI (test code = 3260) POCT U BILI (test code = 3261) POCT U BLD (test code = 3257) POCT U COLOR (test code = 3266) POCT U APPEAR (test code = 3267) Lab Interpretation (test cod e = 58476-0) [facility], [id number] 16:20:00 * Test Item Value Reference Range Interpretation Comme nts POCT U SP GRAV (test code = 3255) POCT PH U (test code = 3254) 6.5 mg/dl 5-8 POCT U LEUK EST (test code = 3263) neg Negative - Negative POCT U NIT (test code = 3262) neg Negative - Negati ve POCT U PROT (test code = 3259) neg Negative - Negat tyree POCT U GLU (test code = 3256) neg Negative - Negati ve POCT U KETONE (test code = 3258) neg Negative - Negative POCT U UROBILI (test code = 3260) POCT U BILI (test code = 3261) POCT U BLD (test code = 3257) neg Negative - Negati ve POCT U COLOR (test code = 3266) POCT U APPEAR (test code = 3267) Lab Interpretation (test cod e = 57801-5) Normal [facility],QL W/REFL TO [id number] 00:00:00* Test Item Value Reference Range Interpretation Comme nts HCG, TOTAL, QL (test code = 2110-5) POSITIVE Ruben AvitiaDRUG SCREEN, COMPREHENSIVE (URINE)2024-05-04 00:00:00* Test Item Value Reference Range Interpretation Comme nts URINE RESULTS (test code = 16437-8) NO DRUG(S) DETECTED COMMENT (test code = ) DNR Ruben AvitiaABO GROUP AND RH [id number] 00:00:00* Test Item Value Reference Range Interpretation Comme nts ABO GROUP (test code = 883-9) B RH TYPE (test code = 39401-2) RH(D) POSITIVE Ruben AvitiaHCG, TOTAL, [id number] 00:00:00* Test Item Value Reference Range Interpretation Comme nts HCG, TOTAL, QN (test code = 46979-1) 97719 mIU/mL Ruben Purdy AustinCBC (INCLUDES DIFF/PLT)2024-05-04 00:00:00* Test Item Value Reference Range Interpretation Comme nts WHITE BLOOD CELL COUNT (test code = 6690-2) 9.5 Thousand/uL RED BLOOD CELL COUNT (test code = 789-8) 4.68 Million/uL HEMOGLOBIN (test code = 718-7) 14.1 g/dL HEMATOCRIT (test code = 4544-3) 43.3 % MCV (test code = 787-2) 92.5 fL MCH (test code = 785-6) 30.1 pg MCHC (test code = 786-4) 32.6 g/dL RDW (test code = 788-0) 11.9 % PLATELET COUNT (test code = 777-3) 234 Thousand/uL MPV (test code = 776-5) 12.1 fL ABSOLUTE NEUTROPHILS (test code = 751-8) 6403 cells/uL ABSOLUTE BAND NEUTROPHILS (test code = 72906-9) DNR cells/uL ABSOLUTE METAMYELOCYTES (chong t code = 72175-0) DNR cells/uL ABSOLUTE MYELOCYTES (test code = 25120-8) DNR cells/uL ABSOLUTE PROMYELOCYTES (test code = 81953-9) DNR cells/uL ABSOLUTE LYMPHOCYTES (test code = 731-0) 2328 cells/uL ABSOLUTE MONOCYTES (test cod e = 742-7) 675 cells/uL ABSOLUTE EOSINOPHILS (test code = 711-2) 57 cells/uL ABSOLUTE BASOPHILS (test cod e = 704-7) 38 cells/uL ABSOLUTE BLASTS (test code = 01626-8) DNR cells/uL ABSOLUTE NUCLEATED RBC (test code = 84012-0) DNR cells/uL NEUTROPHILS (test code = 770-8) 67.4 % BAND NEUTROPHILS (test code = 764-1) DNR % METAMYELOCYTES (test code = 740-1) DNR % MYELOCYTES (test code = 749-2) DNR % PROMYELOCYTES (test code = 783-1) DNR % LYMPHOCYTES (test code = 736-9) 24.5 % REACTIVE LYMPHOCYTES (test code = 39192-5) DNR % MONOCYTES (test code = 5905-5) 7.1 % EOSINOPHILS (test code = 713-8) 0.6 % BASOPHILS (test code = 706-2) 0.4 % BLASTS (test code = 709-6) DNR % NUCLEATED RBC (test code = 70068-8) DNR /100WBC COMMENT(S) (test code = 8251-1) DNR Ruben AvitiaEXTRA SPECIMEN [ADDED]2024-05-04 00:00:00* Test Item Value Reference Range Interpretation Comme nts SPECIMEN TYPE RECEIVED (test code = 05425-8) Yellow [facility] PCR Media Ruben AvitiaHIV 1/2 ANTIGEN/ANTIBODY,FOURTH GENERATION [id number] 00:00:00* Test Item Value Reference Range Interpretation Comme zoila HIV AG/AB, 4TH GEN (test cod e = 30882-1) NON-REACTIVE Ruben AvitiaRUBELLA ANTIBODY (IGM)2024-05-04 00:00:00* Test Item Value Reference Range Interpretation Comme nts RUBELLA ANTIBODY (IGM) (test code = 5335-5) <20.00 AU/mL Ruben AvitiaCULTURE, URINE, ROUTINE [ADDED]2024-05-04 00:00:00* Test Item Value Reference Range Interpretation Comme nts CULTURE, URINE, ROUTINE (chong t code = 630-4) SEE NOTE Ruben AvitiaVARICELLA ZOSTER VIRUS ANTIBODY (IGG)2024-05-04 00:00:00* Test Item Value Reference Range Interpretation Comme nts VARICELLA ZOSTER VIRUS ANTIB MARCELA (IGG) (test code = 5403-1) 11.30 S/CO Ruben Purdy AustinBV/VAGINITIS PANEL DNA [id number] 00:00:00* Test Item Value Reference Range Interpretation Comme nts TRICHOMONAS: (test code = 6568-0) NOT DETECTED GARDNERELLA: (test code = 6410-5) NOT DETECTED ALBERTO: (test code = 86113-3) NOT DETECTED uRben Purdy AustinRPR (MONITOR) W/REFL [id number] 00:00:00* Test Item Value Reference Range Interpretation Comme nts RPR (MONITOR) W/REFL TITER ( test code = 89304-1) NON-REACTIVE Ruben AvitiaHEPATITIS PANEL, ACUTE W/REFLEX TO [id number] 00:00:00* Test Item Value Reference Range Interpretation Comme nts HEPATITIS A IGM (test code = 64760-4) NON-REACTIVE HEPATITIS B SURFACE ANTIGEN (test code = 5196-1) NON-REACTIVE CONFIRMATION (test code = 7905-3) DNR HEPATITIS B CORE ANTIBODY (I GM) (test code = 85338-2) NON-REACTIVE HEPATITIS C ANTIBODY (test c ode = 40478-1) NON-REACTIVE Ruben AvitiaHEPATITIS PANEL (REFL)2024-05-04 00:00:00* Test Item Value Reference Range Interpretation Comme nts HEPATITIS B SURFACE ANTIGEN (test code = 5196-1) NON-REACTIVE CONFIRMATION (test code = 7905-3) DNR HEPATITIS B SURFACE ANTIBODY QL (test code = 71885-1) REACTIVE HEPATITIS B CORE AB TOTAL (R EFL) (test code = 22689-3) NON-REACTIVE HEPATITIS C ANTIBODY (test c ode = 42468-2) NON-REACTIVE HEPATITIS A AB, TOTAL (REFL) (test code = 41224-5) REACTIVE Ruben Purdy AustinHCG,TOTAL,QL W/REFL TO [id number] 00:00:00* Test Item Value Reference Range Interpretation Comme nts HCG, TOTAL, QL (test code = 2110-5) POSITIVE Ruben AvitiaDRUG SCREEN, COMPREHENSIVE (URINE)2024-05-04 00:00:00* Test Item Value Reference Range Interpretation Comme nts URINE RESULTS (test code = 02932-2) NO DRUG(S) DETECTED COMMENT (test code = ) DNR Ruben AvitiaABO GROUP AND RH [id number] 00:00:00* Test Item Value Reference Range Interpretation Comme nts ABO GROUP (test code = 883-9) B RH TYPE (test code = 26047-6) RH(D) POSITIVE Ruben AvitiaHCG, TOTAL, [id number] 00:00:00* Test Item Value Reference Range Interpretation Comme nts HCG, TOTAL, QN (test code = 18498-1) 77703 mIU/mL Ruben AvitiaCBC (INCLUDES DIFF/PLT)2024-05-04 00:00:00* Test Item Value Reference Range Interpretation Comme nts WHITE BLOOD CELL COUNT (test code = 6690-2) 9.5 Thousand/uL RED BLOOD CELL COUNT (test code = 789-8) 4.68 Million/uL HEMOGLOBIN (test code = 718-7) 14.1 g/dL HEMATOCRIT (test code = 4544-3) 43.3 % MCV (test code = 787-2) 92.5 fL MCH (test code = 785-6) 30.1 pg MCHC (test code = 786-4) 32.6 g/dL RDW (test code = 788-0) 11.9 % PLATELET COUNT (test code = 777-3) 234 Thousand/uL MPV (test code = 776-5) 12.1 fL ABSOLUTE NEUTROPHILS (test code = 751-8) 6403 cells/uL ABSOLUTE BAND NEUTROPHILS (test code = 19193-2) DNR cells/uL ABSOLUTE METAMYELOCYTES (chong t code = 82136-0) DNR cells/uL ABSOLUTE MYELOCYTES (test code = 55165-0) DNR cells/uL ABSOLUTE PROMYELOCYTES (test code = 64252-9) DNR cells/uL ABSOLUTE LYMPHOCYTES (test code = 731-0) 2328 cells/uL ABSOLUTE MONOCYTES (test cod e = 742-7) 675 cells/uL ABSOLUTE EOSINOPHILS (test code = 711-2) 57 cells/uL ABSOLUTE BASOPHILS (test cod e = 704-7) 38 cells/uL ABSOLUTE BLASTS (test code = 72853-9) DNR cells/uL ABSOLUTE NUCLEATED RBC (test code = 99149-7) DNR cells/uL NEUTROPHILS (test code = 770-8) 67.4 % BAND NEUTROPHILS (test code = 764-1) DNR % METAMYELOCYTES (test code = 740-1) DNR % MYELOCYTES (test code = 749-2) DNR % PROMYELOCYTES (test code = 783-1) DNR % LYMPHOCYTES (test code = 736-9) 24.5 % REACTIVE LYMPHOCYTES (test code = 05810-4) DNR % MONOCYTES (test code = 5905-5) 7.1 % EOSINOPHILS (test code = 713-8) 0.6 % BASOPHILS (test code = 706-2) 0.4 % BLASTS (test code = 709-6) DNR % NUCLEATED RBC (test code = 56926-2) DNR /100WBC COMMENT(S) (test code = 8251-1) DNR Ruben AvitiaEXTRA SPECIMEN [ADDED]2024-05-04 00:00:00* Test Item Value Reference Range Interpretation Comme nts SPECIMEN TYPE RECEIVED (test code = 85795-0) Yellow [facility] PCR Media Ruben AvitiaHIV 1/2 ANTIGEN/ANTIBODY,FOURTH GENERATION [id number] 00:00:00* Test Item Value Reference Range Interpretation Comme zoila HIV AG/AB, 4TH GEN (test cod e = 02835-9) NON-REACTIVE Ruben Purdy AustinRUBELLA ANTIBODY (IGM)2024-05-04 00:00:00* Test Item Value Reference Range Interpretation Comme nts RUBELLA ANTIBODY (IGM) (test code = 5335-5) <20.00 AU/mL Ruben Purdy AustinCULTURE, URINE, ROUTINE [ADDED]2024-05-04 00:00:00* Test Item Value Reference Range Interpretation Comme nts CULTURE, URINE, ROUTINE (chong t code = 630-4) SEE NOTE Ruben AvitiaVARICELLA ZOSTER VIRUS ANTIBODY (IGG)2024-05-04 00:00:00* Test Item Value Reference Range Interpretation Comme nts VARICELLA ZOSTER VIRUS ANTIB MARCELA (IGG) (test code = 5403-1) 11.30 S/CO Ruben Purdy AustinBV/VAGINITIS PANEL DNA [id number] 00:00:00* Test Item Value Reference Range Interpretation Comme nts TRICHOMONAS: (test code = 6568-0) NOT DETECTED GARDNERELLA: (test code = 6410-5) NOT DETECTED ALBERTO: (test code = 66383-3) NOT DETECTED Ruben Purdy AustinRPR (MONITOR) W/REFL [id number] 00:00:00* Test Item Value Reference Range Interpretation Comme nts RPR (MONITOR) W/REFL TITER ( test code = 55887-5) NON-REACTIVE Ruben Purdy AustinHEPATITIS PANEL, ACUTE W/REFLEX TO [id number] 00:00:00* Test Item Value Reference Range Interpretation Comme nts HEPATITIS A IGM (test code = 97053-3) NON-REACTIVE HEPATITIS B SURFACE ANTIGEN (test code = 5196-1) NON-REACTIVE CONFIRMATION (test code = 7905-3) DNR HEPATITIS B CORE ANTIBODY (I GM) (test code = 30055-7) NON-REACTIVE HEPATITIS C ANTIBODY (test c ode = 06282-3) NON-REACTIVE Ruben Purdy AustinHEPATITIS PANEL (REFL)2024-05-04 00:00:00* Test Item Value Reference Range Interpretation Comme nts HEPATITIS B SURFACE ANTIGEN (test code = 5196-1) NON-REACTIVE CONFIRMATION (test code = 7905-3) DNR HEPATITIS B SURFACE ANTIBODY QL (test code = 17012-6) REACTIVE HEPATITIS B CORE AB TOTAL (R EFL) (test code = 56345-2) NON-REACTIVE HEPATITIS C ANTIBODY (test c ode = 58427-9) NON-REACTIVE HEPATITIS A AB, TOTAL (REFL) (test code = 96830-9) REACTIVE Ruben Purdy [id number] 00:00:00* Test Item Value Reference Range Interpretation Comme nts PROGESTERONE (test code = 2790) 20.30 NG/ML Ruben Gurwinder AustinHCG, [id number] 00:00:00* Test Item Value Reference Range Interpretation Comme nts HCG, QUANTITATIVE (test code = 2506) 2319 MIU/ML Ruben F [id number] 00:00:00* Test Item Value Reference Range Interpretation Comme nts PROGESTERONE (test code = 2790) 20.30 NG/ML Ruben F AustinHCG, [id number] 00:00:00* Test Item Value Reference Range Interpretation Comme nts HCG, QUANTITATIVE (test code = 2506) 2319 MIU/ML Ruben F [id number] 00:00:00* Test Item Value Reference Range Interpretation Comme nts PROGESTERONE (test code = 2790) 20.30 NG/ML Ruben F AustinHCG, [id number] 00:00:00* Test Item Value Reference Range Interpretation Comme nts HCG, QUANTITATIVE (test code = 2506) 2319 MIU/ML Ruben F AustinTHYROID STIMULATING [id number] 06:28:00* Test Item Value Reference Range Interpretation Comme nts TSH (test code = 7177900059) See_Comment [Automated messa ge] The system which generated this result transmitted reference range: 0.45 - 4.70 mIU/L. The reference range was not used to interpret this result as normal/abnormal. Lab Interpretation (test code = 36536-0) Normal [facility] METABOLIC PANEL (15428)2020-05-05 06:00:00* Test Item Value Reference Range Interpretation Comme nts NA (test code = 8471840303) 138 mmol/L 135-145 K (test code = 5054034672) 4.0 mmol/L 3.5-5 CL (test code = 7769973979) 101 mmol/L 98-108 CO2 TOTAL (test code = 5369711776) 26 mmol/L 23-31 AGAP (test code = 0620014116) 2-16 BUN (test code = 8875034907) 15 mg/dL 7-23 GLUCOSE (test code = 6770704444) 145 mg/dL 70-110 H CREATININE (test code = 2397877048) 1.40 mg/dL 0.5-1.04 H TOTAL BILI (test code = 5238549320) 0.6 mg/dL 0.1-1.1 CALCIUM (test code = 1325910654) 9.9 mg/dL 8.6-10.6 T PROTEIN (test code = 2196103046) 8.0 g/dL 6.3-8.2 ALBUMIN (test code = 2853706501) 4.6 g/dL 3.5-5 ALK PHOS (test code = 8806827306) 42 U/L 34-122 ALTv (test code = 1742-6) 13 U/L 5-35 AST(SGOT) (test code = 5381585346) 22 U/L 13-40 eGFR Calculation (Non-) (test code = 7898387854) mL/min/1.73m2 eGFR Calculation () (test code = 4008019927) mL/min/1.73m2 SAE (test code = SAE) Association [...] imaging tests). Lab Interpretation (test code = 90400-6) [facility]normal [facility] RAPID TESTING)2020-05-05 05:43:00* Test Item Value Reference Range Interpretation Comme nts SARS-CoV-2 Rapid ID NOW (test code = 27323-6) Not Detected Not Detected SAE (test code = SAE) ID NOW COVID-19 As say is an isothermal nucleic acid amplification test intended for the qualitative detection of nucleic acid from SARS-CoV-2 viral RNA in nasopharyngeal (MICROWAVE TECHNICIAN) specimens. It is used under Emergency [...] clinically indicated. Lab Interpretation (test code = 00311-0) [facility]2020-10-09 05:36:00* Test Item Value Reference Range Interpretation Comme nts APPEARANCE (test code = 7573487996) Cloudy Clear A COLOR (test code = 2032619418) Yellow Yellow PH (test code = 7902141264) 4.8-8.0 SP GRAVITY (test code = 5241764267) 1.003-1.030 GLU U QUAL (test code = 4513886420) Normal Normal BLOOD (test code = 8159331619) 1+ Negative A KETONES (test code = 4256665516) Negative Negative PROTEIN (test code = 2887-8) Negative Negative UROBILIN (test code = 8315015492) Normal Normal BILIRUBIN (test code = 0820095221) Negative Negative NITRITE (test code = 8748459412) Negative Negative LEUK ERROL (test code = 4730397790) 500/uL Negative A RBC/HPF (test code = 8377254241) See_Comment H [Automated messa ge] The system which generated this result transmitted reference range: 0 - 3 HPF. The reference range was not used to interpret this result as normal/abnormal. WBC/HPF (test code = 2183088578) See_Comment H [Automated messa ge] The system which generated this result transmitted reference range: 0 - 5 HPF. The reference range was not used to interpret this result as normal/abnormal. BACTERIA (test code = 5416432973) Few Negative A SQ EPITH (test code = 5602021109) HPF Lab Interpretation (test code = 24750-2) Abnormal General acute hospital with [id number] 05:35:00* Test Item Value Reference Range Interpretation [...] 34.4 g/dL 31.6-35.1 RDW-SD (test code = 25735-8) 38.2 fL 39-49.9 L RDW-CV (test code = 788-0) 12.3 % 12-15.5 PLT (test code = 777-3) See_Comment [Automated [employer] ge] The system which generated this result transmitted reference range: 166 - 358 10*3/?L. The reference range was not used to interpret this result as normal/abnormal. MPV (test code = 75307-0) 10.1 fL 9.5-12.9 NRBC/100 WBC (test code = 0920425267) See_Comment [Automated [employer] ssage] The system which generated this result transmitted reference range: 0.0 - 10.0 /100 WBCs. The reference range was not used to interpret this result as normal/abnormal. NRBC x10^3 (test code = 4466268361) <0.01 See_Comment [Automated Robodroma ge] The system which generated this result transmitted reference range: 10*3/?L. The reference range was not used to interpret this result as normal/abnormal. GRAN MAT (NEUT) % (test code = 770-8) 57.8 % IMM GRAN % (test code = 0625215053) 0.30 % LYMPH % (test code = 736-9) 31.5 % MONO % (test code = 5905-5) 9.7 % EOS % (test code = 713-8) 0.3 % BASO % (test code = 706-2) 0.4 % GRAN MAT x10^3(ANC) (test code = 5417370160) 5.28 10*3/uL 1.88-7.09 IMM GRAN x10^3 (test code = 8153753324) 0.03 10*3/uL 0-0.06 LYMPH x10^3 (test code = 731-0) 2.88 10*3/uL 1.32-3.29 MONO x10^3 (test code = 742-7) 0.89 10*3/uL 0.33-0.92 EOS x10^3 (test code = 711-2) 0.03 10*3/uL 0.03-0.39 BASO x10^3 (test code = 704-7) 0.04 10*3/uL 0.01-0.07 Lab Interpretation (test code = 52315-1) Abnormal [facility] [id number] 04:42:00* Test Item Value Reference Range Interpretation Comme nts POCT PREG (test code = 1605) negative On board controls acceptable with C Line (test code = 3574) present POCT PREG LOT # (test code = 3575) [id number] POCT PREG TEST DATE ( test code = 3576) 03/27/2021 Lab Interpretation (test cod e = 77544-6) Normal [facility], UrinePregnancy Test, UrineRequest Problem Notes Date/Time Note Provider Source 2024-09-01 11:30:00 Age: [age] year old GA: 24w5d Subjective No complaints today. No contractions, bleeding, leakage of fluid. No UTI sx. Objective Vitals and FHTs per flowsheet General: no acute distress Cardiac: regular rate Pulm: normal work of breathing Abd: soft, non-tender, gravid Assessment/Plan: Dalton Velez is a 24 year old at 24w5d who presents for routine OB visit. 1. Supervision of low-risk first , second trimester - Up to date on routine labs - NIPT low risk XY, neg carrier screening - MS-AFP WNL - MFM Anatomy sono wnl - 1 hr GTT lab appt scheduled 2. Gastroesophageal reflux disease without esophagitis - controlled 3. UTI sx - had previously - culture not sent, will re-send today 4. Itching - only on her sides at night - discussed using topical cream for improvement - will still send bile acids just in case Return to clinic in 4wks for routine OB, for Tdap at that time [facility] 2024-08-26 11:22:28 Images from the original note were not included. Shahnaz Mandel RN 08/20/24 8:26 AM Note Called pt Pt ID by name and . Pt is 23 weeks and c/o burning with urination as well as dysuria since yesterday as well as frequency. Pt denies fever, flank pain, or N&V. Pt denies vaginal d/c or pelvic pain. Pt scheduled this AM to [facility] at [facility]. Location address provided. Advised that she will need to give CCMS urine sample. To collect a clean catch urine sample: Carefully wash and dry your hands before removing the cap of the specimen container. Spread your labia apart with one hand and clean the area around the opening of your urethra with an antiseptic pad, keep labia spread apart as you urinate to prevent skin contamination Start urinating directly into the toilet, then urinate into the sterile container to collect a sample. Fill the container as instructed. Don't let any part of the container touch your genitals or skin. Recap the container. Pt verbalized understanding and agrees to POC. Pt sent to lab to leave urine sample for testing. [facility] 2024-08-20 09:00:00 Age: [age] year old GA: 23w0d Dysuria Pt c/o dysuria since yesterday, Denies urgency, frequency or suprapubic pain. Denies fever, chills, flank pain or extreme fatigue. Denies vaginal itching, irritation, discharge or odor. reports +FM Vitals: 08/20/24 0909 BP: 122/83 Pulse: 102 Weight: 118 lb 12.8 oz (53.9 kg) Height: 5' 6" (1.676 m) Gen: NAD Resp: normal inspiratory effort Abd: soft, gravid, non TTP FH: 22, FHTs 140s 1. Supervision of low-risk first , second trimester - U Dip neg, UCx sent. Will presumptively treat for UTI - GTT/CBC next visit - Up to date on routine labs - NIPT low risk XY, neg carrier screening - MS-AFP WNL - normal anatomy 08/06 2. Nausea - no vomiting - has zofran and reglan PRN, believes now more associated with reflux 3. Gastroesophageal reflux disease without esophagitis - famotidine 40 mg tablet ILEANA Milan [facility] 2024-08-20 08:20:26 Called pt Pt ID by name and . Pt is 23 weeks and c/o burning with urination as well as dysuria since yesterday as well as frequency. Pt denies fever, flank pain, or N&V. Pt denies vaginal d/c or pelvic pain. Pt scheduled this AM to [facility] at [facility]. Location address provided. Advised that she will need to give CCMS urine sample. To collect a clean catch urine sample: Carefully wash and dry your hands before removing the cap of the specimen container. Spread your labia apart with one hand and clean the area around the opening of your urethra with an antiseptic pad, keep labia spread apart as you urinate to prevent skin contamination Start urinating directly into the toilet, then urinate into the sterile container to collect a sample. Fill the container as instructed. Don't let any part of the container touch your genitals or skin. Recap the container. Pt verbalized understanding and agrees to POC. IT COLLECTOR Shahnaz Mandel RN [facility] 2024-08-20 08:12:04 Dalton Velez is a 24 year old female 23wks ob patient called states she is experiencing symptoms of a UTI which started yesterday. States she has burning during urination and says urine is cloudy. IT COLLECTOR Sun Rodriguez [facility] 2024-08-04 10:30:00 Age: [age] year old GA: 20w5d Subjective No complaints today. No contractions, bleeding, leakage of fluid. No UTI sx. Objective Vitals and FHTs per flowsheet General: no acute distress Cardiac: regular rate Pulm: normal work of breathing Abd: soft, non-tender, gravid Assessment/Plan: Dalton Velez is a 24 year old at 20w5d who presents for routine OB visit. 1. Supervision of low-risk first , second trimester - Up to date on routine labs - NIPT low risk XY, neg carrier screening - MS-AFP WNL - MFM Anatomy sono scheduled 08/06 - 1 hr GTT next visit 2. Nausea - no vomiting - has zofran and reglan PRN, believes now more associated with reflux 3. Gastroesophageal reflux disease without esophagitis - famotidine 40 mg tablet; Take 1 tablet by mouth in the morning for 90 days. Dispense: 90 tablet; Refill: 1 Return to clinic in 4wks for routine OB, 1 hr GTT at that time [facility] 2024-07-07 09:30:00 Age: [age] year old GA: 16w5d Subjective No complaints today. No contractions, bleeding, leakage of fluid. No UTI sx. Objective Vitals and FHTs per flowsheet General: no acute distress Cardiac: regular rate Pulm: normal work of breathing Abd: soft, non-tender, gravid Assessment/Plan: Dalton Velez is a 24 year old at 16w5d who presents for routine OB visit. # SIUP - Up to date on routine labs - NIPT low risk XY, neg carrier screening - MS-AFP today - MFM Anatomy sono ordered #Nausea - resolved Return to clinic in 4wks for routine OB [facility] 2024-06-21 07:58:05 Please review horizon from Ariella Scanned under Scanned Lab Results on 06/21 If action required please route to OBGYN Nurse Pool. [facility] Shahnaz Tong [facility] 2024-06-18 08:40:22 Please review Panorama results from Ariella Scanned under scanned lab results on 06-18-24 If action required please route to OBGYN Nurse Pool. Y Segundo [facility] 2024-06-17 22:30:27 Called 3x no answer. [facility] 2024-06-17 21:35:38 Dalton Velez is a 24 year old female With chief complaint generalized abdominal pain - denies any N/V/diarrhea. 14 weeks - denies any bleeding. IT COLLECTOR Satnam Gr RN [facility] 2024-06-10 14:08:46 Please review medical records from [facility] Scanned under External Provided on 06-10-24 If action required please route to OBGYN Nurse Pool. Y Goel [facility] 2024-05-31 10:48:26 Mychart sent Y Parker RN [facility] 2024-05-31 10:32:05 Patient is a new ob scheduled with Dr. De L aCruz 06-10 lmp 08-16 pt has been seen for at [facility] and will have records sent over before her appointment. [facility]2024-10-03 00:00:00 [facility]
[2024-09-09 15:35] LABS: Absolute Eosinophils 0.1 K/uL (0-0.5); Absolute Lymphocytes (CBC) 1.9 K/uL (0.7-4.9); Absolute Monocytes 0.7 K/uL (0.1-1.3); Absolute Neutrophil 8.3 K/uL (1.8-8.0); Basophils % 0.4 % (0-1.3); Eosinophils % 0.5 % (0-4.4); Hematocrit 35.1 % (36.0-45.0); Hemoglobin 12.1 g/dL (12.0-15.0); Lymphocytes % 17.2 % (15.3-44.8); MCH 30.9 pg (27.0-35.0); MCHC 34.4 g/dL (32.0-36.0); MCV 89.9 fL (80-100); MPV 8.7 fL (7.6-11.3); Monocytes % 6.6 % (3.3-12.3); Neutrophils % 75.3 % (41.7-73.7); Nucleated Red Blood Cells % 0.1 % (0-0); Platelets 243 thou/uL (152-406); Red Cell Distribution Width 13.1 % (12.1-15.2)
[2024-09-09 15:50] LABS: Anion Gap 5.5 mEq/L (5.0-15.0); BUN Blood Urea Nitrogen 12 mg/dL (7-18); Bicarbonate 29 mEq/L (21-32); Glomerular Filtration Rate 130 ml/min (=/>90); Glucose Level 97 mg/dL (74-106); Potassium 3.5 mEq/L (3.5-5.1); Sodium Level 139 mEq/L (136-145); Troponin High Sensitivity < 3.0 pg/mL (<58.9)
--- NOTE | 2024-09-09 16:16 | RAD REPORT ---
EXAMINATION: ONE VIEW CHEST XR CLINICAL INDICATION: Female, 24 years old.,CHEST PAIN TECHNIQUE: Frontal chest projection is submitted. Examination is limited by patient positioning and t echnique. COMPARISON: No prior exam. FINDINGS: The lungs are well inflated. No focal consolidation. Perihilar streaky opacities and mild haziness. No pneumothorax or sizable effusion. The heart is normal in size. Mediastinal contours are unremarkable. IMPRESSION: Perihilar changes as above, suggesting reactive airway changes or viral infection. No focal consolida tion.
--- NOTE | 2024-09-09 16:21 | EDPHYS ---
Physician Documentation [facility] Name: Yasmin Velez Age: 24 yrs Sex: Female : 2000 Arrival Date: 09/09/2024 Time: 14:36 Bed 1 Private MD: ED Physician Pedro Luis Turner HPI: 09/09 14:52 This 24 yrs old Female presents to ER via Ambulatory with complaints of Chest Pain, 26 sb4 weeks . 14:53 The patient presents to the emergency department with chest pain. The estimated sb4 gestational age is 26 weeks. course: care: private OB physician, Leakage of Fluid: none appreciated, Ultrasound: the patient had an ultrasound, Risk/complications: no obvious risks or complications are appreciated. 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 denies any URI symptoms. pain is lower chest/upper abdomen, thinks it may be pain from baby growing. ART EDUCATOR: 14:53 3, Full Term 0, Premature 0, 2, Living 0, Verified sb4 15:12 Verified ph Historical: - Allergies: 14:49 No Known Allergies; ll1 - PMHx: 14:49 Anxiety; depressive disorder; tension MOONEY; ll1 - PSHx: 14:49 None; ll1 - Immunization history:: Adult Immunizations up to date. - Infectious Disease History:: Denies. - Social history:: Smoking status: Patient denies any tobacco usage or history of. ROS: 14:53 Constitutional: Negative for fever, chills, and weight loss, sb4 14:53 Cardiovascular: Positive for chest pain, 14:53 All other systems are negative, Exam: 14:53 Constitutional: This is a well developed, well nourished patient who is awake, alert, sb4 and in no acute distress. Head/Face: Normocephalic, atraumatic. Eyes: Extra-ocular motions intact. Periorbital areas with no swelling, redness, or edema. ENT: Mucous membranes moist. Chest/axilla: Normal chest wall appearance and motion. Nontender with no deformity. No lesions are appreciated. Cardiovascular: Regular rate and rhythm with a normal S1 and S2. Respiratory: No increased work of breathing, no retractions or nasal flaring. Abdomen/GI: Soft, non-tender, no distension. Skin: Warm, dry with normal turgor. Normal color with no rashes, no lesions, and no evidence of cellulitis. Vital Signs: 14:48 BP 113 / 69; Pulse 89; Resp 17; Temp 97.5; Pulse Ox 100% ; Weight 54.43 kg; Height 5 ll1 ft. 6 in. ; Pain 4/10; 16:28 BP 108 / 72; Pulse 91; Resp 18; Temp 97; Pulse Ox 98% on R/A; ph 14:48 Body Mass Index 19.37 (54.43 kg, 167.64 cm) ll1 14:48 Pain Scale: Adult ll1 MDM: 14:44 Medical Screening Exam initiated sb4 16:00 Data reviewed: vital signs, nurses notes, lab test result(s), EKG, radiologic studies, sb4 and as a result, I will discharge patient. Counseling: I had a detailed discussion with the patient and/or guardian regarding the historical points, exam findings, and any diagnostic results supporting the discharge/admit diagnosis, lab results, radiology results, the need for outpatient follow up, an OB/Gyne specialist, to return to the emergency department if symptoms worsen or persist or if there are any questions or concerns that arise at home. 09/09 14:51 Order name: Basic Metabolic Panel; Complete Time: 15:54 sb4 09/09 14:51 Order name: CBC with Diff; Complete Time: 15:46 sb4 09/09 14:51 Order name: Troponin HS; Complete Time: 15:54 sb4 09/09 14:51 Order name: XRAY Chest (1 view); Complete Time: 16:18 sb4 09/09 14:51 Order name: Cardiac monitoring; Complete Time: 16:01 sb4 09/09 14:51 Order name: EKG - Nurse/Tech; Complete Time: 16:01 sb4 09/09 14:51 Order name: IV Saline Lock; Complete Time: 15:23 sb4 09/09 14:51 Order name: Labs collected and sent; Complete Time: 15:23 sb4 09/09 14:51 Order name: O2 Per Protocol; Complete Time: 15:06 4 09/09 14:51 Order name: O2 Sat Monitoring; Complete Time: 15:06 4 09/09 14:51 Order name: FHT's; Complete Time: 15:23 sb4 EC:50 Rate is 84 beats/min. Rhythm is regular, Normal Sinus Rhythm. SD interval is normal at sb4 132 msec. QRS interval is normal at 74 msec. QT interval is normal at 368 msec. No Q waves. T waves are Normal. No ST changes noted. Clinical impression: Normal ECG. Interpreted by me. Reviewed by me. Administered Medications: No medications were administered Disposition Summary: 09/09/24 16:21 Discharge Ordered Notes: Location: Home sb4 Problem: new sb4 Symptoms: have improved sb4 Condition: Stable sb4 Diagnosis - Chest pain, unspecified sb4 - 26 weeks gestation of sb4 Followup: sb4 - With: Emergency Department - When: As needed - Reason: Trouble breathing, Worsening of condition Discharge Instructions: - Discharge Summary Sheet sb4 - Abdominal Pain During sb4 - Nonspecific Chest Pain, Adult, [id number] sb4 Forms: - Patient Portal Instructions sb4 - Leadership Thank You Letter sb4 Addendum: 09/12/2024 07:52 I was immediately available for consultation during this patient's visit. I did not e c2 personally see the patient or discuss the patient with the RENATO. . Signatures: Dispatcher [employer] EDRaquel Childers RN RN Miguel A Thomason RN RN ll1 Sis Akins PA-C PA-C sb4 Pedro Luis Turner MD MD ec2 Corrections: (The following items were deleted from the chart) 09/09 14:52 14:52 BASIC METABOLIC PANEL+C.LAB.BRZ ordered. EDMS EDMS 14:52 14:52 CBC+H.LAB.BRZ ordered. EDMS EDMS 14:52 14:52 Troponin High Sensitivity+C.LAB.BRZ ordered. EDMS EDMS 14:52 14:52 Chest Single View+RAD.RAD.BRZ ordered. EDMS EDMS
--- NOTE | 2024-09-09 16:21 | ER ---
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 G3, P0 AB2. Coronavirus screen: Client denies travel out of the [place] in the last 14 days. difficulty breathing, shortness of breath, Client presents with at least one sign or symptom that may indicate coronavirus-19. Standard/surgical mask placed on the client. Ebola Screen: Patient denies travel to an Ebola-affected area in the 21 days before illness onset. Initial Sepsis Screen: Does the patient meet any 2 criteria? No. Patient's initial sepsis screen is negative. Does the patient have a suspected source of infection? No. Patient's initial sepsis screen is negative. Risk Assessment: Do you want to hurt yourself or someone else? Patient reports no desire to harm self or others. Onset of symptoms was September 09, 2024. 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 - Infectious Disease History:: Denies. - Social history:: Smoking status: Patient denies any tobacco usage or history of. Screenin:11 [facility] ED Fall Risk Assessment (Adult) History of falling in the last 3 months, ph including since admission No falls in past 3 months (0 pts) Confusion or Disorientation No (0 pts) Intoxicated or Sedated No (0 pts) Impaired Gait No (0 pts) Mobility Assist Device Used No (0 pt) Altered Elimination No (0 pt) Score/Fall Risk Level 0 - 2 = Low Risk Oriented to surroundings, Maintained a safe environment, Hourly rounding (assess needs \T\ fall precautionary measures) done. Abuse screen: Denies threats or abuse. Denies injuries from another. Nutritional screening: No deficits noted. Tuberculosis screening: No symptoms or risk factors identified. Assessment: 15:10 General: Appears in no apparent distress. comfortable, slender, well groomed, Behavior ph is calm, cooperative, appropriate for age. Pain: Complains of pain in diaphragm Pain does not radiate. Pain began 2 hours ago. Neuro: Level of Consciousness is awake, alert, obeys commands, Oriented to person, place, time, situation. Cardiovascular: Reports chest pain, shortness of breath. Respiratory: Airway is patent Respiratory effort is even, unlabored. Respiratory: Breath sounds are clear bilaterally. : Denies discharge, vaginal bleeding. Derm: Skin is pink, warm \T\ dry. Vital Signs: 14:48 BP 113 / 69; Pulse 89; Resp 17; Temp 97.5; Pulse Ox 100% ; Weight 54.43 kg; Height 5 ll1 ft. 6 in. ; Pain 4/10; 16:28 BP 108 / 72; Pulse 91; Resp 18; Temp 97; Pulse Ox 98% on R/A; ph 14:48 Body Mass Index 19.37 (54.43 kg, 167.64 cm) ll1 14:48 Pain Scale: Adult ll1 Vitals: 15:38 Heart Tones 147 bpm. kc6 ED Course: 14:38 Patient arrived in ED. im 14:44 Sis Akins [facility]C [facility]. sb4 14:44 Pedro Luis Turner MD is Attending Physician. sb4 14:49 Triage completed. ll1 14:50 Arm band placed on Patient placed in an exam room, on a stretcher. ll1 15:10 Raquel Santana, ERICA is Primary Nurse. ph 15:12 Patient has correct armband on for positive identification. Bed in low position. Call ph light in reach. Side rails up X 1. Pulse ox on. NIBP on. Door closed. Noise minimized. Warm blanket given. 15:12 Patient maintains SpO2 saturation greater than 95% on room air. ph 15:21 X-ray completed. Portable x-ray completed in exam room. Patient tolerated procedure mh1 well. 15:25 XRAY Chest (1 view) In Process Unspecified. EDMS 16:29 No provider procedures requiring assistance completed. IV discontinued, intact, ph bleeding controlled, No redness/swelling at site. Pressure dressing applied. Administered Medications: No medications were administered Medication: 15:11 VIS not applicable for this client. ph Outcome: 16:21 Discharge ordered by . [email or web address] 16:29 Discharged to home ambulatory, ph 16:29 Condition: good 16:29 Discharge instructions given to patient, Instructed on discharge instructions, follow up and referral plans. Demonstrated understanding of instructions, follow-up care, 16:29 Patient left the ED. ph Signatures: Dispatcher [employer] EDMS Savanna Batres 1 Raquel Santana RN RN ph Miguel A Koch RN RN ll1 Yolanda Wilkins RN RN kc6 Sis Akins PALindy PALindy sb4 Becca Taveras
[2024-09-09 16:34] VITALS: BP 108/72; TEMP 97; O2SAT 98
== END 2024-09-09 16:29 | disposition home or self-care (01) ==
LOC: ER 14:36
DX: O26.892 Other specified pregnancy related conditions, second trimester (principal); R07.9 Chest pain, unspecified; Z3A.26 26 weeks gestation of pregnancy
CPT/HCPCS: 36415; 71045; 80048; 84484; 85025; 93005; 99284